=== PATIENT | male | born 1940 | race Caucasian/White ===

== ENCOUNTER 2020-01-21 06:42 | Day surgery (SDC) | payer OTHER ==
[2020-01-18 15:04] LABS: BUN Blood Urea Nitrogen 18 mg/dL (7-18); Bicarbonate 30 mmol/L (21-32); Glucose Level 101 mg/dL (74-106); Potassium 4.1 mmol/L (3.5-5.1); Sodium Level 143 mmol/L (136-145)
[2020-01-18 15:07] LABS: Absolute Lymphocytes (CBC) 1.4 K/uL (0.7-4.9); Basophils % 0.5 % (0-1.3); Hematocrit 36.2 % (39.6-49.0); Lymphocytes % 38.4 % (15.3-44.8); MPV 11.5 fL (7.6-11.3); RBC Red Blood Cell Count 3.89 M/uL (4.33-5.43)
[2020-01-18 15:12] LABS: Protime INR 0.97
--- NOTE | 2020-01-18 16:07 | RAD REPORT ---
EXAM DESCRIPTION: Kamila Schwartz And Adam (2 Views)01/18/2020 3:48 pm CLINICAL HISTORY: Preop for cardiac catheterization upper. Shortness of breath COMPARISON: None FINDINGS: Small bilateral pleural effusions. The lungs appear clear of acute infiltrate. The heart is upper limits normal size IMPRESSION: Small bilateral pleural effusions
[2020-01-18 18:12] LABS: Anisocytosis 2+; Blood Morphology Comment NOTED (NOT SEEN); Platelet Estimate DECR; White Blood Cell Scan OK (OK)
[2020-01-18 18:13] LABS: Poikilocytosis 2+
--- NOTE | 2020-01-20 06:11 | EKG ---
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
--- OUTSIDE RECORDS SUMMARY | 2020-01-21 06:45 | XMS REPORT | Continuity of Care Document ---
:1940 Author Organization [facility] t Address [address] [place] [address] Dr. Bryant. [address] [place] [address] Care Team Providers Name Role Phone Odilia MINER Primary Care Physician Sadie Crain DO Attending Clinician Viviana RN Attending Clinician Unavailable Gato RN Attending Clinician Unavailable ASHLEY Attending Clinician Unavailable ASHLEY Admitting Clinician Unavailable Payers Payer Name Policy Type Policy Effective Date Expiration Date Sour ce Number AETNA MEDICAREAETNA [id number] 2013 [place] MEDICARE HMO/PPO 00:00:00 Methodis t [id number] -PresentHMO Problems This patient has no known problems. Allergies, Adverse Reactions, Alerts This patient has no known allergies or adverse reactions. Social History Social Habit Start Date Stop Date Quantity Comments Source Sex Assigned At Jefferymeggan estradaestelita Pagan Smoking Status Start Date Stop Date Source Current some day smoker 2019-10-07 00:00:00 All Ledbetterist Medications Ordered Filled Start Stop Current Ordering Indication Dosage Frequency Signature Comments Components Source Medication Medication Date Date Medication? Clinician (SIG) Name Name aspirin 2020-0 Yes 81mg QD Take 81 mg [place] (ECOTRIN) 8-19 by mouth Method i 81 MG 09:16: daily. st enteric 58 coated tablet carvediloL 2020-0 Yes 6.25mg Q.5D Take 6.25 Scott (COREG) 8-19 mg by Methodi 6.25 MG 09:16: mouth 2 st tablet 58 (two) times a day with meals. levothyroxi 2020-0 Yes 100ug QD Take 100 [place] 8-19 mcg by Methodi (SYNTHROID) 09:16: mouth st 100 mcg 58 daily. tablet metFORMIN Yes 1000mg Q.5D Take 1,000 Scott (GLUCOPHAGE 8-19 mg by Methodi ) 1,000 mg 09:16: mouth 2 st tablet 58 (two) times a day with meals. Vital Signs Vital Name Observation Time Observation Value Comments Source Heart rate 2019-10-07 12:25:00 70 /min Tyler Paagn Systolic blood 2019-10-07 12:18:00 156 mm[Hg] [place] Scientologist pressure Diastolic blood 2019-10-07 12:18:00 74 mm[Hg] [place] Scientologist pressure Respiratory rate 2019-10-07 12:18:00 16 /min All Pagan Oxygen saturation in 2019-10-07 12:18:00 98 /min Tyler Pagan Arterial blood by Pulse oximetry Body temperature 2019-10-07 08:40:00 36.5 Noreen All Pagan Body height 2019-10-07 08:40:00 180.3 cm Tyler Pagan Body weight 2019-10-07 08:40:00 87.091 kg Tyler Pagan BMI 2019-10-07 08:40:00 26.78 kg/m2 Tyler Pagan Procedures Procedure Date / Time Performing Clinician Source Performed POC GLUCOSE 2019-10-07 10:56:00 Hal Crain odi US NEEDLE BIOPSY 2019-10-07 10:42:40 Hal Crain ethodist SURGICAL PATHOLOGY REQUEST 2019-10-07 09:44:00 Hal Crain PROTHROMBIN TIME WITH INR 2019-10-05 13:44:00 Hal Crain PARTIAL THROMBOPLASTIN 2019-10-05 13:44:00 Hal Crain TIME (PTT) HC COMPLETE BLD COUNT 2019-10-05 13:44:00 Hal Crain W/AUTO DIFF BASIC METABOLIC PANEL 2019-10-05 13:44:00 Hal Crain ESTIMATED GFR 2019-10-05 13:44:00 Hal Crain Id thodi Plan of Care Planned Activity Planned Date Details Comments Source Future Scheduled 2019-09-19 INFLUENZA VACCINE [place] Scientologist Test 00:00:00 [code = INFLUENZA VACCINE] Future Scheduled 2003-10-20 65+ PNEUMOCOCCAL [place] Scientologist Test 00:00:00 VACCINE (1 of 1 - PPSV23) [code = 65+ PNEUMOCOCCAL VACCINE (1 of 1 - PPSV23)] Future Scheduled 1988 SHINGLES VACCINES (#1) [place] Scientologist Test 00:00:00 [code = SHINGLES VACCINES (#1)] Future Scheduled 1948 DIABETES: RETINAL EYE [place] Scientologist Test 00:00:00 EXAM [code = DIABETES: RETINAL EYE EXAM] Future Scheduled 1948 DIABETIC FOOT EXAM [place] Scientologist Test 00:00:00 [code = DIABETIC FOOT EXAM] Future Scheduled 1950 URINE MICROALBUMIN [place] Scientologist Test 00:00:00 [code = URINE MICROALBUMIN] Encounters Start End Encounter Admission Attending Care Care Encounter Source Date/Time Date/Time Type Type Clinicians Facility Department ID 2019-10-07 2019-10-07 Outpatient [facility] [id number] [place] 00:00:00 00:00:00 HAL 205 Method i 2019-10-05 2019-10-05 Outpatient [facility] [id number] [place] 00:00:00 00:00:00 HAL 621 Method i 2016-03-27 2016-03-27 Outpatient [facility] 012 [id number] [place] 00:00:00 00:00:00 DISHA 508 Method i 2015-11-16 2015-11-16 Outpatient [facility] 012 [id number] [place] 00:00:00 00:00:00 DISHA 906 Method i 2015-11-11 2015-11-11 Outpatient [facility] 012 [id number] [place] 00:00:00 00:00:00 DISHA [address] Results Test Description Test Time Test Comments Results Result Comments Source Surgical pathology request 2019-10-09 19:58:17 Test Item Value Reference Range Interpretation Comme nts Case number (test code = 0174249) [id number] Surgical pathology report (test code = See link below for PDF Lab R eport 6263) Result status (test code = 2458821) This is Final Report for [id number] Tyler PaganUS Needle [id number] 11:14:23Hm Interface, Radiology Results 10/07/2019 11:17 AM CDTProcedure:CT-guided left renal biop syPerforming Radiologist:Alton Lara, MDAssistants:NoneAnesthesia Type: Intraservice moderate sedation was administered by the procedure nurse and monitored by the procedure physician for51 minutes. Lidocaine 1% was used for local anesthesia.Preprocedure Diagnosis:ProteinuriaPost Procedure Diagnosis:Same Technique:After explaining the procedure as well as its benefits and risks including but not limited to bleeding, infection, and damage to adjacent structures, all of the patient's questions were answered to apparent satisfaction and written informed consent was then obtained.The patient was terence en to the ultrasound suite and placed prone on the table. The left flank was interrogated with ultrasound and appropriate site access identified within the inferior pole of the left kidney. The overlying skin was then prepped and draped in usual sterile fashion. Lidocaine was administered locally.Under direct ultrasound guidance a 17-gauge introducer needle was inserted into the cortex of the inferior pole of the left kidney. In a coaxial fashion, multiple 18-gauge core biopsy samples were obtained.Specimens were sent to pathology and adequacy confirmed.Following procedure all needles were removedfrom the patient. Post procedure imaging revealed a small perinephric hematoma. Hemostasis was achieved after direct ultrasound-guided manual compression. Patient tolerated the procedure well.Complications:NoneSpecimens Removed:As aboveEstimated Blood Loss:Less than 100 mLBlood/Blood Products Administered:NoneGrafts/Implants:As described in the above report.Impression:Successful, uncomplicated ultrasound- guided left renal biopsy.[facility]-[id number] [facility] [id number] 10:59:30 Test Item Value Reference Range Interpretation Comments POC glucose (test code 157 mg/dL 65-99 H Opera tor Name: Viviana = [id number]) ElaineDevice ID : [id number] Lab Interpretation Abnormal (test code = 16926-1) Tyler Pagan
--- OUTSIDE RECORDS SUMMARY | 2020-01-21 06:45 | XMS REPORT | Clinical Summary ---
:1940 Author Organization [facility] Address [address] [place] [address] Care Team Providers Name Role Phone MD Odilia Primary Care Provider Allergies No Known Active Allergies Medications Medication Sig Dispensed Refills Start Date End Date Status aspirin (ECOTRIN) 81 MG Take 81 mg by 0 Active enteric coated tablet mouth daily. carvediloL (COREG) 6.25 Take 6.25 mg by 0 Active MG tablet mouth 2 (two) times a day with meals. levothyroxine Take 100 mcg by 0 Active (SYNTHROID) 100 mcg mouth daily. tablet metFORMIN (GLUCOPHAGE) Take 1,000 mg by 0 Active 1,000 mg tablet mouth 2 (two) times a day with meals. Active Problems Not on file Encounters Date Type Specialty Care Team Description 10/07/2019 Hospital Encounter Radiology Francisco Crain DO Sia, Elaine, RN 10/07/2019 Travel 10/05/2019 Travel 09/16/2019 Travel 09/16/2019 Telephone Pre-Admission Dali Hoskins Testing RN 09/14/2019 Travel 09/07/2019 Transcribe Orders Radiology Francisco Crain DO (Primary Dx) after 01/20/2019 Surgical History Surgery Date Site/Laterality Comments CORONARY ARTERY BYPASS GRAFT THYROIDECTOMY, PARTIAL Left Medical History Medical History Date Comments Hypertension Diabetes mellitus (HCC) Thyroid disease CAD (coronary artery disease) Social History Tobacco Use Types Packs/Day Years Used Date Current Some Day Smoker Sex Assigned at Date Recorded Not on file Last Filed Vital Signs Vital Sign Reading Time Taken Comments Blood Pressure 156/74 10/07/2019 12:18 PM CDT Pulse 70 10/07/2019 12:25 PM CDT Temperature 36.5 C (97.7 F) 10/07/2019 8:40 AM CDT Respiratory Rate 16 10/07/2019 12:18 PM CDT Oxygen Saturation 98% 10/07/2019 12:18 PM CDT Inhaled Oxygen Concentration - - Weight 87.1 kg (192 lb) 10/07/2019 8:40 AM CDT Height 180.3 cm (5' 11") 10/07/2019 8:40 AM CDT Body Mass Index 26.78 10/07/2019 8:40 AM CDT Plan of Treatment Health Maintenance Due Date Last Done Comments DIABETES: RETINAL EYE EXAM 1950 DIABETIC FOOT EXAM 1950 URINE MICROALBUMIN 1948 SHINGLES VACCINES (#1) 1988 65+ PNEUMOCOCCAL VACCINE (1 of 1 - PPSV23) 10/20/2003 INFLUENZA VACCINE 09/19/2019 Procedures Procedure Name Priority Date/Time Associated Comments Diagnosis POC GLUCOSE Routine 10/07/2019 10:56 Results for this AM CDT procedure are i n the results section. US NEEDLE BIOPSY Routine 10/07/2019 10:42 Other proteinuria Re sults for this AM CDT procedure are i n the results section. SURGICAL PATHOLOGY Routine 10/07/2019 9:44 Resul ts for this REQUEST AM CDT procedure are i n the results section. ESTIMATED GFR Routine 10/05/2019 1:44 Results fo r this PM CDT procedure are i n the results section. BASIC METABOLIC PANEL Routine 10/05/2019 1:44 Preop testing R esults for this PM CDT procedure are i n the results section. HC COMPLETE BLD COUNT Routine 10/05/2019 1:44 Preop testing R esults for this W/AUTO DIFF PM CDT procedure are i n the results section. PARTIAL THROMBOPLASTIN Routine 10/05/2019 1:44 Preop testing Results for this TIME (PTT) PM CDT procedure are i n the results section. PROTHROMBIN TIME WITH Routine 10/05/2019 1:44 Preop testing R esults for this INR PM CDT procedure are i n the results section. after 01/20/2019 Results POC glucose (10/07/2019 10:56 AM CDT) Pathologist Sig nature POC glucose 157 (H) 65 - 99 mg/dL NEVIN GOMEZ Comment: [facility] Resolution Expert Name: Viviana Sandy Device ID: [id number] Specimen Blood Performing Organization Address City/State/ZIP Code Phon e Number [facility] DEPARTMENT OF PATHOLOGY [address] [facility]. [place] [address] AND GENOMIC MEDICINE [facility] [place] [address] [facility] [place] [address] H[facility] US Needle Biopsy (10/07/2019 10:42 AM CDT) Specimen Narrative Performed At [facility] Procedure: CT-guided left renal biopsy Performing Radiologist: Alton Lara MD Assistants: None Anesthesia Type: Intraservice moderate sedation was administered by the procedure nurse and monitored by the procedure physician for51 minutes . Lidocaine 1% was used for local anesthesia. Preprocedure Diagnosis: Proteinuria Post Procedure Diagnosis: Same Technique: After explaining the procedure as well as its benefits and risks including but not limited to bleeding, infection, and damage to adjacent structures, all of the patient's questions were answer ed to apparent satisfaction and written informed consen t was then obtained. The patient was taken to the ultrasound suite and plac ed prone on the table. The left flank was interrogated with ultrasound and appropriate site access identified within the inferior pole of the left kidney. The overlying skin was then prepped and draped in usual sterile fashion. Lidocai ne was administered locally. Under direct ultrasound guidance a 17-gauge introducer needle was inserted into the cortex of the inferior pole of the l eft kidney. In a coaxial fashion, multiple 18-gauge core biopsy samples were obtained. Specimens were sent to pathology and shahzad quacy confirmed. Following procedure all needles were removed from the patient. Post procedure imaging revealed a small perinephric hematom a. Hemostasis was achieved after direct ultrasound-guided manual desirae any. Patient tolerated the procedure well. Complications: None Specimens Removed: As above Estimated Blood Loss: Less than 100 mL Blood/Blood Products Administered: None Grafts/Implants: As described in the above report. Impression: Successful, uncomplicated ultrasound-peter ded left renal biopsy. [facility]-[id number] Procedure Note Interface, Radiology Results Incoming - 10/07/2019 11:17 AM CDT Procedure: CT-guided left renal biopsy Performing Radiologist: Alton Lara MD Assistants: None Anesthesia Type: Intraservice moderate sedation was admin istered by the procedure nurse and monitored by the procedure physician for51 minutes. Lidocaine 1% was used for local anesthesia. Preprocedure Diagnosis: Proteinuria Post Procedure Diagnosis: Same Technique: After explaining the procedure as well a s its benefits and risks including but not limited to bleeding, infection, and damage to adjacent structures, all of the patient's questions were answered to apparent satisfaction and written informed consent was then obtained. The patient was taken to the ultrasound suite and placed prone on the table. The left flank was interrogated with ultrasound and appropriate site access identified within the inferior pole of the left kidney. The overlying skin was then prepped and draped in usual sterile fashion. Lidocai ne was administered locally. Under direct ultrasound guidance a 17-ga uge introducer needle was inserted into the cortex of the inferior pole of the left kidney. In a coaxial fashion, multiple 18-gauge core biopsy samples were obtained. Specimens were sent to pathology and adequacy confirmed. Following procedure all needles were rem mallory from the patient. Post procedure imaging revealed a small perinephric hematoma. Hemostasis was achieved after direct ultrasound-guided manual compression. Patient tolerated the procedure well. Complications: None Specimens Removed: As above Estimated Blood Loss: Less than 100 mL Blood/Blood Products Administered: None Grafts/Implants: As described in the above report. Impression: Successful, uncomplicated ultrasound-peter ded left renal biopsy. [facility]-[id number] Performing Organization Address City/[facility]/ZIP Code Phon e Number [facility] [address] [place] [address] Surgical pathology request (10/07/2019 9:44 AM CDT) [facility] DEPARTMENT OF PATHOLOGY AND GENOMIC MEDICINE Surgical pathology See link below [facility] DEPARTMENT OF report for PDF Lab PATHOLOGY AND Report GENOMIC MEDICINE Result status This is Final [facility] DEPARTMENT OF Report for PATHOLOGY AND [id number] GENOMIC MEDICINE Specimen Performing Organization Address City/[facility]/ZIP Code Phon e Number [facility] DEPARTMENT OF PATHOLOGY [address] [facility]. [place] [address] AND GENOMIC MEDICINE Estimated GFR (10/05/2019 1:44 PM CDT) Estimated GFR 82 mL/min/1.73 [facility] Comment: m2 [place] Catergory Units Interpretation HOS PITAL G1 >=90 Normal or high G2 60-89 Mildly decreased G3a 45-59 Mildly to moderately decreas ed G3b 30-44 Moderately to severely decre ased G4 15-29 Severely decreased G5 <15 Kidney failure The eGFR was calculated using the Chronic Kidney Disea se Epidemiology Collaboration (CKD-EPI) equation. Interpretation is based on recommendations of the National Kidney Foundation-Kidney Disease Outcomes Olu lity Initiative (NKF-KDOQI) published in 2014. Specimen Performing Organization Address [facility] Phon e Number [facility] DEPARTMENT OF PATHOLOGY [address] [place] [address] Partial thromboplastin time, activated (10/05/2019 1:44 PM CDT) PTT 28.6 23.0 - 36.0 [facility] Comment: [facility] PTT therapeutic range for unfractionated heparin is HOSPITAL 61.0-112.0 seconds which corresponds to Anti-Xa 0.3-0.7 U/ml. Specimen Blood Performing Organization Address [facility] Phon e Number [facility] DEPARTMENT OF PATHOLOGY [address] [place] [address] Prothrombin time with INR (10/05/2019 1:44 PM CDT) Pathologist [facility] Prothrombin time 13.8 11.5 - 14.5 [facility] INR 1.1 NEVIN Comment: PATRICIA VIVAR The International Normalized Ratio (INR) is a therapeu [facility] monitoring tool for patients who are stable on oral anticoagulant therapy. An INR of 2.0-3.0 is suggested for deep vein thrombosis/pulmonary embolism. Specimen Blood Performing Organization Address [facility] Phon e Number [facility] DEPARTMENT OF PATHOLOGY [address] [place] [address] CBC with platelet and differential (10/05/2019 1:44 PM CDT) WBC 4.2 (L) 4.5 - 11.0 [facility] k/uL [facility] RBC 3.60 (L) 4.40 - 6.00 [facility] m/uL [facility] HGB 10.8 (L) 14.0 - 18.0 [facility] g/dL [facility] HCT 34.7 (L) 41.0 - 51.0 % [facility] MCV 96.4 82.0 - 100.0 [facility] MCH 30.0 27.0 - 34.0 [facility] MCHC 31.1 31.0 - 37.0 [facility] g/dL [facility] RDW - SD 56.6 (H) 37.0 - 55.0 [facility] MPV SEE 6.9 - [address] [facility] COMMENTComment: FAY No report HOSPITAL Platelet count 71 (L) 150 - 400 [facility] K/uL [facility] Nucleated RBC 0.00 /100 WBC [facility] Neutrophils 47.1 39.0 - 69.0 % [facility] Lymphocytes 41.8 25.0 - 45.0 % [facility] Monocytes 9.7 0.0 - 10.0 % [facility] Eosinophils 1.0 0.0 - 5.0 % [facility] Basophils 0.2 0.0 - 1.0 % [facility] Immature granulocytes 0.2 0.0 - 1.0 % [facility] Specimen Blood Performing Organization Address City/State/ZIP Code Phon e Number [facility] DEPARTMENT OF PATHOLOGY [address] [facility] [place] [address] AND GENOMIC MEDICINE [facility] [address] [facility] [place] [address] HOSPITAL Basic metabolic panel (10/05/2019 1:44 PM CDT) Pathologist [facility] nature Sodium 139 135 - 148 mEq/L [facility] Potassium 4.6 3.5 - 5.0 mEq/L [facility] Chloride 105 98 - 112 mEq/L [facility] CO2 28 24 - 31 mEq/L [facility] Anion gap 6@ANIO (L) 7 - 15 mEq/L [facility] BUN 15 8 - 23 mg/dL [facility] Creatinine 0.85 0.70 - 1.20 mg/dL [facility] Glucose 155 (H) 65 - 99 mg/dL [facility] Calcium 9.0 8.8 - 10.2 mg/dL [facility] Specimen Blood Performing Organization Address City/State/ZIP Code Phon e Number [facility] DEPARTMENT OF PATHOLOGY [address] [facility] [address] AND GENOMIC MEDICINE [facility] [address] [facility], [place] [address] HOSPITAL after 01/20/2019 Advance Directives For more information, please contact: [phone] Type Date Recorded 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
[2020-01-21] MEDS ORDERED: NA CHLORIDE 0.9% 500 ML ONE (07:01)
[2020-01-21] MEDS ORDERED: HEPA 1000U/500MLS 1,000 UNIT/500 ML BAG IV ONE (07:39)
[2020-01-21] MEDS ORDERED: MIDAZOLAM HCL 2 MG/2 ML INJ ONE ×2 (07:40→07:48)
[2020-01-21] MEDS ORDERED: NA CHLORIDE 0.9% 0 ML ONE (07:40)
[2020-01-21] MEDS ORDERED: ATROPINE SULF 1 MG/10 ML SYR IV ONE (07:40)
[2020-01-21] MEDS ORDERED: FENTANYL CITR 100 MCG/2 ML ONE (07:40)
--- NOTE | 2020-01-21 08:31 | OP ---
Surgeon: Sean Ponce MD Rubber [employer] Plastics Worker: Oleg De Jesus. The patient will remain in the hospital for 2 hours at bedrest, go home and see me in the office in t he next 2 weeks. Admitted to my service as an outpatient on 01/21/2020. He was admitted to the laboratory apparatus glass grinder as an outpati ent for a heart catheterization. Indication: CAD, chest pain, positive stress test. History Of Present Illness: Mr. Almendarez is 79, has had bypass surgery in 2004, positive stress test recently, brought to the laboratory apparatus glass grinder today as an outpatient. He underwent a selective coronary artery a ngiography, vein graft injection to the OM and a KU injection to the LAD. Description Of Procedure: He had been prepped and draped in the routine sterile fashion. Given Vers ed and fentanyl for sedation. Using a 6-[place] sheath, we used a Seldinger technique to introduce it in the right common femoral artery successfully after 10 cc of xylocaine. There were no hematoma. Angiography was normal. Angioseal was used to close the case. A JL4 catheter was used to cannulate the left main. There was a 70% left main stenosis. LAD was completely occluded. RCA was cannulated with the JR4 and was small and nondominant. Also using the JR4 catheter, we cannulated the vein gra ft to the OM that was widely patent. We then moved the JR4 catheter to the KU and the ejection the re showed a patent KU to the LAD. 6-[place] sheath and catheters were used. There were no complica tions. Blood Loss: 5 mL. Postoperative Diagnosis: Severe coronary artery disease. Plan: To continue medical therapy, probably increase his beta-neto dose. Anesthesia: Total conscious sedation was 45 minutes. NB/MODL Voice ID: [id number] Report ID: [id number]
[2020-01-21 09:55] VITALS: TEMP 97.2
[2020-01-21 11:01] VITALS: O2SAT 96
[2020-01-21 11:02] VITALS: BP 168/76
== END 2020-01-21 10:25 | disposition home or self-care (01) ==
LOC: PRE 06:42 → CCL 10:25
DX: I25.10 Atherosclerotic heart disease of native coronary artery without angina pectoris (principal); I25.82 Chronic total occlusion of coronary artery; I65.23 Occlusion and stenosis of bilateral carotid arteries; I13.0 Hypertensive heart and chronic kidney disease with heart failure and stage 1 through stage 4 chronic kidney disease, or unspecified chronic kidney disease; E11.22 Type 2 diabetes mellitus with diabetic chronic kidney disease; N18.2 Chronic kidney disease, stage 2 (mild); I50.22 Chronic systolic (congestive) heart failure; E78.2 Mixed hyperlipidemia; E03.9 Hypothyroidism, unspecified; Z95.1 Presence of aortocoronary bypass graft; Z87.891 Personal history of nicotine dependence; Z20.828 Contact with and (suspected) exposure to other viral communicable diseases; Z82.49 Family history of ischemic heart disease and other diseases of the circulatory system
CPT/HCPCS: 93005; 85025; 80048; 36415; 85610; 82947; 85730; 71046; 93455; U0002; C1893; C1760; J2250 ×2; J3010; J7040; J1644; J0583

== ENCOUNTER 2020-04-04 18:44 | Emergency (ER) | payer OTHER ==
--- NOTE | 2020-04-04 19:13 | RAD REPORT ---
EXAM DESCRIPTION: CT - CTHCSPWOC - 04/04/2020 7:03 pm CLINICAL HISTORY: Trauma, head and neck injury. PAIN COMPARISON: No comparisons TECHNIQUE: Axial 5 mm thick images of the head were obtained. Axial 2 mm thick images of the cervical spine were obtained with sagittal and coronal reconstruction images generated and reviewed. All CT scans are performed using dose optimization technique as appropriate and may include automated exposure control or mA/KV adjustment according to patient size. FINDINGS: CT HEAD WITHOUT CONTRAST: No acute hemorrhage, hydrocephalus or extra-axial collection is identified.Mild generalized brain atr ophy is present with mild periventricular and deep white matter chronic microvascular ischemic change s.No areas of brain edema or midline shift. The paranasal sinuses and mastoids are clear.The calvarium is intact. Both vertebral arteries are alfredo cified. CT CERVICAL SPINE WITHOUT CONTRAST: No fracture or subluxation.Moderate multilevel cervical degenerative changes are present.No preverteb ral soft tissues swelling is identified. Left pleural effusion noted. Postsurgical changes right thyroid lobe. IMPRESSION: No acute intracranial or cervical spine findings. Left pleural effusion.
--- NOTE | 2020-04-04 19:19 | RAD REPORT ---
EXAM DESCRIPTION: CT - Spine Lumbar Wo Con - 04/04/2020 7:03 pm CLINICAL HISTORY: Radiculopathy. PAIN COMPARISON: No comparisons TECHNIQUE: Axial noncontrast CT imaging of the lumbar spine was performed with coronal and sagittal re-formatted images. All CT scans are performed using dose optimization technique as appropriate and may include automated exposure control or mA/KV adjustment according to patient size. FINDINGS: A mildly displaced fracture affects the right L1 transverse process. No additional fractur e is seen. Postsurgical changes are seen lower lumbar spine with laminectomy. Stent is present in the left commo n iliac artery. Central canal narrowing is present at L3-4. Tiny left renal stone are present. Large right renal cyst . IMPRESSION: Mildly displaced fracture right L1 transverse process. Moderate lumbar spondylosis.
--- NOTE | 2020-04-04 19:38 | RAD REPORT ---
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 No evidence of acute fracture or dislocation identified.
[2020-04-04] MEDS ORDERED: ONDANSETRON 4 MG/2 ML VIAL ONE (23:28)
[2020-04-04] MEDS ORDERED: MORPHINE 4 MG/ML SYR ONE (23:28)
[2020-04-04 23:44] LABS: Absolute Lymphocytes (CBC) 1.3 K/uL (0.7-4.9); Basophils % 0.4 % (0-1.3); Hematocrit 34.4 % (39.6-49.0); Lymphocytes % 27.3 % (15.3-44.8); MPV 11.8 fL (7.6-11.3); RBC Red Blood Cell Count 3.71 M/uL (4.33-5.43)
[2020-04-04 23:45] LABS: Protime INR 1.05
[2020-04-04 23:58] LABS: ALT/SGPT 23 U/L (12-78); AST/SGOT 22 U/L (15-37); Albumin 3.2 g/dL (3.4-5.0); Alkaline Phosphatase 78 U/L (45-117); BUN Blood Urea Nitrogen 21 mg/dL (7-18); Bicarbonate 26 mmol/L (21-32); Bilirubin Direct 0.2 mg/dL (0-0.2); Bilirubin Total 0.6 mg/dL (0.2-1.0); Glucose Level 172 mg/dL (74-106); Magnesium 1.6 mg/dL (1.8-2.4); NT PRO-BNP 9088 pg/mL (<450); Potassium 3.7 mmol/L (3.5-5.1); Protein, Total 6.1 g/dL (6.4-8.2); Sodium Level 142 mmol/L (136-145); Troponin (Emerg Dept Use Only) 0.02 ng/mL (0.0-0.045)
--- NOTE | 2020-04-05 00:28 | EDPHYS ---
Physician Documentation [facility] Name: Harry Almendarez Age: 79 yrs Sex: Male : 1940 Arrival Date: 04/04/2020 Time: 18:45 Bed 2 Private MD: ED Physician Kishan Escudero HPI: 04/04 22:56 This 79 yrs old Male presents to ER via Wheelchair with complaints of Fall pm1 Injury. 22:56 Details of fall: The patient fell from an upright position, while walking. Onset: The pm1 symptoms/episode began/occurred today, at 16:00. Associated injuries: The patient sustained injury to the head, abrasion, injury to the low back, pain. Severity of symptoms: in the emergency department the symptoms are unchanged. The patient has not experienced similar symptoms in the past. Patient avoiding slipping on ice prior to his fall injury today. Patient does not recall the fall or how it happened but his reports that he came in with wet pants and apparently he fell. Historical: - Allergies: 18:54 No Known Allergies; ss - Immunization history:: Adult Immunizations up to date, Flu vaccine is not up to date. - Social history:: Smoking status: Patient reports the use of cigarette tobacco products, smokes one-half pack cigarettes per day. ROS: 22:56 Constitutional: Negative for fever, chills, and weight loss, Cardiovascular: Negative pm1 for chest pain, palpitations, and edema, Respiratory: Negative for shortness of breath, cough, wheezing, and pleuritic chest pain. 22:56 Abdomen/GI: Negative for abdominal pain, nausea, vomiting, diarrhea, and constipation, Back: Negative for injury and pain, MS/Extremity: Negative for injury and deformity. 22:56 Back: Positive for pain with movement, of the lumbar area. 22:56 Skin: Positive for abrasion(s), of the top of head. Exam: 22:56 Constitutional: This is a well developed, well nourished patient who is awake, alert, pm1 and in no acute distress. Head/Face: Normocephalic, atraumatic. 22:56 Skin: Warm, dry with normal turgor. Normal color with no rashes, no lesions, and no evidence of cellulitis. MS/ Extremity: Pulses equal, no cyanosis. Neurovascular intact. Full, normal range of motion. 22:56 Cardiovascular: Exam negative for acute changes, Rate: normal, Rhythm: regular, Pulses: no pulse deficits are appreciated. 22:56 Respiratory: Exam negative for acute changes, respiratory distress, shortness of breath. 22:56 Abdomen/GI: Exam negative for acute changes, Inspection: abdomen appears normal, Palpation: abdomen is soft and non-tender, in all quadrants. 22:56 Back: vertebral tenderness, is appreciated at L1 and L2. 22:56 Neuro: Exam negative for acute changes, Orientation: is normal, Mentation: is normal, Motor: moves all fours, strength is normal, Sensation: is normal, no obvious gross deficits. Vital Signs: 18:47 BP 166 / 71; Pulse 73; Resp 17; Temp 98.0(TE); Pulse Ox 98% on R/A; Weight 85.28 kg; ss Height 5 ft. 11 in. (180.34 cm); Pain 0/10; 23:45 BP 144 / 60; Pulse 66; Resp 16; Pulse Ox 95% on R/A; jb4 18:47 Body Mass Index 26.22 (85.28 kg, 180.34 cm) ss [place] Coma Score: 18:47 Eye Response: spontaneous(4). Verbal Response: oriented(5). Motor Response: obeys ss commands(6). Total: 15. Trauma Score (Adult): 18:47 Eye Response: spontaneous(1); Verbal Response: oriented(1); Motor Response: obeys ss commands(2); Systolic BP: > 89 mm Hg(4); Respiratory Rate: 10 to 29 per min(4); [place] Score: 15; Trauma Score: 12 MDM: 18:58 Patient medically screened. jr8 04/05 00:24 Data reviewed: vital signs. Data interpreted: Pulse oximetry: on room air is 95 %. pm1 Interpretation: normal. Counseling: I had a detailed discussion with the patient and/or guardian regarding: the historical points, exam findings, and any diagnostic results supporting the discharge/admit diagnosis, lab results, radiology results, the need for outpatient follow up, to return to the emergency department if symptoms worsen or persist or if there are any questions or concerns that arise at home. 04/04 22:56 Order name: Basic Metabolic Panel; Complete Time: 00:10 pm1 04/04 22:56 Order name: CBC with Diff; Complete Time: 00:37 pm1 04/04 22:56 Order name: LFT's; Complete Time: 00:10 pm1 04/04 22:56 Order name: Magnesium; Complete Time: 00:10 pm1 04/04 22:56 Order name: NT PRO-BNP; Complete Time: 00:10 pm1 04/04 22:56 Order name: PT-INR; Complete Time: 00:10 pm04/04 18:56 Order name: CT Head C Spine; Complete Time: 19:14 [facility] 04/04 18:56 Order name: CT Lumbar Spine Wo Con; Complete Time: 19:27 [facility] 04/04 18:56 Order name: XRAY Pelvis; Complete Time: 19:44 [facility] 04/04 22:56 Order name: Troponin (emerg Dept Use Only); Complete Time: 00:11 pm1 04/04 22:56 Order name: XRAY Chest (1 view) pm1 04/04 23:47 Order name: CBC Smear Scan; Complete Time: 00:37 EDMS 04/04 22:56 Order name: EKG; Complete Time: 22:57 pm1 04/04 22:56 Order name: Cardiac monitoring; Complete Time: 23:20 pm04/04 22:56 Order name: EKG - Nurse/Tech; Complete Time: 23:20 pm04/04 22:56 Order name: IV Saline Lock; Complete Time: 23:34 pm1 04/04 22:56 Order name: Labs collected and sent; Complete Time: 23:34 pm04/04 22:56 Order name: O2 Per Protocol; Complete Time: 23:20 pm04/04 22:56 Order name: O2 Sat Monitoring; Complete Time: 23:20 pm1 Administered Medications: 04/04 23:24 Drug: Zofran (Ondansetron) 4 mg Route: IVP; Site: right forearm; jb4 23:26 Drug: morphine 4 mg Route: IVP; Site: right forearm; jb4 04/05 00:58 Drug: morphine 4 mg Route: IVP; Site: right forearm; ea Disposition: 01:58 Co-signature as Attending Physician, Kishan Escudero MD I agree with the assessment and kdr plan of care. Disposition: 04/05/20 00:27 Discharged to Home. Impression: MIldly displaced fracture right L1 transverse process, Fall on same level from slipping, tripping and stumbling, Unspecified injury of head. - Condition is Stable. - Discharge Instructions: Vertebral Fracture, Head Injury, Adult. - Prescriptions for Tylenol- Codeine #3 300-30 mg Oral Tablet - take 2 tablets by ORAL route every 6 hours As needed; 20 tablet. - Medication Reconciliation Form, Thank You Letter, Antibiotic Education, Prescription Opioid Use form. - Follow up: Emergency Department; When: As needed; Reason: Worsening of condition. Follow up: Private Physician; When: 2 - 3 days; Reason: Recheck today's complaints, Continuance of care, Re-evaluation by your physician. - Problem is new. - Symptoms have improved. Signatures: Dispatcher [employer] EDMS Kishan Escudero MD MD [facility] Sonal Baker RN RN ss Kobi Yo PA PA jr8 Rafael Velarde, JAMES DIE FITTER pm1 Blaise Rolon RN RN jb4 Raven Nelson RN RN ea Corrections: (The following items were deleted from the chart) 00:27 00:27 04/05/2020 00:27 Discharged to Home. Impression: MIldly displaced fracture right pm1 L1 transverse processFall on same level from slipping, tripping and stumbling. Condition is Stable. Forms are Medication Reconciliation Form, Thank You Letter, Antibiotic Education, Prescription Opioid Use. Follow up: Emergency Department; When: As needed; Reason: Worsening of condition. Follow up: Private Physician; When: 2 - 3 days; Reason: Recheck today's complaints, Continuance of care, Re-evaluation by your physician. Problem is new. Symptoms have improved. pm1 01:00 00:27 04/05/2020 00:27 Discharged to Home. Impression: MIldly displaced fracture right jb4 L1 transverse processFall on same level from slipping, tripping and stumbling; Unspecified injury of head. Condition is Stable. Forms are Medication Reconciliation Form, Thank You Letter, Antibiotic Education, Prescription Opioid Use. Follow up: Emergency Department; When: As needed; Reason: Worsening of condition. Follow up: Private Physician; When: 2 - 3 days; Reason: Recheck today's complaints, Continuance of care, Re-evaluation by your physician. Problem is new. Symptoms have improved. pm1
--- NOTE | 2020-04-05 00:28 | ER ---
Nurse's Notes [facility] Name: Harry Almendarez Age: 79 yrs Sex: Male : 1940 Arrival Date: 04/04/2020 Time: 18:45 Bed 2 Private MD: Diagnosis: Fall on same level from slipping, tripping and stumbling;MIldly displaced fracture right L1 transverse process;Unspecified injury of head Presentation: 04/04 18:47 Chief complaint: Patient states: fell from standing position around 4pm this evening. ss Pt does not remember falling. C/o severe R low back pain and small scrap to top of head. Care prior to arrival: None. Mechanism of Injury: Fall from standing position. Trauma event details: Injury occurred in the [facility], Injury occurred: at home. Injury occurred: April 04, 2020 Injury occurred at: 16:00. 18:47 Method Of Arrival: Wheelchair ss 18:47 Acuity: QUINTIN 2 ss 18:54 Coronavirus screen: Client denies travel out of the [place] in the last 14 days. Ebola ss Screen: Patient denies exposure to infectious person. Patient denies travel to an Ebola-affected area in the 21 days before illness onset. Initial Sepsis Screen: Does the patient meet any 2 criteria? No. Patient's initial sepsis screen is negative. Does the patient have a suspected source of infection? No. Patient's initial sepsis screen is negative. Risk Assessment: Do you want to hurt yourself or someone else? Patient reports no desire to harm self or others. Onset of symptoms was April 04, 2020. Trauma Activation: Alert Physician: ED Physician; Name: ; Notified At: ; Arrived At: Physician: General Surgeon; Name: ; Notified At: ; Arrived At: Physician: Radiology; Name: ; Notified At: ; Arrived At: Physician: Respiratory; Name: ; Notified At: ; Arrived At: Physician: Lab; Name: ; Notified At: ; Arrived At: Historical: - Allergies: 18:54 No Known Allergies; ss - Immunization history:: Adult Immunizations up to date, Flu vaccine is not up to date. - Social history:: Smoking status: Patient reports the use of cigarette tobacco products, smokes one-half pack cigarettes per day. Screenin:47 Abuse screen: Denies threats or abuse. Denies injuries from another. ss 23:20 Nutritional screening: No deficits noted. Tuberculosis screening: No symptoms or risk ea factors identified. Fall Risk Fall in past 12 months (25 points). Primary Survey: 18:47 NO uncontrolled hemorrhage observed. Breathing/Chest: Respiratory pattern: regular, ss Respiratory effort: spontaneous, unlabored, Breath sounds: clear, bilaterally. Circulation: Pulses: palpable right radial artery, right posterior tibial artery, left radial artery and left posterior tibial artery. Disability Alert. Exposure/Environment: All clothing and personal items were removed. Forensic evidence collection is not deemed to be indicated at this time. Items placed in patient belonging bag. There is no evidence of uncontrolled external bleeding. No obvious injuries are noted at this time. 23:00 Reassessment Airway Airway Patent Oral cavity Clear +Gag reflex Breathing/Chest jb4 Respiratory pattern Regular Respiratory effort Spontaneous Unlabored Chest inspection Symmetrical Circulation Color [place] Temperature Warm Dry. Assessment: 18:47 General: Appears in no apparent distress. comfortable, Behavior is calm, cooperative, ss Denies fever, feeling ill, fatigue, chills. Pain: Complains of pain in low back Pain currently is 0 out of 10 on a pain scale. at worst was 8 out of 10 on a pain scale. Neuro: Level of Consciousness is awake, alert, obeys commands, Oriented to person, place, time, situation, Casino Floor Runner are equal bilaterally. EENT: Oral mucosa is moist. Throat is clear. Respiratory: Airway is patent Respiratory effort is even, unlabored, Respiratory pattern is regular, symmetrical. Derm: Skin is pink, warm \T\ dry. Injury Description: Abrasion sustained to top of head. 18:52 Reassessment: Pt to CT VIA wheelchair. ss 23:00 Reassessment: Patient appears in no apparent distress at this time. Patient and/or jb4 family updated on plan of care and expected duration. Pain level reassessed. Patient is alert, oriented x 3, equal unlabored respirations, skin warm/dry/pink. 23:54 Reassessment: Patient appears in no apparent distress at this time. Patient and/or jb4 family updated on plan of care and expected duration. Pain level reassessed. Patient is alert, oriented x 3, equal unlabored respirations, skin warm/dry/pink. Patient states feeling better. 04/05 00:30 Reassessment: Patient appears in no apparent distress at this time. Patient and/or jb4 family updated on plan of care and expected duration. Pain level reassessed. Patient is alert, oriented x 3, equal unlabored respirations, skin warm/dry/pink. Vital Signs: 04/04 18:47 BP 166 / 71; Pulse 73; Resp 17; Temp 98.0(TE); Pulse Ox 98% on R/A; Weight 85.28 kg; ss Height 5 ft. 11 in. (180.34 cm); Pain 0/10; 23:45 BP 144 / 60; Pulse 66; Resp 16; Pulse Ox 95% on R/A; jb4 18:47 Body Mass Index 26.22 (85.28 kg, 180.34 cm) ss [place] Coma Score: 18:47 Eye Response: spontaneous(4). Verbal Response: oriented(5). Motor Response: obeys ss commands(6). Total: 15. Trauma Score (Adult): 18:47 Eye Response: spontaneous(1); Verbal Response: oriented(1); Motor Response: obeys ss commands(2); Systolic BP: > 89 mm Hg(4); Respiratory Rate: 10 to 29 per min(4); [place] Score: 15; Trauma Score: 12 ED Course: 18:45 Patient arrived in ED. ss 18:52 Triage completed. ss 18:54 Arm band placed on right wrist. ss 18:55 Kobi Yo PA is PHCP. jr8 18:55 Benjamin Downs MD is Attending Physician. jr8 19:03 CT Head C Spine In Process Unspecified. EDMS 19:03 CT Lumbar Spine Wo Con In Process Unspecified. EDMS 19:26 XRAY Pelvis In Process Unspecified. EDMS 22:48 Rafael Velarde NP is PHCP. pm1 22:48 Kishan Escudero MD is Attending Physician. pm1 23:05 Blaise Rolon, ANGELLA is Primary Nurse. jb4 23:16 XRAY Chest (1 view) In Process Unspecified. EDMS 23:20 Patient has correct armband on for positive identification. Placed in gown. Bed in low ea position. Call light in reach. Side rails up X 1. lactation specialist on. Pulse ox on. NIBP on. 23:20 Patient maintains SpO2 saturation greater than 95% on room air. ea 23:21 Thermoregulation: warm blanket given to patient. ea 04/05 00:59 No provider procedures requiring assistance completed. IV discontinued, intact, ea bleeding controlled, No redness/swelling at site. Pressure dressing applied. Administered Medications: 04/04 23:24 Drug: Zofran (Ondansetron) 4 mg Route: IVP; Site: right forearm; jb4 23:26 Drug: morphine 4 mg Route: IVP; Site: right forearm; jb4 04/05 00:58 Drug: morphine 4 mg Route: IVP; Site: right forearm; ea Outcome: 00:27 Discharge ordered by MD. pm1 00:55 Discharged to home ambulatory, via wheelchair, with family. jb4 00:55 Condition: stable 00:55 Discharge instructions given to patient, family, Instructed on discharge instructions, follow up and referral plans. medication usage, Demonstrated understanding of instructions, follow-up care, medications, Prescriptions given X 1. 01:00 Patient left the ED. jb4 Signatures: Dispatcher [employer] EDMS Sonal Baker RN RN Kobi Yo PA PA jr8 Rafael Velarde, JAMES CREDIT PROFESSIONAL pm1 Blaise Rolon RN RN jb4 Raven eNlson RN RN ea
[2020-04-05 00:33] LABS: Blood Morphology Comment NOTED (NOT SEEN); Platelet Estimate DECR; White Blood Cell Scan OK (OK)
[2020-04-05 00:34] LABS: Ovalocytes 3+
[2020-04-05 01:05] VITALS: TEMP 98
[2020-04-05 01:06] VITALS: BP 144/60; O2SAT 95
[2020-04-05] MEDS ORDERED: MORPHINE 4 MG/ML SYR ONE (01:10)
--- NOTE | 2020-04-05 08:16 | RAD REPORT ---
EXAM DESCRIPTION: RAD - Chest Single View - 04/04/2020 11:16 pm CLINICAL HISTORY: fall COMPARISON: Two view chest December 2019 TECHNIQUE: AP portable chest image was obtained 04/04/2020 11:16 pm . FINDINGS: Right lung field is clear. Trachea is midline. Left base pleural effusion and atelectasis are present worse than on the comparison study. Upper left lung field is clear of an acute process. P ulmonary contusion is unlikely. No gross rib deformity seen on limited ribcage assessment. Loop recor leonidas overlies the left side of the heart. Heart size is normal. Pulmonary vasculature within normal li mits for portable imaging. Sternotomy wires are in place. No pneumothorax. No acute bony abnormality seen. No acute aortic findings suspected. IMPRESSION: Moderate size left pleural effusion with left lung base atelectasis suspected to predate the patient fall history. No pneumothorax. No gross rib deformity seen on limited ribcage assessment.
--- NOTE | 2020-04-05 09:59 | EKG ---
Test Date: 2020-04-04 Test Time: 23:14:00 Waste/Materials Exchange Specialist: SAMINA MEASUREMENT RESULTS: Intervals: Rate: 75 SD: 198 QRSD: 146 QT: 430 QTc: 480 [place]: P: 59 SD: 198 QRS: -21 T: 113 INTERPRETIVE STATEMENTS: Normal sinus rhythm with sinus arrhythmia Left bundle branch block Abnormal ECG Compared to ECG 01/18/2020 15:24:27 Left bundle-branch block now present Myocardial infarct finding no longer present T-wave abnormality no longer present Possible ischemia no longer present Electronically Signed On 04-05-20 09:59:24 KETTLE CLEANER by Sean Ponce
== END 2020-04-05 01:00 | disposition home or self-care (01) ==
LOC: ER 18:44
DX: S32.019A Unspecified fracture of first lumbar vertebra, initial encounter for closed fracture (principal); S09.90XA Unspecified injury of head, initial encounter; F17.210 Nicotine dependence, cigarettes, uncomplicated; W01.0XXA Fall on same level from slipping, tripping and stumbling without subsequent striking against object, initial encounter
CPT/HCPCS: 93005; 85025; 80048; 36415; 83735; 85610; 80076; 84484; 83880; 72131; 70450; 72125; 71045; 72170; 96375; 96374; 99285; J2405; G0390

== ENCOUNTER 2020-04-17 22:00 | Observation (INO) | payer OTHER ==
--- OUTSIDE RECORDS SUMMARY | 2020-04-17 22:16 | XMS REPORT | Continuity of Care Document ---
:1940 Author Organization [facility] t Address [address] [place] [address] Dr. Chaves [address] [place] [id number] Care Team Providers Name Role Phone Odilia MINER Primary Care Physician Sadie Crain DO Attending Clinician Viviana RN Attending Clinician Unavailable Gato RN Attending Clinician Unavailable ASHLEY Attending Clinician Unavailable ASHLEY Admitting Clinician Unavailable Payers Payer Name Policy Type Policy Effective Date Expiration Date Sour ce Number AETNA MEDICAREAETNA [id number] 2013 [place] MEDICARE HMO/PPO 00:00:00 Methodis t [id number] -PresentHMO Problems This patient has no known problems. Allergies, Adverse Reactions, Alerts This patient has no known allergies or adverse reactions. Social History Social Habit Start Date Stop Date Quantity Comments Source Sex Assigned At Jeffer[place] e[facility] Restoration[facility] Smoking Status Start Date Stop Date Source [...] Heart rate 2019-10-07 12:25:00 70 /min Tyler Pagan Systolic blood 2019-10-07 12:18:00 156 mm[Hg] [place] [facility] pressure Diastolic blood 2019-10-07 12:18:00 74 mm[Hg] [place] [facility] pressure Respiratory rate 2019-10-07 12:18:00 16 /min [...] Performed POC GLUCOSE 2019-10-07 10:56:00 [facility] US NEEDLE BIOPSY 2019-10-07 10:42:40 Hal Crain ethodist SURGICAL PATHOLOGY REQUEST 2019-10-07 09:44:00 Hal Crain PROTHROMBIN TIME WITH INR 2019-10-05 13:44:00 Hal Crain PARTIAL THROMBOPLASTIN 2019-10-05 13:44:00 Hal Crain TIME (PTT) HC COMPLETE BLD COUNT 2019-10-05 13:44:00 Hal Crain W/AUTO DIFF BASIC METABOLIC PANEL 2019-10-05 13:44:00 Hal Crain ESTIMATED GFR 2019-10-05 13:44:00 [facility] Planned Activity Planned Date Details Comments Source Future Scheduled 2019-09-19 INFLUENZA VACCINE [place] [facility] Test 00:00:00 [code = INFLUENZA VACCINE] Future Scheduled 2003-10-20 65+ PNEUMOCOCCAL [place] [facility] Test 00:00:00 VACCINE (1 of 1 - PPSV23) [code = 65+ PNEUMOCOCCAL VACCINE (1 of 1 - PPSV23)] Future Scheduled 1988 SHINGLES VACCINES (#1) [place] [facility] Test 00:00:00 [code = SHINGLES VACCINES (#1)] Future Scheduled 1954 COVID-19 VACCINE (1 of [place] [facility] Test 00:00:00 2) [code = COVID-19 VACCINE (1 of 2)] Future Scheduled 1948 DIABETES: RETINAL EYE [place] [facility] Test 00:00:00 EXAM [code = DIABETES: RETINAL EYE EXAM] Future Scheduled 1948 DIABETIC FOOT EXAM [place] [facility] Test 00:00:00 [code = DIABETIC FOOT EXAM] Future Scheduled 1950 URINE MICROALBUMIN [place] [facility] Test 00:00:00 [code = URINE MICROALBUMIN] Encounters Start End Encounter Admission Attending Care Care Encounter Source Date/Time Date/Time Type Type Clinicians Facility Department ID 2019-10-07 2019-10-07 Outpatient [facility] [id number] [place] 00:00:00 00:00:[address] HAL [address] 2019-10-05 2019-10-05 Outpatient [facility] [id number] [place] 00:00:00 00:00:00 HAL 621 Method i 2016-03-27 2016-03-27 Outpatient [facility] [id number] [place] 00:00:00 00:00:00 DISHA 508 Method i 2015-11-16 2015-11-16 Outpatient [facility] [id number] [id number] [place] 00:00:00 00:00:00 DISHA 906 Method i 2015-11-11 2015-11-11 Outpatient [facility] 012 [id number] [place] 00:00:00 00:00:00 DISHA [address] Results Test Description Test Time Test Comments Results Result Comments Source Surgical pathology request 2019-10-09 19:58:17 Test Item Value Reference Range Interpretation Comme nts Case number (test code = 1576727) [id number] Surgical pathology report (test code = See link below for PDF Lab R eport 2251) Result status (test code = 0583627) This is Final Report for [id number] [place] [facility] [id number] 11:14:23Hm Interface, Radiology Results 10/07/2019 11:17 AM CDTProcedure:CT-guided left renal biop syPerforming Radiologist:Alton Lara MDAssistants:NoneAnesthesia Type: Intraservice moderate sedation was administered [...] above report.Impression:Successful, uncomplicated ultrasound- guided left renal biopsy[facility]-[id number] [facility] [id number] 10:59:30 Test Item Value Reference Range Interpretation Comments POC glucose (test code 157 mg/dL 65-99 H Opera tor Name: [facility] = [id number]) ElaineDevice ID : [id number] Lab Interpretation Abnormal (test code = 47913-5) Tyler Pagan
[2020-04-17] MEDS ORDERED: TRAZODONE 50 MG TABLET PO PRN (22:27)
[2020-04-17] MEDS ORDERED: ENOXAPARIN 40 MG/0.4 ML SQ SCH (23:00)
[2020-04-17] MEDS ORDERED: ENOXAPARIN 40 MG/0.4 ML SQ ONE (23:00)
[2020-04-18 00:26] VITALS: BMI 25.4
[2020-04-18] MEDS: ACETAMINOPHEN 325 MG TABLET PO PRN ×2 (00:58→09:04)
[2020-04-18 02:12] LABS: CKMB Creatine Kinase MB 3.9 ng/mL (0.3-3.6); Troponin I 0.02 ng/mL (0.0-0.045)
[2020-04-18 05:58] LABS: Absolute Lymphocytes (CBC) 1.6 K/uL (0.7-4.9); Basophils % 0.3 % (0-1.3); Hematocrit 32.7 % (39.6-49.0); Lymphocytes % 35.9 % (15.3-44.8); MPV 11.8 fL (7.6-11.3); RBC Red Blood Cell Count 3.53 M/uL (4.33-5.43)
[2020-04-18 06:16] LABS: ALT/SGPT 22 U/L (12-78); AST/SGOT 20 U/L (15-37); Alkaline Phosphatase 97 U/L (45-117); BUN Blood Urea Nitrogen 15 mg/dL (7-18); Bicarbonate 34 mmol/L (21-32); Bilirubin Direct 0.2 mg/dL (0-0.2); Bilirubin Total 0.5 mg/dL (0.2-1.0); Glucose Level 164 mg/dL (74-106); HDL Cholesterol 40 mg/dL (40-60); LDL Cholesterol, Calculated 28 (<130); Magnesium 1.6 mg/dL (1.8-2.4); NT PRO-BNP 13644 pg/mL (<450); Potassium 4.2 mmol/L (3.5-5.1); Protein, Total 5.5 g/dL (6.4-8.2); Sodium Level 143 mmol/L (136-145)
[2020-04-18] MEDS ORDERED: HYDROCODONE/APAP 10/325 TAB PO SCH (07:00)
[2020-04-18] MEDS ORDERED: GLIPIZIDE S.A. 5 MG TAB PO SCH (08:00)
--- NOTE | 2020-04-18 08:06 | RAD REPORT ---
EXAM DESCRIPTION: RAD - Chest Pa And Lat (2 Views) - 04/18/2020 5:54 am CLINICAL HISTORY: CHF COMPARISON: Portable April 04 TECHNIQUE: Frontal and lateral views of the chest were obtained. FINDINGS: The lungs are underinflated. Chronic interstitial pattern is present. Interstitial pattern is accentuated which could be low lung volume artifact, interstitial edema, infiltrate or a combinat ion. Heart size is normal and central vasculature is within normal limits. Moderate left pleural e ffusion is unchanged. Right pleural effusion is new or enlarged from April 04. No acute bony findi ng noted. No aortic abnormality. IMPRESSION: Increased interstitial opacification from shallow inspiration artifact, edema, interstit ial infiltrate or a combination. Moderate left pleural effusion, stable. Small right pleural effusion, new or enlarged.
[2020-04-18] MEDS ORDERED: VALSARTAN 40 MG TAB PO SCH (09:00)
[2020-04-18] MEDS ORDERED: carvediloL 12.5 MG TAB PO SCH (09:00)
[2020-04-18] MEDS ORDERED: FENOFIBRATE 160 MG TAB PO SCH (09:00)
[2020-04-18] MEDS: METFORMIN HCL 500 MG TAB PO SCH ×2 (09:00→09:05)
[2020-04-18] MEDS ORDERED: ASPIRIN 81 MG CHEWABLE TABLET PO SCH (09:00)
[2020-04-18] MEDS ORDERED: ATORVASTATIN 40 MG TAB PO SCH (09:00)
[2020-04-18] MEDS ORDERED: INFLUENZA VACCINE (for 3y+) 0.5 ML DOSE IMVAC ONE (09:00)
[2020-04-18] MEDS ORDERED: FUROSEMIDE 40 MG/4 ML VIAL IV SCH (09:00)
[2020-04-18 09:07] VITALS: BP 136/66
[2020-04-18] MEDS ORDERED: HYDROCODONE/APAP 10/325 TAB PO PRN (09:16)
[2020-04-18 09:37] LABS: Blood Morphology Comment NOTED (NOT SEEN); Ovalocytes 1+; Platelet Estimate DECR; Platelets, Giant FEW; White Blood Cell Scan OK (OK)
[2020-04-18 09:46] VITALS: TEMP 97.3
[2020-04-18 10:13] LABS: CKMB Creatine Kinase MB 3.5 ng/mL (0.3-3.6); Troponin I 0.02 ng/mL (0.0-0.045)
--- NOTE | 2020-04-18 12:36 | P.SSS ---
Patient History Date of Service: 04/18/20 Reason for admission: DYSPNEA History of Present Illness: MR. VICTORIA IS A CARDIAC PATIENT WITH CABG-2, CHF AND GOES TO DR. AARON. HE DOES NOT EAT BAD. HE WATCHES HIS SALT HE SAYS. HE COMES WITH DYSPNEA AT [facility], I ASKED THEM TO GIVE HIM DOSE OF LASIX IV THEY DID NOT. I SAW HIM THIS AM. HE IS EATING HIS BF WITHOUT DYSPNEA, WANTS TO GO HOME. HE HAD NO CHEST PAIN. DR. AARON WILL SEE HIM SOON. Allergies No Known Allergies Allergy (Unverified 01/18/20 14:56) Home medications list reviewed: Yes Home Medications: Ascorbic Acid [Vitamin C] 1,000 mg PO DAILY 04/18/20 Aspirin 81 mg PO DAILY 04/18/20 Atorvastatin Calcium 40 mg PO DAILY 04/18/20 Carvedilol [Coreg] 12.5 mg PO BID 04/18/20 Fenofibrate [Tricor*] 145 mg PO DAILY 04/18/20 Furosemide 40 mg PO BID #180 04/18/20 Glipizide [Glipizide ER] 10 mg PO DAILY 04/18/20 Hydrocodone 10/APAP 325 [[place] 10/325*] 0.5 tab PO Q4H PRN tab 04/18/20 Hydrocodone Bit/Acetaminophen [Hydrocodon-Acetaminophn 10-325] 0.5 mg PO PRN 04/18/20 Levothyroxine Sodium [Levothyroxine] 100 mcg PO DAILY 04/18/20 Metformin HCl [Metformin ER Gastric] 1,000 mg PO BID 04/18/20 Potassium Chloride [Klor-Con 10] 10 meq PO DAILY #90 tablet.er 04/18/20 Telmisartan 20 mg PO DAILY 04/18/20 - Past Medical/Surgical History Has patient received pneumonia vaccine in the past: Yes Diabetic: Yes -: DM,ON CHOLETROL MED -: HTN HYPERTHYROID DOUBLE BYPAS SURGERY - Social History Smoking Status: Light Tobacco smoker (1-9 cigarettes/day) Alcohol use: No CD- Drugs: No Caffeine use: Yes Place of Residence: Home Review of Systems 10-point ROS is otherwise unremarkable Physical Examination - Vital Signs Temperature: 97.3 F Blood Pressure: 136/66 Pulse: 66 Respirations: 20 Pulse Ox (%): 96 - Physical Exam General: Alert, In no apparent distress HEENT: Atraumatic, PERRLA, Mucous membr. moist/pink, EOMI, Sclerae nonicteric Neck: Supple, 2+ carotid pulse no bruit, No LAD, Without JVD or thyroid abnormality Respiratory: Clear to auscultation bilaterally, Normal air movement Cardiovascular: Regular rate/rhythm, Normal S1 S2 Gastrointestinal: Normal bowel sounds, No tenderness Musculoskeletal: No tenderness Integumentary: No rashes Neurological: Normal gait, Normal speech, Normal strength at 5/5 x4 extr, Normal tone, Normal affect Lymphatics: No axilla or inguinal lymphadenopathy - Studies Laboratory Data (last 24 hrs) 04/18/20 09:37: Troponin I 0.02 04/18/20 05:33: Sodium 143, Potassium 4.2, BUN 15, Creatinine 0.78, Glucose 164 H, Magnesium 1.6 L, Total Bilirubin 0.5, AST 20, ALT 22, Alkaline Phosphatase 97, Triglycerides 138, Cholesterol 96, HDL Cholesterol 40, Cholesterol/HDL Ratio 2.40 04/18/20 05:33: WBC 4.50, Hgb 10.8 L, Hct 32.7 L, Plt Count 39 L* D 04/18/20 01:46: Troponin I 0.02 - Diagnosis (Problem(s)) (1) Diastolic CHF, acute on chronic Current Visit: Yes Status: Acute Plan: MR. VICTORIA IS STABLE. I RAISED HIS LASIX TO BID. KCL ADDED. HE WILL DO ECHO WITH DR. AARON AND ST TEST IF NEED. FU ON CXR FOR EFFUSION. (2) MDS (myelodysplastic syndrome) Current Visit: Yes Status: Chronic Plan: HE GOES TO DR. TELLES FOR MDS. (3) CAD (coronary artery disease) of artery bypass graft Current Visit: Yes Status: Chronic Qualifiers: [place] vs. transplanted heart: [place] heart - Disposition Disposition: ROUTINE DISCHARGE Condition: FAIR
--- NOTE | 2020-04-18 17:08 | EKG ---
Test Date: 2020-04-18 Test Time: 09:56:49 Sonar Technician: JENNIE MEASUREMENT RESULTS: Intervals: Rate: 68 FL: 200 QRSD: 142 QT: 436 QTc: 463 [place]: P: 21 FL: 200 QRS: -25 T: 132 INTERPRETIVE STATEMENTS: Sinus rhythm with occasional and consecutive premature ventricular complexes Left bundle branch block Abnormal ECG Compared to ECG 04/04/2020 23:14:00 Ventricular premature complex(es) now present Sinus arrhythmia no longer present Electronically Signed On 04-18-20 17:05:57 SMALL KICK PRESS OPERATOR by Sean Ponce
[2020-04-19] MEDS ORDERED: LEVOTHYROXINE SOD 0.1 MG TAB PO SCH (06:30)
--- NOTE | 2020-04-19 07:04 | CON ---
Date of Consultation: 04/18/2020 Reason For Consultation: Congestive heart failure exacerbation. History Of Present Illness: Mr. Almendarez is an 79-year-old male, who has had a history of CABG in the past. A catheterization that I did in January 2020 showed a patent KU to the LAD, and a patent R CA graft to the RCA, completely occluded. Also has a history of dyslipidemia, diabetes, h ypothyroidism, came in with congestive heart failure exacerbation. Echocardiogram is pending. Denie d chest pain, nausea, vomiting, diaphoresis. He had PND, orthopnea, pedal edema. Denied palpitation . Denied any syncope. Denied any fever or chills. Past Medical History: As stated above. Allergies: NONE. Review of Systems: Negative. Social History: Negative. Family History: Noncontributory. Medications: At home include aspirin, Coreg, Lipitor, Tricor, Lasix, glipizide, metformin, Synthroid , and telmisartan. Physical Examination: General: He is pleasant. Vital Signs: Stable. He was afebrile. HEENT: Negative. Neck: Supple without any bruit, lymphadenopathy, JVD, or thyromegaly. Chest: Reveals some rales at the bases. Cardiac: Revealed a regular rhythm and rate. No murmurs, gallops, or rubs. Abdomen: Benign. Extremities: Revealed no clubbing or cyanosis. He has some peripheral edema. Skin: Dry and intact. Neurologic: He was nonfocal. Pulses were present distally bilaterally. Diagnostic Data: Chest x-ray showed bilateral pleural effusion, left greater than right. He had a p latelet count of 39,000. His troponin was negative. BNP was 15,644. Impression: 1.Acute on chronic diastolic congestive heart failure. Echocardiogram is pending. The patient has been given appropriate therapy with Lasix. He is also on AYALA inhibitor, telmisartan. He is on carve dilol. I agree with present regimen. No changes in therapy. Diuresed. He can go home if okay with Dr. Hartley. I will see him in the office in the near future. 2.Elevated BNP secondary to congestive heart failure. 3.Bilateral pleural effusion. 4.Thrombocytopenia. I will leave that issue to Dr. Hartley. 5.His other problems including a diabetes, dyslipidemia, hypothyroidism, coronary artery disease see m to be stable at this point. His last catheterization was only about 2 months ago and that showed a patent KU to the LAD and patent RCA graft to RCA. No need for any further coronary int ervention or stress test at this point. We will see what the echocardiogram shows. He can go home n ow. See in the near future in the office. . FRANKY/TABITHA Voice ID: [id number] Report ID: [id number]
== END 2020-04-18 14:53 | disposition home or self-care (01) ==
LOC: 2ND 22:00
PROVIDERS: ADMIT Internal Medicine; ATTEND Internal Medicine
DX: I11.0 Hypertensive heart disease with heart failure (principal); I50.33 Acute on chronic diastolic (congestive) heart failure; E11.9 Type 2 diabetes mellitus without complications; Z95.1 Presence of aortocoronary bypass graft; F17.210 Nicotine dependence, cigarettes, uncomplicated; D46.9 Myelodysplastic syndrome, unspecified; I25.10 Atherosclerotic heart disease of native coronary artery without angina pectoris; E78.5 Hyperlipidemia, unspecified; E03.9 Hypothyroidism, unspecified; Z79.84 Long term (current) use of oral hypoglycemic drugs; Z79.82 Long term (current) use of aspirin; R94.31 Abnormal electrocardiogram [ECG] [EKG]; D69.6 Thrombocytopenia, unspecified
CPT/HCPCS: 36415; 71046; 80048; 80061; 80076; 82550; 82553; 83735; 83880; 84484; 85025; 93005; G0103; G0378; G0379; J1650; J1940

== ENCOUNTER 2020-06-20 15:01 | Emergency (ER) | payer OTHER ==
--- OUTSIDE RECORDS SUMMARY | 2020-06-20 15:03 | XMS REPORT | Continuity of Care Document ---
:1940 Author Organization [facility] t Address [address] [place] [address] [address]. [address] [place] [address] Care Team Providers Name Role Phone SAMIRA Attending Clinician Unavailable ASHLEY Attending Clinician Unavailable ASHLEY Admitting Clinician Unavailable Problems This patient has no known problems. Allergies, Adverse Reactions, Alerts This patient has no known allergies or adverse reactions. Medications This patient has no known medications. Procedures This patient has no known procedures. Encounters Start End Encounter Admission Attending Care Care Encounter Source Date/Time Date/Time Type Type Clinicians Facility Department ID 2019-10-07 2019-10-07 Outpatient [facility] [id number] [place] 00:00:00 00:00:00 HAL [address] 2019-10-05 2019-10-05 Outpatient [facility] [id number] [place] 00:00:00 00:00:00 HAL [address] 2016-03-27 2016-03-27 Outpatient [facility] [id number] [place] 00:00:00 00:00:00 DISHA [address] 2015-11-16 2015-11-16 Outpatient [facility] [id number] [place] 00:00:00 00:00:00 DISHA [address] 2015-11-11 2015-11-11 Outpatient [facility] [id number] [place] 00:00:00 00:00:00 DISHA [address] Results This patient has no known results.
[2020-06-20 15:56] LABS: Absolute Lymphocytes (CBC) 1.3 K/uL (0.7-4.9); Basophils % 0.2 % (0-1.3); Hematocrit 30.8 % (39.6-49.0); Lymphocytes % 27.8 % (15.3-44.8); MPV 11.3 fL (7.6-11.3); Protime INR 1.12
--- NOTE | 2020-06-20 16:00 | RAD REPORT ---
EXAM DESCRIPTION: CT - Head Brain Wo Cont - 06/20/2020 3:45 pm CLINICAL HISTORY: SYNCOPE COMPARISON: Head C Spine Mpr Wo Con dated 04/04/2020 TECHNIQUE: Axial 5 mm thick images of the head were obtained without IV contrast. All CT scans are performed using dose optimization technique as appropriate and may include automated exposure control or mA/KV adjustment according to patient size. FINDINGS: No intracranial hemorrhage, mass, edema or shift of mid-line structures. No acute infarcti on changes seen. No abnormal extra-axial fluid collections. Atrophy and chronic ischemic changes a mi [id number]. Ventricles are in proportion to the amount of volume loss. Mastoid air cells and visualized portions of the paranasal sinuses are clear. No acute bony findings. No enlargement sella turcica or supra sella abnormality. Focal density in the sella is probably estuardo l pituitary tissue. This does not extend beyond the confines of the sella and is not believed to be o f either short-term or long-term significance. IMPRESSION: Negative non-contrast CT head examination for acute finding.
[2020-06-20 16:02] LABS: ALT/SGPT 19 U/L (12-78); AST/SGOT 17 U/L (15-37); Albumin 3.2 g/dL (3.4-5.0); Alkaline Phosphatase 56 U/L (45-117); BUN Blood Urea Nitrogen 28 mg/dL (7-18); Bicarbonate 28 mmol/L (21-32); Bilirubin Direct 0.2 mg/dL (0-0.2); Bilirubin Total 0.5 mg/dL (0.2-1.0); Glucose Level 99 mg/dL (74-106); Magnesium 2.1 mg/dL (1.8-2.4); NT PRO-BNP 4864 pg/mL (<450); Potassium 4.4 mmol/L (3.5-5.1); Sodium Level 142 mmol/L (136-145); Troponin (Emerg Dept Use Only) < 0.02 ng/mL (0.0-0.045)
--- NOTE | 2020-06-20 16:39 | RAD REPORT ---
EXAM DESCRIPTION: RAD - Chest Single View - 06/20/2020 4:00 pm CLINICAL HISTORY: syncope, shortness of breath COMPARISON: April 18, 2020 TECHNIQUE: AP portable chest image was obtained 06/20/2020 4:00 pm . FINDINGS: Left base pleural effusion diminished from the comparison study. Infiltrate and/ or atelec tasis at the left base has improved. Cardiac silhouette is enlarged. Patient may have a hiatal hernia . Mild vascular engorgement is seen. No significant change to the interstitial pattern. Sternotomy wi res are in place. Trachea is midline. No pneumothorax. No acute bony abnormality seen. No acute aorti c findings suspected. IMPRESSION: Left base pleural effusion with infiltrate and/ or atelectasis showing improvement from April 18 imaging.
[2020-06-20] MEDS ORDERED: NA CHLORIDE 0.9% 500 ML ONE (17:39)
--- NOTE | 2020-06-20 21:07 | ER ---
Nurse's Notes [facility] Name: Harry Almendarez Age: 79 yrs Sex: Male : 1940 Arrival Date: 06/20/2020 Time: 15:13 Bed 4 Private MD: Diagnosis: Syncope and collapse;Dehydration Presentation: 06/20 15:13 Chief complaint: EMS states: was at the orthopedist office for his back and all of a sv sudden they said it appeared that the pt had a syncopal episode. They thought his BS was low and they gave him a piece of candy. On EMS arrival pt was flaccid in the bed, BS-101 vitals WNL with HR in the 50s. Pt became more responsive and they took a piece of gum and nuts out of his mouth. Pt was incontinent of urine. Coronavirus screen: Client denies travel out of the [place] in the last 14 days. At this time, the client does not indicate any symptoms associated with coronavirus-19. Ebola Screen: No symptoms or risks identified at this time. Initial Sepsis Screen: Does the patient meet any 2 criteria? No. Patient's initial sepsis screen is negative. Does the patient have a suspected source of infection? No. Patient's initial sepsis screen is negative. Risk Assessment: Do you want to hurt yourself or someone else? Patient reports no desire to harm self or others. Onset of symptoms was June 20, 2020. 15:13 Method Of Arrival: EMS: [facility] sv 15:13 Acuity: QUINTIN 2 sv Triage Assessment: 15:18 General: Appears in no apparent distress. comfortable, well groomed, well developed, sv Behavior is calm, cooperative, appropriate for age. Pain: Denies pain. Neuro: Level of Consciousness is awake, alert, obeys commands, Oriented to person, place, time, situation, Moves all extremities. Full function Speech is normal, Facial symmetry appears normal. Cardiovascular: Rhythm is sinus bradycardia. Respiratory: Airway is patent Respiratory effort is even, unlabored, Respiratory pattern is regular, symmetrical. Derm: Skin is intact, Skin is pink, warm \T\ dry. Musculoskeletal: Range of motion: intact in all extremities. Historical: - Allergies: 15:16 No Known Allergies; sv - Immunization history:: Adult Immunizations. - Social history:: Smoking status: . Screenin:17 Abuse screen: Denies threats or abuse. Denies injuries from another. Nutritional sv screening: No deficits noted. Tuberculosis screening: No symptoms or risk factors identified. Fall Risk None identified. Assessment: 16:15 Reassessment: Patient appears in no apparent distress at this time. No changes from sv previously documented assessment. Patient and/or family updated on plan of care and expected duration. Pain level reassessed. Patient is alert, oriented x 3, equal unlabored respirations, skin warm/dry/pink. 17:23 Reassessment: Patient appears in no apparent distress at this time. No changes from sv previously documented assessment. Patient and/or family updated on plan of care and expected duration. Pain level reassessed. Patient is alert, oriented x 3, equal unlabored respirations, skin warm/dry/pink. 18:30 Reassessment: Patient appears in no apparent distress at this time. Patient and/or hb family updated on plan of care and expected duration. Pain level reassessed. Patient is alert, oriented x 3, equal unlabored respirations, skin warm/dry/pink. 20:47 Reassessment: Patient appears in no apparent distress at this time. Patient and/or mg2 family updated on plan of care and expected duration. Pain level reassessed. Patient is alert, oriented x 3, equal unlabored respirations, skin warm/dry/pink. Vital Signs: 15:13 BP 117 / 50; Pulse 52; Resp 13; Temp 97.7(O); Pulse Ox 98% on R/A; Pain 0/10; sv 15:15 BP 121 / 59; Pulse 51; Resp 17; Pulse Ox 97% ; sv 16:31 BP 133 / 53; Pulse 56; Resp 14; Pulse Ox 97% on R/A; sv 17:14 BP 143 / 66 LA Supine (auto/reg); Pulse 59; sv 17:16 BP 146 / 60 LA Sitting (auto/reg); Pulse 58; sv 17:18 BP 112 / 65 LA Standing (auto/reg); Pulse 68; sv 19:01 BP 150 / 58; Pulse 62; Resp 21; Pulse Ox 98% on R/A; hb 20:46 BP 142 / 60; Pulse 63; Resp 18; Pulse Ox 98% on R/A; mg2 21:20 BP 140 / 60; Pulse 65; Resp 17; Pulse Ox 98% on R/A; mg2 ED Course: 15:13 Patient arrived in ED. sv 15:13 Radha Miller, ANGELLA is Primary Nurse. sv 15:16 Triage completed. sv 15:17 Arm band placed on. sv 15:17 Patient has correct armband on for positive identification. Bed in low position. Call sv light in reach. Side rails up X2. Adult w/ patient. director of purchasing on. Pulse ox on. NIBP on. Door closed. Head of bed elevated. 15:17 Maintain EMS IV. Dressing intact. Site clean \T\ dry. Gauge \T\ site: 20G R AC. sv 15:18 Rafael Velarde NP is PHCP. pm1 15:18 Mari Goodman MD is Attending Physician. pm1 15:45 CT Head Brain wo Cont In Process Unspecified. EDMS 16:00 XRAY Chest (1 view) In Process Unspecified. EDMS 16:21 Basic Metabolic Panel Sent. sv 16:21 CBC with Diff Sent. sv 16:21 LFT's Sent. sv 19:16 Primary Nurse role handed off by Radha Miller RN mw2 20:38 Curtis Mcdowell, ANGELLA is Primary Nurse. mg2 21:19 No provider procedures requiring assistance completed. IV discontinued, intact, mg2 bleeding controlled, No redness/swelling at site. Pressure dressing applied. Administered Medications: 17:22 Drug: NS 0.9% 500 ml Route: IV; Rate: bolus; Site: right antecubital; sv Outcome: 21:07 Discharge ordered by MD. pm1 21:20 Discharged to home via wheelchair, with family. mg2 21:20 Condition: stable 21:20 Discharge instructions given to patient, family, Instructed on discharge instructions, follow up and referral plans. Demonstrated understanding of instructions, follow-up care. 21:21 Patient left the ED. mg2 Signatures: Dispatcher [employer] EDMS Radha Miller RN RN Rafael Velarde NP RECREATION SUPERVISOR pm1 Aimee De La Garza RN RN hb [place], MyKena mw2 Curtis Mcdowell RN RN mg2
--- NOTE | 2020-06-20 21:08 | EDPHYS ---
Physician Documentation Formerly [facility] Name: Harry Almendarez Age: 79 yrs Sex: Male : 1940 Arrival Date: 06/20/2020 Time: 15:13 Bed 4 Private MD: ED Physician Mari Goodman HPI: 06/20 15:31 This 79 yrs old Male presents to ER via EMS with complaints of Syncope. pm1 15:31 The patient has experienced syncope. Onset: The symptoms/episode began/occurred just pm1 prior to arrival. Duration: This was a single episode. Context: the episode(s) was witnessed, by family, , Orthopedic MD, occurred Dr. Cho, occurred while the patient was sitting, Just prior to the episode the patient experienced no apparent symptoms. Associated injury: The patient did not suffer any apparent associated injury. Associated signs and symptoms: The patient has no apparent associated signs or symptoms, Pertinent negatives: abdominal pain, chest pain, shortness of breath. Current symptoms: Currently, the patient is not experiencing any symptoms, the patient feels back to baseline. Patient was being evaluated by his orthopedic MD reviewing his back imaging when he started to faint. MD and thought that it was his sugar so they gave him some chocolate and he started to improve on EMS arrival. Patient reports that he did not drink his normal amount of fluids and consume the same amount of food due to preoccupation with errands and seeing his MD. Historical: - Allergies: 15:16 No Known Allergies; sv - Immunization history:: Adult Immunizations. - Social history:: Smoking status: . ROS: 15:31 Constitutional: Negative for fever, chills, and weight loss, Eyes: Negative for injury, pm1 pain, redness, and discharge, ENT: Negative for injury, pain, and discharge, Neck: Negative for injury, pain, and swelling, Cardiovascular: Negative for chest pain, palpitations, and edema, Respiratory: Negative for shortness of breath, cough, wheezing, and pleuritic chest pain, Abdomen/GI: Negative for abdominal pain, nausea, vomiting, diarrhea, and constipation, Back: Negative for injury and pain, MS/Extremity: Negative for injury and deformity, Skin: Negative for injury, rash, and discoloration. 15:31 Neuro: Positive for syncope, Negative for altered mental status, dizziness, headache, numbness, tingling, weakness. Exam: 15:31 Abdomen/GI: Exam negative for Inspection: abdomen appears normal, Palpation: abdomen is pm1 soft and non-tender, in all quadrants. 15:31 Constitutional: This is a well developed, well nourished patient who is awake, alert, and in no acute distress. Head/Face: Normocephalic, atraumatic. 15:31 Respiratory: Lungs have equal breath sounds bilaterally, clear to auscultation and percussion. No rales, rhonchi or wheezes noted. No increased work of breathing, no retractions or nasal flaring. 15:31 Back: No spinal tenderness. No costovertebral tenderness. Full range of motion. Skin: Warm, dry with normal turgor. Normal color with no rashes, no lesions, and no evidence of cellulitis. MS/ Extremity: Pulses equal, no cyanosis. Neurovascular intact. Full, normal range of motion. 15:31 Cardiovascular: Rate: bradycardic, actual rate is 56 bpm, Rhythm: regular, Pulses: no pulse deficits are appreciated, Heart sounds: normal. 15:31 Abdomen/GI: Inspection: abdomen appears normal, Palpation: abdomen is soft and non-tender, in all quadrants. 15:31 Neuro: Exam negative for acute changes, Orientation: is normal, Mentation: is normal, Motor: is normal, moves all fours. Vital Signs: 15:13 BP 117 / 50; Pulse 52; Resp 13; Temp 97.7(O); Pulse Ox 98% on R/A; Pain 0/10; sv 15:15 BP 121 / 59; Pulse 51; Resp 17; Pulse Ox 97% ; sv 16:31 BP 133 / 53; Pulse 56; Resp 14; Pulse Ox 97% on R/A; sv 17:14 BP 143 / 66 LA Supine (auto/reg); Pulse 59; sv 17:16 BP 146 / 60 LA Sitting (auto/reg); Pulse 58; sv 17:18 BP 112 / 65 LA Standing (auto/reg); Pulse 68; sv 19:01 BP 150 / 58; Pulse 62; Resp 21; Pulse Ox 98% on R/A; hb 20:46 BP 142 / 60; Pulse 63; Resp 18; Pulse Ox 98% on R/A; mg2 21:20 BP 140 / 60; Pulse 65; Resp 17; Pulse Ox 98% on R/A; mg2 MDM: 15:18 Patient medically screened. pm1 18:57 Data reviewed: vital signs. Data interpreted: Pulse oximetry: on room air is 97 %. pm1 Interpretation: normal. 19:51 ED course: Patient does not want to stay in the hospital but agreed to second 4 hour pm1 troponin. 21:06 Counseling: I had a detailed discussion with the patient and/or guardian regarding: the pm1 historical points, exam findings, and any diagnostic results supporting the discharge/admit diagnosis, lab results, radiology results, the need for outpatient follow up, to return to the emergency department if symptoms worsen or persist or if there are any questions or concerns that arise at home. 06/20 15:30 Order name: Basic Metabolic Panel pm1 06/20 15:30 Order name: CBC with Diff pm1 06/20 15:30 Order name: LFT's pm1 06/20 15:30 Order name: Magnesium; Complete Time: 16:05 pm1 06/20 15:30 Order name: NT PRO-BNP; Complete Time: 16:05 pm1 06/20 15:30 Order name: PT-INR; Complete Time: 16:05 pm1 06/20 15:30 Order name: CT Head Brain wo Cont; Complete Time: 16:05 pm1 06/20 15:30 Order name: Troponin (emerg Dept Use Only); Complete Time: 16:05 pm1 06/20 15:30 Order name: XRAY Chest (1 view); Complete Time: 16:47 pm1 06/20 15:30 Order name: Basic Metabolic Panel; Complete Time: 16:05 EDMS 06/20 15:30 Order name: CBC with Automated Diff; Complete Time: 16:38 EDMS 06/20 15:30 Order name: Liver (Hepatic) Function; Complete Time: 16:05 EDMS 06/20 17:06 Order name: Glucose, Ancillary Testing; Complete Time: 17:25 EDMS 06/20 19:39 Order name: Troponin (emerg Dept Use Only): Draw at 1999; Complete Time: 00:59 pm1 06/20 15:30 Order name: EKG; Complete Time: 15:31 pm1 06/20 15:30 Order name: Cardiac monitoring; Complete Time: 16:21 pm1 06/20 15:30 Order name: EKG - Nurse/Tech; Complete Time: 20:39 pm1 06/20 15:30 Order name: IV Saline Lock; Complete Time: 16:21 pm06/20 15:30 Order name: Labs collected and sent; Complete Time: 16:21 pm06/20 15:30 Order name: O2 Per Protocol; Complete Time: 16:21 pm06/20 15:30 Order name: O2 Sat Monitoring; Complete Time: 16: pm06/20 16:46 Order name: Orthostatic Blood Pressure; Complete Time: 17:22 pm1 Administered Medications: 17:22 Drug: NS 0.9% 500 ml Route: IV; Rate: bolus; Site: right antecubital; sv Disposition: 06/20/20 21:07 Discharged to Home. Impression: Syncope and collapse, Dehydration. - Condition is Stable. - Discharge Instructions: Dehydration, Elderly, Syncope. - Medication Reconciliation Form, Thank You Letter, Antibiotic Education, Prescription Opioid Use form. - Follow up: Emergency Department; When: As needed; Reason: Worsening of condition. Follow up: Private Physician; When: 2 - 3 days; Reason: Recheck today's complaints, Continuance of care, Re-evaluation by your physician. - Problem is new. - Symptoms have improved. Addendum: 06/23/2020 06:12 Co-signature as Attending Physician, Mari Goodman MD. m a2 Signatures: Dispatcher [employer] Radha To RN RN sv Rafael Velarde, MAP PLOTTER MAP PLOTTER pm1 Mari Goodman MD MD ma2 Curtis Mcdowell RN RN mg2 Corrections: (The following items were deleted from the chart) 06/20 21:21 21:07 06/20/2020 21:07 Discharged to Home. Impression: Syncope and collapse; mg2 Dehydration. Condition is Stable. Forms are Medication Reconciliation Form, Thank You Letter, Antibiotic Education, Prescription Opioid Use. Follow up: Emergency Department; When: As needed; Reason: Worsening of condition. Follow up: Private Physician; When: 2 - 3 days; Reason: Recheck today's complaints, Continuance of care, Re-evaluation by your physician. Problem is new. Symptoms have improved. pm1
[2020-06-20 21:26] VITALS: TEMP 97.7
[2020-06-20 21:34] VITALS: O2SAT 98
[2020-06-20 21:37] VITALS: BP 140/60
--- NOTE | 2020-06-21 11:18 | EKG ---
Test Date: 2020-06-20 Test Time: 20:03:20 [employer] Architect: MEASUREMENT RESULTS: Intervals: Rate: 67 IN: 206 QRSD: 148 QT: 436 QTc: 460 [place]: P: 47 IN: 206 QRS: 94 T: -4 INTERPRETIVE STATEMENTS: Normal sinus rhythm Rightward axis Nonspecific intraventricular block Abnormal ECG Compared to ECG 04/18/2020 09:56:49 Right-axis deviation now present Ventricular premature complex(es) no longer present Left bundle-branch block no longer present Electronically Signed On 06-21-20 11:17:07 CDT by Sean Ponce
== END 2020-06-20 21:21 | disposition home or self-care (01) ==
LOC: ER 15:01
DX: E86.0 Dehydration (principal)
CPT/HCPCS: 93005; 85025; 80048; 36415; 83735; 85610; 82947; 80076; 84484 ×2; 83880; 70450; 71045; 99284; J7040

== ENCOUNTER 2021-02-15 06:22 | Day surgery (SDC) | payer OTHER ==
[2021-02-13 14:12] LABS: Absolute Lymphocytes (CBC) 1.4 K/uL (0.7-4.9); Hematocrit 30.2 % (39.6-49.0); Lymphocytes % 31.3 % (15.3-44.8); MPV 8.9 fL (7.6-11.3); RBC Red Blood Cell Count 3.14 M/uL (4.33-5.43)
[2021-02-13 14:27] LABS: Potassium 4.6 mmol/L (3.5-5.1)
[2021-02-13 16:11] LABS: Platelet Estimate DECR; White Blood Cell Scan OK (OK)
[2021-02-13 16:12] LABS: Blood Morphology Comment NOTED (NOT SEEN); Poikilocytosis 1+
[2021-02-15] MEDS: NA CHLORIDE 0.9% 1,000 ML ONE ×2 (06:50→07:29)
[2021-02-15] MEDS ORDERED: CEFAZOLIN/NS 1gm 1 GM/50 ML BAG ONE (07:00)
[2021-02-15] MEDS ORDERED: FENTANYL CITR 100 MCG/2 ML ONE (07:09)
[2021-02-15] MEDS ORDERED: propofoL 200 MG/20 ML VIAL IV ONE (07:10)
[2021-02-15] MEDS ORDERED: LIDOCAINE 2% MPF 5 ML VIAL ONE (07:10)
[2021-02-15] MEDS ORDERED: BUPIVACAINE 0.5% PF 10 ML VIAL ONE (07:23)
[2021-02-15] MEDS ORDERED: ONDANSETRON 4 MG/2 ML VIAL ONE (08:17)
--- NOTE | 2021-02-15 09:01 | OP ---
Date of Procedure: 02/15/2021 Surgeon: Milan Mccarty MD Actuarial Technician: HILLARY Raphael Preoperative Diagnosis: Generalized lymphadenopathy. Postoperative Diagnosis: Generalized lymphadenopathy. Procedure: Excision of right axillary lymph node. Estimated Blood Loss: Minimal. Specimen: Right axillary enlarged lymph node. Findings: As above, rule out lymphoma. Anesthesia: General. Complications: None. Disposition: The patient tolerated the procedure in stable condition and taken to Recovery in good g eneral condition. Procedure In Detail: The patient was brought to the OR, placed in supine position. General anesthes ia begun. The patient was prepped and draped in the usual sterile fashion. Marcaine 0.25% infiltrat ed locally. A 15 blade was used to make a 4 cm incision in the right axilla along with skin lines, s ubcutaneous tissue divided, and deep to the subcutaneous tissue, axillary fat pad was identified and then vascular pro were used and neurovascular bundle of the lymph node clamped with those vascula r pro and then the large lymph node excised and sent to Pathology. Confirmation obtained. Wound irrigated. Bleeding controlled with cautery. A 3-0 chromic used to approximate the deep subcutaneo us tissue and close the skin. Sterile dressing applied. The patient awakened and taken to Recovery in good condition. Discharge Note: The patient will go to Day Surgery and home when stable. Disposition: Home. Condition: Stable. Discharge Instructions: Resume home medications and diet. Activity as tolerated. No heavy lifting. Remove outer dressing in 2 days. Shower. Keep wound clean and dry. Follow up in my office in 2 w eeks. Call for appointment. Follow up with Dr. Klein in 1 week. Tylenol No.3 one tablet p .o. q.4 p.r.n. pain. /MODL Voice ID: [id number] Report ID: [id number]
[2021-02-15 10:58] VITALS: BP 116/60; TEMP 97.6; O2SAT 92
== END 2021-02-15 10:04 | disposition home or self-care (01) ==
LOC: OR 06:22
PROVIDERS: ATTEND Surgery
PROC: 07B50ZX Excision of Right Axillary Lymphatic, Open Approach, Diagnostic (ICD-10-PCS; principal; 2021-02-15 07:30)
DX: C85.84 Other specified types of non-Hodgkin lymphoma, lymph nodes of axilla and upper limb (principal); Z20.822 Contact with and (suspected) exposure to COVID-19
CPT/HCPCS: 38525; 93005; 85025; 80048; 36415; 86900; 86850; 86901; 82947 ×2; 88305; U0003; J2704; J3010; J0690; J7030; J2405

== ENCOUNTER 2021-06-06 06:30 | Day surgery (SDC) | payer OTHER ==
[2021-06-05 14:54] LABS: Absolute Lymphocytes (CBC) 1.7 K/uL (0.7-4.9); Hematocrit 29.8 % (39.6-49.0); Lymphocytes % 48.5 % (15.3-44.8); MPV 10.7 fL (7.6-11.3); RBC Red Blood Cell Count 3.11 M/uL (4.33-5.43)
--- NOTE | 2021-06-05 14:58 | RAD REPORT ---
EXAM DESCRIPTION: RAD - Chest Pa And Lat (2 Views) - 06/05/2021 2:47 pm CLINICAL HISTORY: Pre op pending heart cath Chest pain. COMPARISON: Chest Single View dated 06/20/2020; Chest Pa And Lat (2 Views) dated 04/18/2020; Chest Singl e View dated 04/04/2020; Chest Pa And Lat (2 Views) dated 01/18/2020 FINDINGS: The lungs are emphysematous. The heart is mildly enlarged with sternotomy wires present. S mall chronic appearing left pleural effusion. Moderate hiatal hernia.
[2021-06-05 15:05] LABS: Potassium 4.4 mmol/L (3.5-5.1)
[2021-06-05 15:10] LABS: Protime INR 1.06
[2021-06-05 21:14] LABS: Anisocytosis 2+; Blood Morphology Comment NOTED (NOT SEEN); Platelet Estimate DECR; Poikilocytosis 1+; Polychromasia SLIGHT
[2021-06-06] MEDS ORDERED: MIDAZOLAM HCL 2 MG/2 ML INJ ONE (06:43)
[2021-06-06] MEDS ORDERED: ATROPINE SULF 1 MG/10 ML SYR IV ONE (06:43)
[2021-06-06] MEDS ORDERED: NITROGLYCERIN 100 MCG/ML SYR (for cath lab use only) IV ONE (06:43)
[2021-06-06] MEDS ORDERED: NA CHLORIDE 0.9% 0 ML ONE (06:43)
[2021-06-06] MEDS ORDERED: FENTANYL CITR 100 MCG/2 ML ONE (06:43)
[2021-06-06] MEDS ORDERED: HEPA 1000U/500MLS 2,000 UNIT/1,000 ML BAG IV ONE (06:51)
[2021-06-06] MEDS ORDERED: LIDOCAINE 1% 20 ML MDV ONE (06:51)
[2021-06-06] MEDS ORDERED: NA CHLORIDE 0.9% 500 ML ONE (06:55)
[2021-06-06 09:41] VITALS: BP 120/58; O2SAT 96
--- NOTE | 2021-06-06 19:06 | OP ---
Surgeon: Sean Ponce MD Mammal Keeper: Ms. Selene Siddiqui. After the Angio-Seal, the patient will be in the hospital for 2 hours of bedrest and I will see him i n the office in about 2 weeks. No change in medical therapy for now. Admitted to my service as an outpatient on 06/05/2021. Reason For Admission: To perform a left heart catheterization, selective coronary arteriogram, left ventriculogram, left ventricular end-diastolic pressure measurement, vein graft injection, and KU i njection. Indication: CHF, CAD, chest pain, positive stress test. Description Of Procedure: Mr. Almendarez was brought to the medical lab scientist today as an outpatient, prepped an d draped in routine sterile fashion, given Versed and fentanyl for sedation. A 6-[place] sheath was i ntroduced in the right common femoral artery successfully using the Seldinger technique. Angiography there was normal. Angio-Seal was used to close the case. Alfredo catheter, left and right were use d to cannulate the left main and then the JR4 was used to cannulate the right coronary, the vein lexie t of the OM and the KU. A pigtail was used to do the LV-gram. We found 70% left main stenosis, 99 % circumflex stenosis ostial. He had a small normal RCA that is nondominant. He had a patent KU t o the LAD, patent vein graft to the OM. End-diastolic pressure was 10 mmHg. Ejection fraction was 3 5% with [id number] global hypokinesis. The patient tolerated the procedure well. Total cons cious sedation 45 minutes. Complications were none. Blood loss was 5 mL. Postoperative Diagnoses: Severe coronary artery disease, severe congestive heart failure. Continue medical treatment. NB/MODL Voice ID: [id number] Report ID: [id number]
== END 2021-06-06 09:42 | disposition home or self-care (01) ==
LOC: CCL 06:30
DX: I25.10 Atherosclerotic heart disease of native coronary artery without angina pectoris (principal); I25.82 Chronic total occlusion of coronary artery; I13.0 Hypertensive heart and chronic kidney disease with heart failure and stage 1 through stage 4 chronic kidney disease, or unspecified chronic kidney disease; I50.22 Chronic systolic (congestive) heart failure; N18.2 Chronic kidney disease, stage 2 (mild); E11.22 Type 2 diabetes mellitus with diabetic chronic kidney disease; I65.23 Occlusion and stenosis of bilateral carotid arteries; E78.2 Mixed hyperlipidemia; E03.9 Hypothyroidism, unspecified; Z95.1 Presence of aortocoronary bypass graft; Z79.82 Long term (current) use of aspirin; Z79.84 Long term (current) use of oral hypoglycemic drugs; Z79.899 Other long term (current) drug therapy; Z87.891 Personal history of nicotine dependence
CPT/HCPCS: 85025; 80048; 36415; 85610; 82947; 85730; 71046; 93459; U0003; C1893; C1760; Q9967; G0269; J2250; J3010; J7040; J1644; J0583

== ENCOUNTER 2021-10-20 10:08 | Observation (INO) | payer OTHER ==
--- OUTSIDE RECORDS SUMMARY | 2021-10-20 10:14 | XMS REPORT | Continuity of Care Document ---
:[address] [facility] t Address [address] [place] [address] Care Team Providers Name Role Phone Db Hartley MD Primary Care Physician ARDEN SANTIAGO Attending Clinician Unavailable ZACHERY SEPULVEDA Attending Clinician Unavailable Zachery Sepulveda II Attending Clinician HAL HOGAN Attending Clinician Unavailable DISHA RAMIREZ Attending Clinician Unavailable ZACHERY SEPULVEDA Admitting Clinician Unavailable Zachery Sepulveda II Admitting Clinician DISHA RAMIREZ Admitting Clinician Unavailable Problems Condition Condition Condition Status Onset Resolution Last Treating Co mments Source Name Details Category Date Date Treatment Clinician Date SPINE SPINE Diagnosis Active 2020-09-01 Mem oria LUMBAR LUMBAR - 21:45:00 l LAMINECTOM LAMINECTOM 00:00: Toby rodarte Y Y Active 08/09/2020 [facility] LUMBAR LUMBAR Diagnosis Active 2020-08-11 Me moria DECOMPRESS DECOMPRESS - 10:14:00 l ION, L3-4 ION, L3-4 00:00: Herm heidi Active 00 08/09/2020 [facility] Diabetes Diabetes Problem Active 2020-08-19 Memoria mellitus mellitus 22:12:26 l (disorder) (disorder) Toby rodarte Active Problem 08/19/2020 [facility] Hyperlipid Hyperlipi Problem Active 2020-08-19 Memoria emia demia 22:12:26 l (disorder) (disorder) He rmann Active Problem 08/19/2020 [facility] Hypertensi Hypertens Problem Active 2020-08-19 Memoria ve keaton 22:12:26 l disorder, disorder, Herm heidi systemic systemic arterial arterial (disorder) (disorder) Active Problem 08/19/2020 [facility] 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" [facility] Thyroid Thyroid Problem Resolve 2020-08-19 Memoria function function d 22:12:26 l tests tests Uri abnormal abnormal (finding) (finding) Resolved Problem 08/19/2020 [facility] Chronic Chronic Problem Active 2020-08-19 Me moria back pain back pain 22:12:26 l (disorder) (disorder) He rmann Active Problem 08/19/2020 [facility] Coronary Coronary Problem Active 2020-08-19 Memoria arterioscl arterioscl 22:12:26 l erosis erosis Uri (disorder) (disorder) Active Problem 08/19/2020 [facility] Allergies, Adverse Reactions, Alerts This patient has no known allergies or adverse reactions. Social History Social Habit Start Date Stop Date Quantity Comments Source History of Occasional tobacco Method ist tobacco use smoker [facility] Social History 2020-08-10 2020-08-10 [facility] hillheidi 15:24:59 15:24:59 Sex [birth year] [place] 00:00:00 00:00:00 [facility] Smoking Status Start Date Stop Date Source Occasional tobacco smoker 2019-10-07 00:00:[address] [facility] Medications Ordered Filled Start Stop Current Ordering Indication Dosage Frequency Signature Comments Components Source Medication Medication Date Date Medication? Clinician (SIG) Name Name Aluminum No Notes: Memoria Hydroxide / 6-30 (aluminum l Magnesium 18:05: hydroxide- He rmann Hydroxide / magnesium Simethicone hyd-simeth icone 200-200-20 mg/5ml 30 ml ud FREDRICK) Xylocaine No Notes: Memori a Viscous 2% 6-30 (Same as: l mucous 18:05: Xylocaine) Feli nn membrane 00 solution GI cocktail No 45 ml, Lorenzo [place] (aluminum 6-30 Route: PO, l hydroxide/m 17:21: Drug Form: Uri agnesium 00 SUSP, hydroxide/l Dosing idocaine/si Weight 81, methicone) kg, ONCE, Routine, Start date: 08/17/20 12:21:00 CDT, Stop date: 08/17/20 12:21:00 CDT atorvastati No Notes: Lorenzo [place] n 6-30 (Same as: l 14:00: Lipitor) [place] 00 Vitamin D3 No Notes: Memor ia 2000 intl 6-30 Same as : l units oral 14:00: Vitamin D3 H ermann tablet 00 Farxiga No 10 mg, 1 Memori a 6-30 tab, l 14:00: Route: PO, Uri 00 Drug form: TAB, Daily, Dosing Weight 81.051, kg, Start date: 08/17/20 9:00:00 CDT, Duration: 30 day, Stop date: 09/15/20 9:00:00 CDT Fenofibrate No Notes: Lorenzo [place] 145 MG Oral 6-30 (Same as: l Tablet 14:00: Tricor) Uri Furosemide No Notes: Memor ia 40 MG Oral 6-30 (Same as: l Tablet 14:00: Lasix) May Feli nn 00 cause GI upset. Give with food or milk. Klor-Con 10 No Notes: Lorenzo [place] 6-30 (Same as: l 14:00: K-Dur 10) [place] "Do Not Crush" With food and full glass of water sacubitril No Notes: Memor ia 49 MG / 6-30 (Same as: l valsartan 14:00: Entresto) Her fischer 51 MG Oral 00 Avoid in Tablet patients [Entresto] with history of angioedema due to AYALA inhibitor or ARB therapy. Do not use concomitan tly or within 36 hours of AYALA inhibitors Thyroxine No Notes: Memori a 6-30 Take 1 l 11:30: hour [place] 00 before or 2 hours after meal; Enteral feeds may interefere with the absorption of this medication . (Same as:Levothr oid, Synthroid) Ancef + No Notes: Memoria sterile 08-17 Give IV l water 10 mL 06:00: push Rajendra n 00 slowly over 3 minutes Give within one hour of reconstitu tion Reconstitu te Cefazolin 1 g vial: 10 mL of SWFI Shake immediatel y & vigorously Dextrose No 12.5 gm, Memor ia 50% Syringe 08-17 25 mL, l (D50W) 03:53: Route: IVP, Drug Form: INJ, Dosing Weight 81, kg, PRN, PRN Blood Glucose Results, Start date: 08/16/20 22:53:00 CDT, Duration: 30 day, Stop date: 09/15/20 22:52:00 CDT, 0 Glucagon No 1 mg, Memoria 08-17 Route: IM, l 03:53: Drug form: PDR/INJ, PRN, Dosing Weight 81, kg, PRN Blood Glucose Results, Start date: 08/16/20 22:53:00 CDT, Duration: 30 day, Stop date: 09/15/20 22:52:00 CDT, 0 Insulin No Notes: Memoria Lispro 08-17 (Same as: l 03:53: Humalog) Roll in palms of hands gently; Do not shake vigorously . WASTE: F/P - Black; E - Municipal Trash Bin Stable for 28 days at room temperatur e. Expires in days from ____Date carvedilol No Notes: Memor ia -30 Give with l 02:00: food. (Same As: Coreg) Hydralazine No 10 mg, Lorenzo [place] 08-17 Route: IV, l 00:31: ONCE, Dosing Weight 81.051, kg, PRN Elevated BP, Start date: 08/16/20 19:31:00 CDT fentaNYL No Route: IV, Mem oria (ANES) 08-17 Drug form: l 00:26: INJ, ONCE, Stop date: 08/16/20 19:26:00 CDT Acetaminoph 2020-0 No 1,000 mg, M emoria en 08-17 Route: PO, l 00:24: Drug form: [place] 00 TAB, ONCE, Dosing Weight 81.051, kg, PRN Pain Score 1-3, Start date: 08/16/20 19:24:00 CDT Fentanyl 2020-0 No 25 Memoria 6-30 microgram, l 00:24: Route: [place] 00 IVP, Q5Min, Dosing Weight 81.051, kg, PRN Pain Score 4-6, Priority: Routine, Start date: 08/16/20 19:24:00 CDT, Duration: 4 doses or times, Stop date: Limited # of times Hydromorpho 2020-0 No 0.5 mg, Mem oria ne 08-17 Route: l 00:24: IVP, Uri 00 Q5Min, Dosing Weight 81.051, kg, PRN Pain Score 7-10, Start date: 08/16/20 19:24:00 CDT, Duration: 4 doses or times, Stop date: Limited # of times Flumazenil 2020-0 No 0.2 mg, Lorenzo [place] 08-17 Route: l 00:24: IVP, PRN, Dosing Weight 81.051, kg, PRN Benzodiaze pine Reversal, Initial dose, Start date: 08/16/20 19:24:00 CDT, Duration: 30 day, Stop date: 09/15/20 19:23:00 CDT Naloxone 2020-0 No 0.4 mg, Memori a 08-17 Route: l 00:24: IVP, [place] 00 Q2MIN, Dosing Weight 81.051, kg, PRN Narcotic Reversal, Start date: 08/16/20 19:24:00 CDT, Duration: 8 doses or times, Stop date: Limited # of times Ondansetron 2020-0 No 4 mg, Memor ia 08-17 Route: l 00:24: IVP, ONCE, Dosing Weight 81.051, kg, PRN Nausea & Vomiting, Start date: 08/16/20 19:24:00 CDT propofol 2021-0 No Route: IV, Mem oria (ANES) 08-16 Drug form: l 23:47: INJ, ONCE, Stop date: 08/16/20 18:47:00 CDT ondansetron No Route: IV, Memoria (ANES) 08-16 Drug form: l 23:47: INJ, ONCE, Stop date: 08/16/20 18:47:00 CDT dexamethaso No Route: IV, Memoria ne (ANES) 08-16 Drug form: l 23:47: INJ, ONCE, Stop date: 08/16/20 18:47:00 CDT ceFAZolin No Route: IV, Me moria (ANES) 08-16 Drug form: l 23:32: INJ, ONCE, Stop date: 08/16/20 18:32:00 CDT lidocaine No Route: IV, Me moria (ANES) 08-16 Drug form: l 23:32: INJ, ONCE, Stop date: 08/16/20 18:32:00 CDT fentaNYL No Route: IV, Mem oria (ANES) 08-16 Drug form: l 23:26: INJ, ONCE, Stop date: 08/16/20 18:26:00 CDT propofol No Route: IV, Mem oria (ANES) 08-16 Drug form: l 23:26: INJ, ONCE, Stop date: 08/16/20 18:26:00 CDT rocuronium No Route: IV, M emoria (ANES) 08-16 Drug form: l 23:26: INJ, ONCE, Stop date: 08/16/20 18:26:00 CDT Ancef No 1 gm, Memoria 08-16 Route: l 23:00: IVPB, ABXQ8H, Dosing Weight 81.051, kg, Start date: 08/16/20 18:00:00 CDT, Duration: 1 day, Stop date: 08/17/20 10:00:00 CDT, ABX Indication : Surgical Prophylaxi s GlipiZIDE No Notes: Memori a XL 10 mg -29 (Same as: l oral 22:46: Glucotrol) Uri tablet, 00 30 min extended before release meals. normal No 1,000 mL, Memori a saline 0.9% 6- Rate: 75 l IV 1,000 mL 22:40: ml/hr, Herm heidi 00 Infuse over: 13.3 hr, Route: IV, Dosing Weight 81.051 kg, Total Volume: 1,000, Start date: 08/16/20 17:40:00 CDT, Duration: 30 day, Stop date: 09/15/20 17:39:00 CDT, BSA: 2.02 m2, 0 Morphine No 2 mg, 1 Memori a 6-29 mL, Route: l 22:40: IVP, Drug [place] 00 form: SOLN, Q2H, Dosing Weight 81.051, kg, PRN Pain Score 7-10, Start date: 08/16/20 17:40:00 CDT, Duration: 30 day, Stop date: 09/15/20 17:39:00 CDT, 0 Acetaminoph No Notes: Do M emoria en 325 MG / - not exceed l Hydrocodone 22:40: 4gm/day of [place] Bitartrate 00 acetaminop 10 MG Oral hen. (Same Tablet as: [place] [[place] 325/10) 10/325] Zofran No Notes: Memoria 6-29 (Same as: l 22:40: Zofran) [place]erman 00 MEDICATION WASTE Product Size: 4 mg Product Wasted: ___ mg Lactated No Route: IV, Mem oria Ringers 6-29 Total l Injection 22:29: Volume: Feli nn IV (ANES) 00 1,000, 1000 mL Start date: 08/16/20 17:29:00 CDT, Stop date: 08/16/20 18:29:00 CDT Calcium No 1,000 mL, Memor ia Chloride 08-16 Rate: 75 l 0.0014 20:16: ml/hr, [place] MEQ/ML / 00 Infuse Potassium over: 13.3 Chloride hr, Route: 0.004 IV, Dosing MEQ/ML / Weight Sodium 81.051 kg, Chloride Total 0.103 Volume: MEQ/ML / 1,000, Sodium Start Lactate date: 0.028 08/16/20 MEQ/ML 15:16:00 Injectable CDT, Solution Duration: 30 day, Stop date: 09/15/20 15:15:00 CDT, BSA: 2.02 m2, 0 Vitamin D3 Yes 2,000 Memori a 2000 intl 6-23 IntlUnit = l units oral 15:12: 1 cap, PO, H ermann capsule 00 Daily Vitamin C Yes 500 mg = 1 Me moria 500 mg oral 6-23 tab, PO, l tablet 15:12: Daily [place] Klor-Con 10 Yes 10 mEq, Mem oria 6-23 PO, Daily l 15:11: Uri 00 dapaglifloz Yes 10 mg = 1 M emoria in 6-23 tab, PO, l propanediol 15:11: Daily Feli nn 10 MG Oral 00 Tablet [Farxiga] tramadol Yes 50 mg = 1 Lorenzo [place] hydrochlori 6-23 tab, PO, l de 50 MG 15:11: Q4H, PRN Feli nn Oral Tablet 00 Pain Furosemide Yes 40 mg = 1 Me moria 40 MG Oral 6-23 tab, PO, l Tablet 15:10: Daily [place] 00 sacubitril Yes 1 tab, PO, M emoria 49 MG / 6-23 BID l valsartan 15:10: Uri 51 MG Oral 00 Tablet [Entresto] Fenofibrate Yes 145 mg = 1 Memoria 145 MG Oral 6-23 tab, PO, l Tablet 15:09: Daily [place] 00 GlipiZIDE Yes 10 mg = 1 Mem oria XL 10 mg 6-23 tab, PO, l oral 15:09: Daily, PRN [place] tablet, 00 GLUCOSE, extended WHEN BS IS release GREATER THAN 150 atorvastati Yes 40 mg = 1 M emoria n 40 mg 6-23 tab, PO, l oral tablet 15:09: Daily Feli nn 00 Aspirin 81 Yes 81 mg = 1 Me moria MG Enteric 6-23 tab, PO, l Coated 15:08: Daily Uri Tablet 00 carvedilol Yes 12.5 mg = Me moria 12.5 mg 6-23 1 tab, PO, l oral tablet 15:08: Q12H Rajendra n 00 levothyroxi Yes 100 Memori a ne 100 mcg 6-23 microgram l (0.1 mg) 15:08: = 1 tab, Feli nn oral tablet 00 PO, Daily aspirin Yes 81mg QD Take 81 mg Meth julieta (ECOTRIN) 8-[address] 81 MG 09:16: daily. Hospita enteric 58 l coated tablet carvediloL Yes 6.25mg Q.5D Take 6.25 [facility] (COREG) 8-[address] 6.25 MG 09:16: mouth 2 Hospita tablet 58 (two) l times a day with meals. levothyroxi Yes 100ug QD Take 100 M ethodi ne 8-[address] (SYNTHROID) 09:16: mouth Hospi ta 100 mcg 58 daily. l tablet metFORMIN Yes 1000mg Q.5D Take 1,000 [facility] (GLUCOPHAGE 8-[address] ) 1,000 mg 09:16: mouth 2 Hosp pierce tablet 58 (two) l times a day with meals. Vital Signs Vital Name Observation Time Observation Value Comments Source Heart Rate 2020-08-17 17:48:35 [facility] [place] Diastolic (mm Hg) 2020-08-17 17:48:28 Mem orial [place] Heart Rate 2020-08-17 17:48:28 [facility] [place] Systolic (mm Hg) 2020-08-17 17:48:28 Lorenzo rial Uri Respitory Rate 2020-08-17 17:48:00 Memori al [place] Temperature Oral (F) 2020-08-17 17:47:51 97.6 F [facility] [place] Heart Rate 2020-08-17 13:10:21 [facility] [place] Systolic (mm Hg) 2020-08-17 13:10:14 Lorenzo rial Uri Diastolic (mm Hg) 2020-08-17 13:10:14 Mem orial Uri Temperature Oral (F) 2020-08-17 13:10:10 98.1 F [facility] [place] Systolic (mm Hg) 2020-08-17 09:11:00 Lorenzo rial [place] Diastolic (mm Hg) 2020-08-17 09:11:00 Mem orial Uri Respitory Rate 2020-08-17 09:03:40 Memori al [place] Temperature Oral (F) 2020-08-17 09:02:43 97.9 F [facility] [place] Respitory Rate 2020-08-17 04:39:50 Memori al Uri Height 2020-08-17 03:19:00 180.34 cm [facility] Uri Weight 2020-08-17 03:19:00 [facility] [place] BMI Calculated 2020-08-17 03:19:00 Memori al [place] Height 2020-08-12 18:18:00 180.34 cm [facility] Uri Weight 2020-08-12 18:18:00 [facility] [place] BMI Calculated 2020-08-12 18:18:00 Memori al [place] Height 2020-08-10 14:46:00 180.34 cm [facility] [place] Weight 2020-08-10 14:46:00 [facility] Uri BMI Calculated 2020-08-10 14:46:00 Memori al [place] Procedures Procedure Date / Time Performing Clinician Source Performed CABG x 2 - Coronary artery 2004-02-19 00:00:00 M [facility]orial Uri bypass grafts x 2 Chemotherapy 2003-02-18 00:00:00 [facility] fischer [facility] Procedure on back [facility] Primary repair of tendon Rashard Grewal Plan of Care Planned Activity Planned Date Details Comments Source Future Scheduled 2021-10-18 COVID-19 VACCINE (#1) [facility] Test 22:25:36 [code = COVID-19 VACCINE (#1)] Future Scheduled 2021-10-18 65+ P[facility]UMOCOCCAL [facility] Test 22:25:36 VACCINE (1 - PCV) [code = 65+ PNEUMOCOCCAL VACCINE (1 - PCV)] Future Scheduled 2021-10-18 SHINGLES VACCINES (1 [facility] Test 22:25:36 of 2) [code = SHINGLES VACCINES (1 of 2)] Future Scheduled 2021-10-18 INFLUENZA VACCINE [facility] Test 22:25:36 [code = INFLUENZA VACCINE] Future Scheduled 2021-10-18 HEPATITIS B VACCINES Met [facility] Test 22:25:36 (1 of 3 - 3-dose series) [code = HEPATITIS B VACCINES (1 of 3 - 3-dose series)] Encounters Start End Encounter Admission Attending Care Care Encounter Source Date/Time Date/Time Type Type Clinicians Facility Department ID 2021-09-19 2021-09-19 Outpatient ELIJAH SANTIAGO BL [facility] 09:36:00 23:59:00 ARDEN 2020-08-16 2020-08-17 Observatio [facility] [id number] Memoria 22:40:00 18:50:00 [facility] 00 l [facility] 2020-08-16 2020-08-17 Outpatient ELIJAH SEPULVEDA MED [facility] [facility] 17:40:00 13:50:00 ZACHERY 2020-08-16 2020-08-17 Outpatient Juan Manuel [facility]IR [facility] [id number] 17:40:00 13:50:00 Zachery 00 2019-10-07 2019-10-07 Outpatient AGECO, [facility] [id number] [place] 00:00:00 00:00:00 HAL 205 Method i 2019-10-05 2019-10-05 Outpatient AGECO, [facility] [id number] [place] 00:00:00 00:00:00 HAL 621 Method i 2016-03-27 2016-03-27 Outpatient [facility] [id number] [place] 00:00:00 00:00:00 DISHA 508 Method i 2015-11-16 2015-11-16 Outpatient [facility] [id number] [place] 00:00:00 00:00:00 DISHA 906 Method i 2015-11-11 2015-11-11 Outpatient [facility] 012 [id number] [place] 00:00:00 00:00:00 DISHA 282 Method i Results Test Description Test Time Test Comments Results Result Comments Source HEMATOLOGY 2020-08-12 18:08:00 Test Item Value Reference Range Interpretation Comme nts Neutrophils # (test code = Neutrophils #) 2.0 1.5-8.1 [id number] 18:08:00 Test Item Value Reference Range Interpretation Comments Lymphocytes # (test code = Lymphocytes 1.6 1.0-5.5 #) [place] [id number] 18:08:00 Test Item Value Reference Range Interpretation Comments Monocytes # (test code 0.5 See_Comment [Aut omated message] The = Monocytes #) system which generated this result tra nsmitted reference range : <=0.8. The reference r daniele was not used to int erpret this result as normal/abnormal . [place] [id number] 18:08:00 Test Item Value Reference Range Interpretation Comments Schistocyte (test code = 1-3 per HPF Schistocyte) (08/12/20 1:08 PM) [place] [id number] 18:08:00 Test Item Value Reference Range Interpretation Comments WBC (test code = WBC) 4.1 3.7-10.4 [place] [id number] 18:08:00 Test Item Value Reference Range Interpretation Comments RBC (test code = RBC) 3.74 4.70-6.10 [place] [id number] 18:08:00 Test Item Value Reference Range Interpretation Comments Hgb (test code = Hgb) 11.6 14.0-18.0 [place] [id number] 18:08:00 Test Item Value Reference Range Interpretation Comments Hct (test code = Hct) 36.3 42.0-54.0 [place] [id number] 18:08:00 Test Item Value Reference Range Interpretation Comments MCV (test code = MCV) 97.0 80.0-94.0 [place] [id number] 18:08:00 Test Item Value Reference Range Interpretation Comments MCH (test code = MCH) 31.0 pg 27.0-31.0 [place] [id number] 18:08:00 Test Item Value Reference Range Interpretation Comments MCHC (test code = MCHC) 32.0 32.0-36.0 [place] [id number] 18:08:00 Test Item Value Reference Range Interpretation Comments RDW (test code = RDW) 18.7 11.5-14.5 [place] [id number] 18:08:00 Test Item Value Reference Range Interpretation Comments Platelet (test code = Platelet) 34 133-450 [id number] 18:08:00 Test Item Value Reference Range Interpretation Comments MPV (test code = MPV) 10.1 7.4-10.4 [facility] [id number] 18:08:00 Test Item Value Reference Range Interpretation Comments Hgb A1C (test code = Hgb A1C) 6.9 [facility] [id number] 18:08:00 Test Item Value Reference Range Interpretation Comments Glucose Lvl (test code = Glucose Lvl) 175 70-99 [facility]2021-06-25 18:08:00 Test Item Value Reference Range Interpretation Comments BUN (test code = BUN) 27 7-22 [facility]2021-06-25 18:08:00 Test Item Value Reference Range Interpretation Comments Creatinine Lvl (test code = Creatinine 1.28 0.50-1.40 Lvl) [facility]2021-06-25 18:08:00 Test Item Value Reference Range Interpretation Comments Sodium Lvl (test code = Sodium Lvl) 141 135-145 [facility]2021-06-25 18:08:00 Test Item Value Reference Range Interpretation Comments Potassium Lvl (test code = Potassium 5.0 3.5-5.1 Lvl) [facility]2021-06-25 18:08:00 Test Item Value Reference Range Interpretation Comments Chloride Lvl (test code = Chloride Lvl) 106 95-109 [facility]2021-06-25 18:08:00 Test Item Value Reference Range Interpretation Comments CO2 (test code = CO2) 31 24-32 [facility]2021-06-25 18:08:00 Test Item Value Reference Range Interpretation Comments Calcium Lvl (test code = Calcium Lvl) 9.2 8.5-10.5 [facility]2021-06-25 18:08:00 Test Item Value Reference Range Interpretation Comments AGAP (test code = AGAP) 9.0 10.0-20.0 [facility]2021-06-25 18:08:00 Test Item Value Reference Range Interpretation Comments eGFR (test code = eGFR) 52 [facility]LxkwvbsGLPAIUHHUL7540-07-01 18:08:00 Test Item Value Reference Range Interpretation Comments RBC Morph (test code = See Note (08/12/20 1:08 RBC Morph) PM) [facility] [id number] 18:08:00 Test Item Value Reference Range Interpretation Comments Plt Morph (test code = Clumped 1(08/12/20 1:08 Plt Morph) PM) [facility] D[id number] 18:08:00 Test Item Value Reference Range Interpretation Comments Segs (test code = Segs) 48.2 45.0-75.0 [facility] Dis[id number] 18:08:00 Test Item Value Reference Range Interpretation Comments Lymphocytes (test code = Lymphocytes) 39.0 20.0-40.0 [facility] D[id number] 18:08:00 Test Item Value Reference Range Interpretation Comments Monocytes (test code = Monocytes) 11.6 2.0-12.0 [facility] [id number] 18:08:00 Test Item Value Reference Range Interpretation Comments Eosinophils (test code = 0.9 See_Comment [A utomated message] The Eosinophils) system which ge nerated this result tra nsmitted reference range : <=4.0. The reference r daniele was not used to int erpret this result as normal/abnormal . [facility] D[id number] 18:08:00 Test Item Value Reference Range Interpretation Comments Basophils (test code = 0.3 See_Comment [Aut omated message] The Basophils) system which ge nerated this result tra nsmitted reference range : <=1.0. The reference r daniele was not used to int erpret this result as normal/abnormal . [facility]
[2021-10-20 10:54] VITALS: BMI 26.3
--- NOTE | 2021-10-20 11:59 | RAD REPORT ---
EXAM DESCRIPTION: Kamila Single View10/20/2021 11:37 am CLINICAL HISTORY: Anemia COMPARISON: August 2021 FINDINGS: Small left pleural effusion with basilar atelectasis Right lung appears clear. Heart remains enlarged. Postsurgical changes involve the chest. border guard in place IMPRESSION: Small left pleural effusion with basilar atelectasis without significant change
[2021-10-20] MEDS ORDERED: DIPHENHYDRAMINE 25 MG TAB/CAP PO PRN (12:00)
[2021-10-20] MEDS ORDERED: NACHLORIDE 0.45% 1,000 ML IV SCH (12:00)
[2021-10-20] MEDS ORDERED: ACETAMINOPHEN 325 MG TABLET PO PRN (12:00)
[2021-10-20 12:18] LABS: RBC Red Blood Cell Count 2.47 M/uL (4.33-5.43)
[2021-10-20 12:29] LABS: Absolute Lymphocytes (CBC) 6.3 K/uL (0.7-4.9); Hematocrit 23.4 % (39.6-49.0); Lymphocytes % 78.9 % (15.3-44.8); MCV 94.7 fL (80-100); MPV 6.7 fL (7.6-11.3)
[2021-10-20 12:41] LABS: Potassium 4.9 mmol/L (3.5-5.1)
[2021-10-20 13:28] LABS: Anisocytosis 1+; Blood Morphology Comment NOTED (NOT SEEN); Platelet Estimate DECR
--- NOTE | 2021-10-20 13:57 | EKG ---
Test Date: 2021-10-20 Test Time: 11:20:22 [employer] Operator: JENNIE MEASUREMENT RESULTS: Intervals: Rate: 59 LA: 208 QRSD: 138 QT: 452 QTc: 447 [place]: P: 40 LA: 208 QRS: 54 T: 195 INTERPRETIVE STATEMENTS: Sinus bradycardia Nonspecific intraventricular block T wave abnormality, consider inferolateral ischemia Abnormal ECG Compared to ECG 02/13/2021 13:51:37 Possible ischemia now present Sinus rhythm no longer present T-wave abnormality still present Electronically Signed On 10-20-21 13:57:22 CDT by Deven Poole
[2021-10-20] MEDS ORDERED: NA CHLORIDE 0.9% 250 ML ONE (14:16)
[2021-10-20 21:57] VITALS: BP 147/66; TEMP 96.7
[2021-10-20 22:05] LABS: Hematocrit 28.3 % (39.6-49.0)
[2021-10-20 23:52] VITALS: O2SAT 99
--- NOTE | 2021-10-25 21:39 | P.SSS ---
Patient History Date of Service: 10/25/21 Reason for admission: WEAKNESS, ANEMIA History of Present Illness: MR. NAVA IS A PATIENT WITH MDS WHO IS ON CHEMO, COMES TO OFFICE WITH WEAKNESS, SHORTNESS OF BREATH AND HG OC 7.9 GM. BEING A CARDIAC PATIENT I DECIDED TO ADMIT HIM FOR TRANSFUSION UNTIL DR. SANTIAGO RETURNS TO [facility]. Allergies No Known Allergies Allergy (Verified 06/05/21 14:26) Home medications list reviewed: Yes Home Medications: Aspirin 81 mg PO DAILY 04/18/20 Atorvastatin Calcium 40 mg PO DAILY 04/18/20 Carvedilol [Coreg] 25 mg PO DAILY 04/18/20 Fenofibrate [Tricor*] 145 mg PO DAILY 04/18/20 Levothyroxine Sodium [Levothyroxine] 100 mcg PO DAILY 04/18/20 Potassium Chloride [Klor-Con 10] 10 meq PO DAILY #90 tablet.er 04/18/20 Cholecalciferol (Vitamin D3) [Vitamin D3] 2,000 unit PO DAILY 02/13/21 Furosemide 80 mg PO DAILY 02/13/21 Glimepiride [Amaryl] 2 mg PO DAILY 02/13/21 Pantoprazole [Protonix Tab] 40 mg PO DAILY 02/13/21 Allopurinol 300 mg PO DAILY 10/20/21 Famotidine 40 mg PO BEDTIME 10/20/21 Tizanidine HCl [Zanaflex] 4 mg PO BEDTIME 10/20/21 - Past Medical/Surgical History Has patient received pneumonia vaccine in the past: No Diabetic: Yes -: DM,ON CHOLETROL MED -: HTN HYPERTHYROID DOUBLE BYPAS SURGERY -: CHF -: NON-HODGKINS LYMPHOMA -: BACK, NECK, SHOULDER SX -: ONE SIDE THYROID REMOVAL -: DBL BYPASS - Social History Smoking Status: Former smoker Alcohol use: No CD- Drugs: No Caffeine use: No Place of Residence: Home Physical Examination - Vital Signs Temperature: 96.7 F Blood Pressure: 147/66 Pulse: 68 Respirations: 17 Pulse Ox (%): 94 - Physical Exam General: Mild distress HEENT: Atraumatic, PERRLA, Mucous membr. moist/pink, EOMI, Sclerae nonicteric Neck: Supple, 2+ carotid pulse no bruit, No LAD, Without JVD or thyroid abnormality Respiratory: Clear to auscultation bilaterally, Normal air movement Cardiovascular: Regular rate/rhythm, Normal S1 S2 Gastrointestinal: Normal bowel sounds, No tenderness Musculoskeletal: No tenderness Integumentary: No rashes Neurological: Normal gait, Normal speech, Normal strength at 5/5 x4 extr, Normal tone, Normal affect Lymphatics: No axilla or inguinal lymphadenopathy - Diagnosis (Problem(s)) (1) Anemia Status: Acute Plan: AFTER TWO UNITS OF PACKED RBCS. HG IS UP TO 9.3 GM. HE WILL FU WITH HE IS DISCHARGED IN STABLE CONDITION. (2) MDS (myelodysplastic syndrome) Status: Chronic - Disposition Disposition: ROUTINE DISCHARGE Condition: GOOD
== END 2021-10-20 22:58 | disposition home or self-care (01) ==
LOC: 4TH 10:08
PROVIDERS: ADMIT Internal Medicine; ATTEND Internal Medicine
DX: D64.9 Anemia, unspecified (principal); D46.9 Myelodysplastic syndrome, unspecified; E11.9 Type 2 diabetes mellitus without complications; E05.90 Thyrotoxicosis, unspecified without thyrotoxic crisis or storm; I11.0 Hypertensive heart disease with heart failure; Z95.1 Presence of aortocoronary bypass graft; Z87.891 Personal history of nicotine dependence
CPT/HCPCS: 36430; 93005; 85025; 80048; 36415; 86900; 86850; 86901; 82947 ×3; 85018; 85014; 71045; P9016 ×2; J7050; G0378 ×2

== ENCOUNTER 2021-12-06 20:10 | Inpatient (IN) | payer OTHER ==
--- OUTSIDE RECORDS SUMMARY | 2021-12-06 20:14 | XMS REPORT | Continuity of Care Document ---
:1940 Author Organization [facility] t Address [address] [place] [address] Care Team Providers Name Role Phone Db Hartley MD Primary Care Physician ARDEN SANTIAGO Attending Clinician Unavailable ZACHERY SEPULVEDA Attending Clinician Unavailable Zachery Sepulveda II Attending Clinician HAL HOGAN Attending Clinician Unavailable DISHA ARMIREZ Attending Clinician Unavailable ZACHERY SEPULVEDA Admitting Clinician Unavailable Zachery Sepulveda II Admitting Clinician DISHA RAMIREZ Admitting Clinician Unavailable Problems Condition Condition Condition Status Onset Resolution Last Treating Co mments Source Name Details Category Date Date Treatment Clinician Date SPINE SPINE Diagnosis Active 2020-09-01 Mem oria LUMBAR LUMBAR - 21:45:00 l LAMINECTOM LAMINECTOM 00:00: Toby rodarte Y Y Active 08/09/2020 [facility] LUMBAR LUMBAR Diagnosis Active 2020-08-11 Me moria DECOMPRESS DECOMPRESS - 10:14:00 l ION, L3-4 ION, L3-4 00:00: Herm heidi Active 00 08/09/2020 [facility] Diabetes Diabetes Problem Active 2020-08-19 Memoria mellitus mellitus 22:12:26 l (disorder) (disorder) Toby rodarte Active Problem 08/19/2020 [facility] Hyperlipid Hyperlipi Problem Active 2020-08-19 Memoria emia demia 22:12:26 l (disorder) (disorder) He rmann Active Problem 08/19/2020 [facility] Hypertensi Hypertens Problem Active 2020-08-19 Memoria ve keaton 22:12:26 l disorder, disorder, Herm heidi systemic systemic arterial arterial (disorder) (disorder) Active Problem 08/19/2020 [facility] 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" [facility] Thyroid Thyroid Problem Resolve 2020-08-19 M emoria function function d 22:12:26 l tests tests [place] abnormal abnormal (finding) (finding) Resolved Problem 08/19/2020 [facility] Chronic Chronic Problem Active 2020-08-19 Me moria back pain back pain 22:12:26 l (disorder) (disorder) He rmann Active Problem 08/19/2020 [facility] Coronary Coronary Problem Active 2020-08-19 Memoria arterioscl arterioscl 22:12:26 l erosis erosis Uri (disorder) (disorder) Active Problem 08/19/2020 [facility] Allergies, Adverse Reactions, Alerts This patient has no known allergies or adverse reactions. Social History Social Habit Start Date Stop Date Quantity Comments Source History of Occasional tobacco Method ist tobacco use smoker [facility] Social History 2020-08-10 2020-08-10 [facility] kenneth 15:24:59 15:24:59 Sex [birth year] Nondenominational 00:00:00 00:00:00 [facility] Smoking Status Start Date Stop Date Source Occasional tobacco smoker 2019-10-07 00:00:00 [facility] Medications Ordered Filled Start Stop Current Ordering Indication Dosage Frequency Signature Comments Components Source Medication Medication Date Date Medication? Clinician (SIG) Name Name Aluminum No Notes: Memoria Hydroxide / 6-30 (aluminum l Magnesium 18:05: hydroxide- He rmann Hydroxide / 00 magnesium Simethicone hyd-simeth icone 200-200-20 mg/5ml 30 ml ud FREDRICK) Xylocaine No Notes: Memori a Viscous 2% 6-30 (Same as: l mucous 18:05: Xylocaine) Feli nn membrane 00 solution Aluminum No Notes: Memoria Hydroxide / 6-30 (aluminum l Magnesium 18:05: hydroxide- He rmann Hydroxide / 00 magnesium Simethicone hyd-simeth icone 200-200-20 mg/5ml 30 [...] 12:21:00 CDT, Stop date: 08/17/20 12:21:00 CDT GI cocktail No 45 ml, Lorenzo [place] (aluminum 6-30 Route: PO, l hydroxide/m 17:21: Drug Form: Uri agnesium 00 SUSP, hydroxide/l Dosing idocaine/si Weight 81, methicone) kg, ONCE, Routine, Start date: 08/17/20 12:21:00 CDT, Stop date: 08/17/20 12:21:00 CDT atorvastati No Notes: Lorenzo [place] n 6-30 (Same as: l 14:00: Lipitor) Uri Vitamin D3 No Notes: Memor ia 2000 intl 6-30 Same as : l units oral 14:00: Vitamin D3 H ermann tablet 00 Farxiga No 10 mg, 1 Memori a 6-30 tab, l 14:00: Route: PO, [place] 00 Drug form: TAB, Daily, Dosing Weight 81.051, kg, Start date: 08/17/20 9:00:00 CDT, Duration: 30 day, Stop date: 09/15/20 9:00:00 CDT Fenofibrate No Notes: Lorenzo [place] 145 MG Oral 6-30 (Same as: l Tablet 14:00: Tricor) [place] Furosemide No Notes: Memor ia 40 MG Oral 6-30 (Same as: l Tablet 14:00: Lasix) June Feli nn cause GI upset. Give with food or milk. Klor-Con No Notes: Lorenzo [place] 6-30 (Same as: l 14:00: K-Dur 10) "Do Not Crush" With food and full glass of water sacubitril No Notes: Memor ia 49 MG / 6-30 (Same as: l valsartan 14:00: Entresto) Her fischer 51 MG Oral 00 Avoid in Tablet patients [Entresto] with history of angioedema due to AYALA inhibitor or ARB therapy. Do not use concomitan tly or within 36 hours of AYALA inhibitors atorvastati No Notes: Lorenzo [place] n 6-30 (Same as: l 14:00: Lipitor) Vitamin D3 No Notes: Memor ia 2000 intl 6-30 Same as : l units oral 14:00: Vitamin D3 H ermann tablet Farxiga No 10 mg, 1 Memori a 6-30 tab, l 14:00: Route: PO, Drug form: TAB, Daily, Dosing Weight 81.051, kg, Start date: 08/17/20 9:00:00 CDT, Duration: 30 day, Stop date: 09/15/20 9:00:00 CDT Fenofibrate No Notes: Lorenzo [place] 145 MG Oral 6-30 (Same as: l Tablet 14:00: Tricor) Furosemide No Notes: Memor ia 40 MG Oral 6-30 (Same as: l Tablet 14:00: Lasix) June Feli nn cause GI upset. Give with food or milk. Klor-Con 10 No Notes: Lorenzo brooklyn 6-30 (Same as: l 14:00: K-Dur 10) "Do Not Crush" With food and full [...] a 6-30 Take 1 l 11:30: hour Uri 00 before or 2 hours after meal; Enteral feeds may interefere with the absorption of this medication . (Same as:Levothr oid, Synthroid) Thyroxine No Notes: Memori a 6-30 Take 1 l 11:30: hour Uri 00 before or 2 hours after meal; Enteral feeds may interefere with the absorption of this medication . (Same as:Levothr oid, Synthroid) Ancef + No Notes: Memoria sterile 6-30 Give IV l water 10 mL 06:00: push Rajendra n 00 slowly over 3 minutes Give within one hour of reconstitu tion Reconstitu te Cefazolin 1 g vial: 10 mL of SWFI Shake immediatel y & vigorously Ancef + No Notes: Memoria sterile 6-30 Give IV l water 10 mL 06:00: [...] Stop date: 09/15/20 22:52:00 CDT, 0 Glucagon 2020- No 1 mg, Memoria 30 Route: IM, l 03:53: Drug form: PDR/INJ, PRN, Dosing Weight 81, kg, PRN Blood Glucose Results, Start date: 08/16/20 22:53:00 CDT, Duration: 30 day, Stop date: 09/15/20 22:52:00 CDT, 0 Insulin 2020-0 No Notes: Memoria Lispro -30 (Same as: l 03:53: Humalog) Roll in palms of hands gently; Do not shake vigorously . WASTE: F/P - Black; E - Municipal Trash Bin Stable for 28 days at room temperatur e. Expires in days from ____Date Dextrose No 12.5 gm, Memor ia 50% Syringe 6-30 25 mL, l (D50W) 03:53: Route: IVP, Drug Form: INJ, Dosing Weight 81, kg, PRN, PRN Blood Glucose Results, Start date: 08/16/20 22:53:00 CDT, Duration: 30 day, Stop date: 09/15/20 22:52:00 CDT, 0 Glucagon No 1 mg, Memoria 6-30 Route: IM, l 03:53: Drug form: PDR/INJ, PRN, Dosing Weight 81, kg, PRN Blood Glucose Results, Start date: 08/16/20 22:53:00 CDT, Duration: 30 day, Stop date: 09/15/20 22:52:00 CDT, 0 Insulin No Notes: Memoria Lispro 6-30 (Same as: l 03:53: Humalog) Roll in palms of hands gently; Do not shake vigorously . WASTE: F/P - Black; E - Municipal Trash Bin Stable for 28 days at room temperatur e. Expires in days from ____Date carvedilol No Notes: Memor ia 6-30 Give with l 02:00: food. (Same As: Coreg) carvedilol No Notes: Memor ia 6-30 Give with l 02:00: food. (Same As: Coreg) Hydralazine No 10 mg, Lorenzo brooklyn 6-30 Route: IV, l 00:31: ONCE, Dosing Weight 81.051, kg, PRN Elevated BP, Start date: 08/16/20 19:31:00 CDT Hydralazine No 10 mg, Lorenzo [place] 6-30 Route: IV, l 00:31: ONCE, Dosing Weight 81.051, kg, PRN Elevated BP, Start date: 08/16/20 19:31:00 CDT fentaNYL 2020-0 No Route: IV, Mem oria (ANES) 08-17 Drug form: l 00:26: INJ, ONCE, Stop date: 08/16/20 19:26:00 CDT fentaNYL 2020-0 No Route: IV, Mem oria (ANES) 08-17 Drug form: l 00:26: INJ, ONCE, Stop date: 08/16/20 19:26:00 CDT Acetaminoph 2020-0 No 1,000 mg, M emoria en 08-17 Route: PO, l 00:24: Drug form: TAB, ONCE, Dosing Weight 81.051, kg, PRN Pain Score 1-3, Start date: 08/16/20 19:24:00 CDT Fentanyl 2020-0 No 25 Memoria 6-30 microgram, l 00:24: Route: IVP, Q5Min, Dosing Weight 81.051, kg, PRN [...] Flumazenil 2020-0 No 0.2 mg, Lorenzo bro[place]lyn 30 Route: l 00:24: IVP, PRN, Dosing Weight 81.051, kg, PRN Benzodiaze pine Reversal, Initial dose, Start date: 08/16/20 19:24:00 CDT, Duration: 30 day, Stop date: 09/15/20 19:23:00 CDT Naloxone 2020-0 No 0.4 mg, Memori a 30 Route: l 00:24: IVP, Uri 00 Q2MIN, Dosing Weight 81.051, kg, PRN Narcotic Reversal, Start date: 08/16/20 19:24:00 CDT, Duration: 8 doses or times, Stop date: Limited # of times Ondansetron 2020-0 No 4 mg, Memor ia 6-30 Route: l 00:24: IVP, ONCE, [place] 00 Dosing Weight 81.051, kg, PRN Nausea & Vomiting, Start date: 08/16/20 19:24:00 CDT Acetaminoph 2020-0 No 1,000 mg, M emoria en 30 Route: PO, l 00:24: Drug form: Uri TAB, ONCE, Dosing Weight 81.051, kg, PRN Pain Score 1-3, Start date: 08/16/20 19:24:00 CDT Fentanyl 2020-0 No 25 Memoria 6-30 microgram, l 00:24: Route: Uri 00 IVP, Q5Min, Dosing Weight 81.051, kg, PRN Pain Score 4-6, Priority: Routine, Start date: 08/16/20 19:24:00 CDT, Duration: 4 doses or times, Stop date: Limited # of times Hydromorpho 2020-0 No 0.5 mg, Mem oria ne 630 Route: l 00:24: IVP, Uri 00 Q5Min, Dosing Weight 81.051, kg, PRN Pain Score 7-10, Start date: 08/16/20 19:24:00 CDT, Duration: 4 doses or times, Stop date: Limited # of times Flumazenil 2020-0 No 0.2 mg, Lorenzo [place] 630 Route: l 00:24: IVP, PRN, Uri 00 Dosing Weight 81.051, kg, PRN Benzodiaze pine Reversal, Initial dose, Start date: 08/16/20 19:24:00 CDT, Duration: 30 day, Stop date: 09/15/20 19:23:00 CDT Naloxone 2020-0 No 0.4 mg, Memori a 630 Route: l 00:24: IVP, [place] 00 Q2MIN, Dosing Weight 81.051, kg, PRN Narcotic Reversal, Start date: 08/16/20 19:24:00 CDT, Duration: 8 doses or times, Stop date: Limited # of times Ondansetron 2020-0 No 4 mg, Memor ia 630 Route: l 00:24: IVP, ONCE, Dosing Weight 81.051, kg, PRN Nausea & Vomiting, Start date: 08/16/20 19:24:00 CDT propofol 0 No Route: IV, Mem oria (ANES) 6- Drug form: l 23:47: INJ, ONCE, Stop date: 08/16/20 18:47:00 CDT ondansetron 0 No Route: IV, Memoria (ANES) 6- Drug form: l 23:47: INJ, ONCE, Stop date: 08/16/20 18:47:00 CDT dexamethaso 2020-0 No Route: IV, Memoria ne (ANES) 6- Drug form: l 23:47: INJ, ONCE, Stop date: 08/16/20 18:47:00 CDT propofol 2020-0 No Route: IV, Mem oria (ANES) 6- Drug form: l 23:47: INJ, ONCE, Stop date: 08/16/20 18:47:00 CDT ondansetron 2020-0 No Route: IV, Memoria (ANES) 6- Drug form: l 23:47: INJ, ONCE, Stop date: 08/16/20 18:47:00 CDT dexamethaso 2020-0 No Route: IV, Memoria ne (ANES) 6- Drug form: l 23:47: INJ, ONCE, Stop date: 08/16/20 18:47:00 CDT ceFAZolin 2020-0 No Route: IV, Me moria (ANES) 6-29 Drug form: l 23:32: INJ, ONCE, Stop date: 08/16/20 18:32:00 CDT lidocaine 2020-0 No Route: IV, Me moria (ANES) 6-29 Drug form: l 23:32: INJ, ONCE, Stop date: 08/16/20 18:32:00 CDT ceFAZolin 2020-0 No Route: IV, Me moria (ANES) 6-29 Drug form: l 23:32: INJ, ONCE, Stop date: 08/16/20 18:32:00 CDT lidocaine 0 No Route: IV, Me moria (ANES) 08-16 Drug form: l 23:32: INJ, ONCE, Stop date: 08/16/20 18:32:00 CDT fentaNYL 0 No Route: IV, Mem oria (ANES) 08-16 Drug form: l 23:26: INJ, ONCE, Stop date: 08/16/20 18:26:00 CDT propofol 0 No Route: IV, Mem oria (ANES) 08-16 Drug form: l 23:26: INJ, ONCE, Stop date: 08/16/20 18:26:00 CDT rocuronium 0 No Route: IV, M emoria (ANES) 08-16 Drug form: l 23:26: INJ, ONCE, Stop date: 08/16/20 18:26:00 CDT fentaNYL 0 No Route: IV, Mem oria (ANES) 08-16 Drug form: l 23:26: INJ, ONCE, Stop date: 08/16/20 18:26:00 CDT propofol 0 No Route: IV, Mem oria (ANES) 08-16 Drug form: l 23:26: INJ, ONCE, Stop date: 08/16/20 18:26:00 CDT rocuronium 0 No Route: IV, M emoria (ANES) 08-16 Drug form: l 23:26: INJ, ONCE, Stop date: 08/16/20 18:26:00 CDT Ancef No 1 gm, Memoria 08-16 Route: l 23:00: IVPB, ABXQ8H, Dosing Weight 81.051, kg, Start date: 08/16/20 18:00:00 CDT, Duration: 1 day, Stop date: 08/17/20 10:00:00 CDT, ABX Indication : Surgical Prophylaxi s Ancef No 1 gm, Memoria 08-16 Route: l 23:00: IVPB, Uri 00 ABXQ8H, Dosing Weight 81.051, kg, Start date: 08/16/20 18:00:00 CDT, Duration: 1 day, Stop date: 08/17/20 10:00:00 CDT, ABX Indication : Surgical Prophylaxi s GlipiZIDE No Notes: Memori a XL 10 mg 6-29 (Same as: l oral 22:46: Glucotrol) [place] tablet, 00 30 min extended before release meals. GlipiZIDE No Notes: Memori a XL 10 mg 6-29 (Same as: l oral 22:46: Glucotrol) [place] tablet, 00 30 min extended before release meals. normal No 1,000 mL, Memori a saline 0.9% -29 Rate: 75 l IV 1,000 mL 22:40: ml/hr, Herm Infuse over: 13.3 hr, Route: IV, Dosing Weight 81.051 kg, Total Volume: 1,000, Start date: 08/16/20 17:40:00 CDT, Duration: 30 day, Stop date: 09/15/20 17:39:00 CDT, BSA: 2.02 m2, 0 Morphine No 2 mg, 1 Memori a 6-29 mL, Route: l 22:40: IVP, Drug form: SOLN, Q2H, Dosing Weight 81.051, kg, PRN Pain Score 7-10, Start date: 08/16/20 17:40:00 CDT, Duration: 30 day, Stop date: 09/15/20 17:39:00 CDT, 0 Acetaminoph No Notes: Do M emoria en 325 MG / -29 not exceed l Hydrocodone 22:40: 4gm/day of Uri Bitartrate 00 acetaminop 10 MG Oral hen. Tablet (Same as: [Hardin Hardin 10/325] 325/10) Zofran No Notes: Memoria 6-29 (Same as: l 22:40: Zofran) [place] 00 MEDICATION WASTE Product Size: 4 mg Product Wasted: ___ mg normal No 1,000 mL, Memori a saline 0.9% 08-16 Rate: 75 l IV 1,000 mL 22:40: ml/hr, Herm heidi 00 Infuse over: 13.3 hr, Route: IV, Dosing Weight 81.051 kg, Total Volume: 1,000, Start date: 08/16/20 17:40:00 CDT, Duration: 30 day, Stop date: 09/15/20 17:39:00 CDT, BSA: 2.02 m2, 0 Morphine No 2 mg, 1 Memori a -29 mL, Route: l 22:40: IVP, Drug Uri 00 form: SOLN, Q2H, Dosing Weight 81.051, kg, PRN Pain Score 7-10, Start date: 08/16/20 17:40:00 CDT, Duration: 30 day, Stop date: 09/15/20 17:39:00 CDT, 0 Acetaminoph No Notes: Do M emoria en 325 MG / 08-16 not exceed l Hydrocodone 22:40: 4gm/day of Uri Bitartrate 00 acetaminop 10 MG Oral hen. (Same Tablet as: Hardin [Hardin 325/10) 10/325] Zofran No Notes: Memoria 08-16 (Same as: l 22:40: Zofran) MEDICATION WASTE Product Size: 4 mg Product Wasted: ___ mg Lactated No Route: IV, Mem oria Ringers 08-16 Total l Injection 22:29: Volume: Feli nn IV (ANES) 00 1,000, 1000 mL Start date: 08/16/20 17:29:00 CDT, Stop date: 08/16/20 18:29:00 CDT Lactated No Route: IV, Mem oria Ringers 08-16 Total l Injection 22:29: Volume: Feli nn IV (ANES) 00 1,000, 1000 mL Start date: 08/16/20 17:29:00 CDT, Stop date: 08/16/20 18:29:00 CDT Calcium No 1,000 mL, Memor ia Chloride 08-16 Rate: 75 l 0.0014 20:16: ml/hr, [place] MEQ/ML / 00 Infuse Potassium over: 13.3 Chloride hr, Route: 0.004 IV, Dosing MEQ/ML / Weight Sodium 81.051 kg, Chloride Total 0.103 Volume: MEQ/ML / 1,000, Sodium Start Lactate date: 0.028 08/16/20 MEQ/ML 15:16:00 Injectable CDT, Solution Duration: 30 day, Stop date: 09/15/20 15:15:00 CDT, BSA: 2.02 m2, 0 Calcium No 1,000 mL, Memor ia Chloride 08-16 Rate: 75 l 0.0014 20:16: ml/hr, [place] MEQ/ML / 00 Infuse Potassium over: 13.3 Chloride hr, Route: 0.004 IV, Dosing MEQ/ML / Weight Sodium 81.051 kg, Chloride Total 0.103 Volume: MEQ/ML / 1,000, Sodium Start Lactate date: 0.028 08/16/20 MEQ/ML 15:16:00 Injectable CDT, Solution Duration: 30 day, Stop date: 09/15/20 15:15:00 CDT, BSA: 2.02 m2, 0 Vitamin D3 0 Yes 2,000 Memori a 2000 intl 08-10 IntlUnit = l units oral 15:12: 1 cap, PO, H ermann capsule 00 Daily Vitamin C Yes 500 mg = 1 Me moria 500 mg oral - tab, PO, l tablet 15:12: Daily Vitamin D3 0 Yes 2,000 Memori a 2000 intl 08-10 IntlUnit = l units oral 15:12: 1 cap, PO, H ermann capsule 00 Daily Vitamin C 0 Yes 500 mg = 1 Me moria 500 mg oral -23 tab, PO, l tablet 15:12: Daily [place] 00 Klor-Con 10 Yes 10 mEq, Mem oria 08-10 PO, Daily l 15:11: [place] 00 dapaglifloz Yes 10 mg = 1 M emoria in 08-10 tab, PO, l propanediol 15:11: Daily Feli nn 10 MG Oral 00 Tablet [Farxiga] tramadol Yes 50 mg = 1 Lorenzo [place] hydrochlori 6-23 tab, PO, l de 50 MG 15:11: Q4H, PRN Feli nn Oral Tablet 00 Pain Klor-Con 10 Yes 10 mEq, Mem oria 6-23 PO, Daily l 15:11: Uri dapaglifloz Yes 10 mg = 1 M [...] 6-23 tab, PO, l Tablet 15:10: Daily [place] sacubitril Yes 1 tab, PO, M emoria 49 MG / 6-23 BID l valsartan 15:10: Uri 51 MG Oral 00 Tablet [Entresto] Furosemide Yes 40 mg = 1 Me moria 40 MG Oral 6-23 tab, PO, l Tablet 15:10: Daily Uri 00 sacubitril Yes 1 tab, PO, M emoria 49 MG / 6-23 BID l valsartan 15:10: Uri 51 MG Oral 00 Tablet [Entresto] Fenofibrate Yes 145 mg = 1 Memoria 145 MG Oral 6-23 tab, PO, l Tablet 15:09: Daily GlipiZIDE Yes 10 mg = 1 Mem oria XL 10 mg 6-23 tab, PO, l oral 15:09: Daily, PRN [place] tablet, 00 GLUCOSE, extended WHEN BS IS release GREATER THAN 150 atorvastati Yes 40 mg = 1 M emoria n 40 mg 6-23 tab, PO, l oral tablet 15:09: Daily Feli nn 00 Fenofibrate Yes 145 mg = 1 Memoria 145 MG Oral 6-23 tab, PO, l Tablet 15:09: Daily Uri GlipiZIDE Yes 10 mg = 1 Mem oria XL 10 mg 6-23 tab, PO, l oral 15:09: Daily, PRN [place] tablet, 00 GLUCOSE, extended WHEN BS IS release GREATER THAN 150 atorvastati Yes 40 mg = 1 M emoria n 40 mg 6-23 tab, PO, l oral tablet 15:09: Daily Feli nn 00 Aspirin 81 0 Yes 81 mg = 1 Me moria [...] Feli nn oral tablet 00 PO, Daily Aspirin 81 Yes 81 mg = 1 Me moria MG Enteric 6-23 tab, PO, l Coated 15:08: Daily [place] Tablet 00 carvedilol Yes 12.5 mg = Me moria 12.5 mg 6-23 1 tab, PO, l oral tablet 15:08: Q12H Rajendra n 00 levothyroxi Yes 100 Memori a ne 100 mcg 6-23 microgram l (0.1 mg) 15:08: = 1 tab, Feli nn oral tablet 00 PO, Daily aspirin 2020-0 Yes 81mg QD Take 81 mg Meth julieta (ECOTRIN) 8-[address] 81 MG 09:16: daily. [facility]ospita enteric 58 l coated tablet carvediloL 2019-0 Yes 6.25mg Q.5D Take 6.25 [facility] (COREG) 8-[address] 6.25 MG 09:16: mouth 2 Hospita tablet 58 (two) l times a day with meals. levothyroxi 2020-0 Yes 100ug QD Take 100 M ethodi ne 8-[address] (SYNTHROID) 09:16: mouth Hospi ta 100 mcg 58 daily. l tablet metFORMIN 2020-0 Yes 1000mg Q.5D Take 1,000 [facility] (GLUCOPHAGE 8-[address] ) 1,000 mg 09:16: mouth 2 Hosp pierce tablet 58 (two) l times a day with meals. aspirin 2020-0 Yes 81mg QD Take 81 mg Meth julieta (ECOTRIN) 8-[address] 81 MG 09:16: daily. Hospita enteric 58 l coated tablet carvediloL 2020-0 Yes 6.25mg Q.5D Take 6.25 [facility] (COREG) 8-[address] 6.25 MG 09:16: mouth 2 Hospita tablet 58 (two) l times a day with meals. levothyroxi 2020-0 Yes 100ug QD Take 100 M ethodi ne 8-[address] (SYNTHROID) 09:16: mouth Hospi ta 100 mcg 58 daily. l tablet metFORMIN 2020-0 Yes 1000mg Q.5D Take 1,000 [facility] (GLUCOPHAGE 8-[address] ) 1,000 mg 09:16: mouth 2 Hosp pierce tablet 58 (two) l times a day with meals. Vital Signs Vital Name Observation Time Observation Value Comments Source Heart Rate 2020-08-17 17:48:35 [facility] Diastolic (mm Hg) 2020-08-17 17:48:28 Mem orial [place] Heart Rate 2020-08-17 17:48:28 [facility] Systolic (mm Hg) 2020-08-17 17:48:28 Lorenzo rial Uri Respitory Rate 2020-08-17 17:48:00 Memori al Uri Temperature Oral (F) 2020-08-17 17:47:51 97.6 F [facility] [place] Heart Rate 2020-08-17 13:10:21 [facility] Systolic (mm Hg) 2020-08-17 13:10:14 Lorenzo rial Uri Diastolic (mm Hg) 2020-08-17 13:10:14 Mem orial Uri Temperature Oral (F) 2020-08-17 13:10:10 98.1 F [facility] [place] Systolic (mm Hg) 2020-08-17 09:11:00 Lorenzo rial [place] Diastolic (mm Hg) 2020-08-17 09:11:00 Mem orial Uri Respitory Rate 2020-08-17 09:03:40 Memori al [place] Temperature Oral (F) 2020-08-17 09:02:43 97.9 F [facility] [place] Respitory Rate 2020-08-17 04:39:50 Memori al Uri Height 2020-08-17 03:19:00 180.34 cm [facility] Weight 2020-08-17 03:19:00 [facility] BMI Calculated 2020-08-17 03:19:00 Memori al [place] Height 2020-08-12 18:18:00 180.34 cm [facility] [place] Weight 2020-08-12 18:18:00 [facility] BMI Calculated 2020-08-12 18:18:00 Memori al [place] Height 2020-08-10 14:46:00 180.34 cm [facility] Uri Weight 2020-08-10 14:46:00 [facility] [place] BMI Calculated 2020-08-10 14:46:00 [facility] [place] Procedures Procedure Date / Time Performing Clinician Source Performed CABG x 2 - Coronary artery 2004-02-19 00:00:00 M [facility] [place] bypass grafts x 2 Chemotherapy 2003-02-18 00:00:00 [facility] fischer Neck procedure [facility] Procedure on back [facility] nn Partial lobectomy of [facility] thyroid Cholecystectomy [facility] Primary repair of tendon Rashard Grewal Plan of Care Planned Activity Planned Date Details Comments Source Future Scheduled 2021-10-18 COVID-19 VACCINE (#1) [facility] Test 22:25:36 [code = COVID-19 VACCINE (#1)] Future Scheduled 2021-10-18 65+ PNEUMOCOCCAL [facility] Test 22:25:36 VACCINE (1 - PCV) [code = 65+ PNEUMOCOCCAL VACCINE (1 - PCV)] Future Scheduled 2021-10-18 SHINGLES VACCINES (1 [facility] Test 22:25:36 of 2) [code = SHINGLES VACCINES (1 of 2)] Future Scheduled 2021-10-18 INFLUENZA VACCINE [facility] Test 22:25:36 [code = INFLUENZA VACCINE] Future Scheduled 2021-10-18 HEPATITIS B VACCINES Met [facility] Test 22:25:36 (1 of 3 - 3-dose series) [code = HEPATITIS B VACCINES (1 of 3 - 3-dose series)] Future Scheduled 2021-10-18 65+ [facility] 22:25:36 VACCINE (1 - PCV) [code = 65+ PNEUMOCOCCAL VACCINE (1 - PCV)] Future Scheduled 2021-10-18 SHINGLES VACCINES (1 Met [facility] Test 22:25:36 of 2) [code = SHINGLES VACCINES (1 of 2)] Future Scheduled 2021-10-18 INFLUENZA VACCINE Method [facility] Test 22:25:36 [code = INFLUENZA VACCINE] Future Scheduled 2021-10-18 HEPATITIS B VACCINES Met [facility] Test 22:25:36 (1 of 3 - 3-dose series) [code = HEPATITIS B VACCINES (1 of 3 - 3-dose series)] Future Scheduled 2021-10-18 COVID-19 VACCINE (#1) [facility] Test 22:25:36 [code = COVID-19 VACCINE (#1)] Encounters Start End Encounter Admission Attending Care Care Encounter Source Date/Time Date/Time Type Type Clinicians Facility Department ID 2021-09-19 2021-09-19 Outpatient ELIJAH SANTIAGO BL [address] [facility] 09:36:00 23:59:00 [place] 2020-08[facility]16 [id number] Mem[facility] 22:40:00 18:50:00 n r [place] 00 l [facility] 2020-08-16 [id number] Memoria 22:40:00 18:50:00 n r [place] 00 l [facility] 2020-08-16 2020-08-17 Outpatient ELIJAH SEPULVEDA [facility] [address] 17:40:00 13:50:00 ZACHERY 2020-08-16 2020-08-17 [facility] [id number] 17:40:00 13:50:00 Zacher[place] 2019-10-07 2019-10-07 Outpatient AGJOSESITOECO, [facility] [id number] [place] 00:00:00 00:00:00 HAL 205 Method i 2019-10-05 2019-10-05 Outpatient AGJOSESITOECO, [facility] [id number] [place] 00:00:00 00:00:00 HAL 621 Method i 2016-03-27 2016-03-27 [id number] [id number] [place] 00:00:00 00:00:00 DISHA 508 Method i 2015-11-16 2015-11-16 [id number] [id number] [place] 00:00:00 00:00:00 DISHA [address] 2015-11-11 2015-11-11 Outpatient ASHLEY, [place] [id number] [place] 00:00:00 00:00:00 DISHA [address] Results Test Description Test Time Test Comments Results Result Comments Source HEMATOLOGY 2020-08-12 18:08:00 Test Item Value Reference Range Interpretation Comme nts WBC (test code = WBC) 4.1 3.7-10.4 [id number]:08:00 Test Item Value Reference Range Interpretation Comments RBC (test code = RBC) 3.74 4.70-6.10 [place] [facility] 18:08:00 Test Item Value Reference Range Interpretation Comments Hgb (test code = Hgb) 11.6 14.0-18.0 [facility]QISXMTXOJ1933-99-57 18:08:00 Test Item Value Reference Range Interpretation Comments Hct (test code = Hct) 36.3 42.0-54.0 [facility]eeoxadZKOWVVMSJX7820-18-64 18:08:00 Test Item Value Reference Range Interpretation Comments MCV (test code = MCV) 97.0 80.0-94.0 [facility]MKGPUFOCVF9283-88-10 18:08:00 Test Item Value Reference Range Interpretation Comments MCH (test code = MCH) 31.0 pg 27.0-31.0 [facility]EjtdnsxVVKJREJLKU7898-35-34 18:08:00 Test Item Value Reference Range Interpretation Comments MCHC (test code = MCHC) 32.0 32.0-36.0 [facility] SouthLyxgqhyZRSSPCLUZA8252-85-30 18:08:00 Test Item Value Reference Range Interpretation Comments RDW (test code = RDW) 18.7 11.5-14.5 [facility] SouthJfujartSPOPPGADIF3053-50-24 18:08:00 Test Item Value Reference Range Interpretation Comments Platelet (test code = Platelet) 34 133-450 [facility] SouthGcexozcBPCPWKMRTJ6449-96-49 18:08:00 Test Item Value Reference Range Interpretation Comments MPV (test code = MPV) 10.1 7.4-10.4 [facility] MAPXEIRGP8270-01-74 18:08:00 Test Item Value Reference Range Interpretation Comments Hgb A1C (test code = Hgb A1C) 6.9 [place] 697531-06-25 18:08:00 Test Item Value Reference Range Interpretation Comments Glucose Lvl (test code = Glucose Lvl) 175 70-99 [place] 697531-06-25 18:08:00 Test Item Value Reference Range Interpretation Comments BUN (test code = BUN) 27 7-22 [place] 697531-06-25 18:08:00 Test Item Value Reference Range Interpretation Comments Creatinine Lvl (test code = Creatinine 1.28 0.50-1.40 Lvl) [place] 697531-06-25 18:08:00 Test Item Value Reference Range Interpretation Comments Sodium Lvl (test code = Sodium Lvl) 141 135-145 [place] 697531-06-25 18:08:00 Test Item Value Reference Range Interpretation Comments Potassium Lvl (test code = Potassium 5.0 3.5-5.1 Lvl) [place] 697531-06-25 18:08:00 Test Item Value Reference Range Interpretation Comments Chloride Lvl (test code = Chloride Lvl) 106 95-109 [place] 697531-06-25 18:08:00 Test Item Value Reference Range Interpretation Comments CO2 (test code = CO2) 31 24-32 [place] 697531-06-25 18:08:00 Test Item Value Reference Range Interpretation Comments Calcium Lvl (test code = Calcium Lvl) 9.2 8.5-10.5 [place] 697531-06-25 18:08:00 Test Item Value Reference Range Interpretation Comments AGAP (test code = AGAP) 9.0 10.0-20.0 [place] 697531-06-25 18:08:00 Test Item Value Reference Range Interpretation Comments eGFR (test code = eGFR) 52 [place] 295061-06-25 18:08:00 Test Item Value Reference Range Interpretation Comments RBC Morph (test code = See Note (08/12/20 1:08 RBC Morph) PM) [place] 295061-06-25 18:08:00 Test Item Value Reference Range Interpretation Comments Plt Morph (test code = Clumped 1(08/12/20 1:08 Plt Morph) PM) [place] 295061-06-25 18:08:00 Test Item Value Reference Range Interpretation Comments Segs (test code = Segs) 48.2 45.0-75.0 [place] 295061-06-25 18:08:00 Test Item Value Reference Range Interpretation Comments Lymphocytes (test code = Lymphocytes) 39.0 20.0-40.0 [place] 295061-06-25 18:08:00 Test Item Value Reference Range Interpretation Comments Monocytes (test code = Monocytes) 11.6 2.0-12.0 [place] 295061-06-25 18:08:00 Test Item Value Reference Range Interpretation Comments Eosinophils (test code = 0.9 See_Comment [A utomated message] The Eosinophils) system which ge nerated this result tra nsmitted reference range : <=4.0. The reference r daniele was not used to int erpret this result as normal/abnormal . [place] 295061-06-25 18:08:00 Test Item Value Reference Range Interpretation Comments Basophils (test code = 0.3 See_Comment [Aut omated message] The Basophils) system which ge nerated this result tra nsmitted reference range : <=1.0. The reference r daniele was not used to int erpret this result as normal/abnormal . [facility]ERUEOMWTZ4233[facility]-62 18:08:00 Test Item Value Reference Range Interpretation Comments Neutrophils # (test code = Neutrophils 2.0 1.5-8.1 #) [place] 295061-06-25 18:08:00 Test Item Value Reference Range Interpretation Comments Lymphocytes # (test code = Lymphocytes 1.6 1.0-5.5 #) [place] 295061-06-25 18:08:00 Test Item Value Reference Range Interpretation Comments Monocytes # (test code 0.5 See_Comment [Aut omated message] The = Monocytes #) system which generated this result tra nsmitted reference range : <=0.8. The reference r daniele was not used to int erpret this result as normal/abnormal . [facility] CenterVwqxnujRJZVPDENZZ2410-46-83 18:08:00 Test Item Value Reference Range Interpretation Comments Schistocyte (test code = 1-3 per HPF Schistocyte) (08/12/20 1:08 PM) [place] 295061-06-25 18:08:00 Test Item Value Reference Range Interpretation Comments WBC (test code = WBC) 4.1 3.7-10.4 [facility] SouthYkoqiifSTYXMIYXRJ8083-92-66 18:08:00 Test Item Value Reference Range Interpretation Comments RBC (test code = RBC) 3.74 4.70-6.10 [facility]GwavnilXJQJDKRZAL0777-68-39 18:08:00 Test Item Value Reference Range Interpretation Comments Hgb (test code = Hgb) 11.6 14.0-18.0 [facility]OzxtbpoAPGYKEVQGL3864-15-00 18:08:00 Test Item Value Reference Range Interpretation Comments Hct (test code = Hct) 36.3 42.0-54.0 [facility] HospitalSivrvsmRTZFONSMXQ0061-36-26 18:08:00 Test Item Value Reference Range Interpretation Comments MCV (test code = MCV) 97.0 80.0-94.0 [facility] HospitalCqricicKCOQODTITL7944-71-56 18:08:00 Test Item Value Reference Range Interpretation Comments MCH (test code = MCH) 31.0 pg 27.0-31.0 [facility] HospitalTuyfuxoZMIBOTJUXN3999-95-17 18:08:00 Test Item Value Reference Range Interpretation Comments MCHC (test code = MCHC) 32.0 32.0-36.0 [facility] HospitalAcizxxrSRBSSLFJFS9277-29-26 18:08:00 Test Item Value Reference Range Interpretation Comments RDW (test code = RDW) 18.7 11.5-14.5 [facility] HospitalJtcasdmNYXFHUVBGC4151-95-92 18:08:00 Test Item Value Reference Range Interpretation Comments Platelet (test code = Platelet) 34 133-450 [facility] HospitalFvorbhrEUOHLWRAAR2294-35-36 18:08:00 Test Item Value Reference Range Interpretation Comments MPV (test code = MPV) 10.1 7.4-10.4 [facility] [id number] 18:08:00 Test Item Value Reference Range Interpretation Comments Hgb A1C (test code = Hgb A1C) 6.9 [facility] [id number] 18:08:00 Test Item Value Reference Range Interpretation Comments Glucose Lvl (test code = Glucose Lvl) 175 70-99 [facility] [id number] 18:08:00 Test Item Value Reference Range Interpretation Comments BUN (test code = BUN) 27 7-22 [facility] [id number] 18:08:00 Test Item Value Reference Range Interpretation Comments Creatinine Lvl (test code = Creatinine 1.28 0.50-1.40 Lvl) [place] 697531-06-25 18:08:00 Test Item Value Reference Range Interpretation Comments Sodium Lvl (test code = Sodium Lvl) 141 135-145 [place] 697531-06-25 18:08:00 Test Item Value Reference Range Interpretation Comments Potassium Lvl (test code = Potassium 5.0 3.5-5.1 Lvl) [place] 697531-06-25 18:08:00 Test Item Value Reference Range Interpretation Comments Chloride Lvl (test code = Chloride Lvl) 106 95-109 [place] 697531-06-25 18:08:00 Test Item Value Reference Range Interpretation Comments CO2 (test code = CO2) 31 24-32 [place] 697531-06-25 18:08:00 Test Item Value Reference Range Interpretation Comments Calcium Lvl (test code = Calcium Lvl) 9.2 8.5-10.5 [place] 697531-06-25 18:08:00 Test Item Value Reference Range Interpretation Comments AGAP (test code = AGAP) 9.0 10.0-20.0 [place] 697531-06-25 18:08:00 Test Item Value Reference Range Interpretation Comments eGFR (test code = eGFR) 52 [place] 295061-06-25 18:08:00 Test Item Value Reference Range Interpretation Comments RBC Morph (test code = See Note (08/12/20 1:08 RBC Morph) PM) [place] 295061-06-25 18:08:00 Test Item Value Reference Range Interpretation Comments Plt Morph (test code = Clumped 1(08/12/20 1:08 Plt Morph) PM) [place] 295061-06-25 18:08:00 Test Item Value Reference Range Interpretation Comments Segs (test code = Segs) 48.2 45.0-75.0 [place] [address]-06-25 18:08:00 Test Item Value Reference Range Interpretation Comments Lymphocytes (test code = Lymphocytes) 39.0 20.0-40.0 [place] 295061-06-25 18:08:00 Test Item Value Reference Range Interpretation Comments Monocytes (test code = Monocytes) 11.6 2.0-12.0 [facility]MltxsqxNHAGWWIXKL0637-48-58 18:08:00 Test Item Value Reference Range Interpretation Comments Eosinophils (test code = 0.9 See_Comment [A utomated message] The Eosinophils) system which ge nerated this result tra nsmitted reference range : <=4.0. The reference r daniele was not used to int erpret this result as normal/abnormal . [facility] CenterLdqnayqTUITGIDIMU1818-61-96 18:08:00 Test Item Value Reference Range Interpretation Comments Basophils (test code = 0.3 See_Comment [Aut omated message] The Basophils) system which ge nerated this result tra nsmitted reference range : <=1.0. The reference r daniele was not used to int erpret this result as normal/abnormal . [facility] CenterWtkjhdvCSGKRQSSXU7235-45-18 18:08:00 Test Item Value Reference Range Interpretation Comments Neutrophils # (test code = Neutrophils 2.0 1.5-8.1 #) [place] 295061-06-25 18:08:00 Test Item Value Reference Range Interpretation Comments Lymphocytes # (test code = Lymphocytes 1.6 1.0-5.5 #) [facility] CenterFbcesjkVBPGGGOFMR2419-03-39 18:08:00 Test Item Value Reference Range Interpretation Comments Monocytes # (test code 0.5 See_Comment [Aut omated message] The = Monocytes #) system which generated this result tra nsmitted reference range : <=0.8. The reference r daniele was not used to int erpret this result as normal/abnormal . [facility] CenterCwqjvfdOMJHPSDKHS3226-12-17 18:08:00 Test Item Value Reference Range Interpretation Comments Schistocyte (test code = 1-3 per HPF Schistocyte) (08/12/20 1:08 PM) [facility]
[2021-12-06] MEDS ORDERED: NA CHLORIDE 0.9% 500 ML ONE (20:56)
[2021-12-06] MEDS ORDERED: dilTIAZem HCL 25 MG/5 ML VIAL IV ONE (20:56)
--- NOTE | 2021-12-06 20:57 | RAD REPORT ---
EXAM DESCRIPTION: RAD - Chest Single View - 12/06/2021 8:47 pm CLINICAL HISTORY: Chest pain Chest pain. COMPARISON: Chest Single View dated 10/20/2021; Chest Pa And Lat (2 Views) dated 06/05/2021; Chest Sing le View dated 06/20/2020; Chest Pa And Lat (2 Views) dated 04/18/2020 FINDINGS: Portable technique limits examination quality. Mild pulmonary edema. The heart is moderately enlarged with sternotomy wires present. Small left pleu ral effusion. IMPRESSION: Mild CHF.
[2021-12-06 21:20] LABS: Absolute Lymphocytes (CBC) 89.7 K/uL (0.7-4.9); Hematocrit 31.6 % (39.6-49.0); Lymphocytes % 93.8 % (15.3-44.8); MCV 97.9 fL (80-100); MPV 7.1 fL (7.6-11.3); RBC Red Blood Cell Count 3.22 M/uL (4.33-5.43)
[2021-12-06 21:34] LABS: Potassium 4.5 mmol/L (3.5-5.1)
[2021-12-06 21:41] LABS: Troponin High Sensitivity 79.5 pg/mL (<58.9)
--- NOTE | 2021-12-06 22:22 | RAD REPORT ---
EXAM DESCRIPTION: CT - Chest For Pe Angio - 12/06/2021 10:01 pm CLINICAL HISTORY: Chest pain. SOB, elevated D-dimer, hx of CLL COMPARISON: Chest Abd Pelvis Wo Con dated 08/22/2021; Chest Abdomen Pelvis W Cont dated 05/01/2021 TECHNIQUE: CT angiogram of the pulmonary arteries was performed with MIP. All CT scans are performed using dose optimization technique as appropriate and may include automated exposure control or mA/KV adjustment according to patient size. FINDINGS: No evidence of pulmonary thromboembolism. Suboptimal contrast opacification of the aorta. No gross acute aortic finding. Adenopathy is present in both axilla and the mediastinum with mild improvement since 08/22/2021 study . Chronic loculated left pleural effusion is seen with atelectasis in the left lung base. Trace right p leural fluid. The lungs are emphysematous. Liver cysts are noted in the upper abdomen. IMPRESSION: No evidence of pulmonary thromboembolism. Mild improvement in visualized intrathoracic lymphadenopathy since 08/22/2021 study. Emphysema is present with loculated small left pleural effusion and atelectasis in the left lung base .
[2021-12-06 22:38] LABS: Albumin 3.1 g/dL (3.4-5.0); Bilirubin Direct 0.3 mg/dL (0-0.2); Bilirubin Total 0.8 mg/dL (0.2-1.0); Protein, Total 6.1 g/dL (6.4-8.2)
[2021-12-06] MEDS ORDERED: AMIODARONE HCL 150 MG/3 ML INJ IV ONE (22:45)
[2021-12-06] MEDS ORDERED: D5W 100 ML IV ONE (22:46)
--- NOTE | 2021-12-06 22:57 | ER ---
Nurse's Notes [facility] Name: Harry Almendarez Age: 81 yrs Sex: Male : 1940 Arrival Date: 12/06/2021 Time: 20:12 Bed 26 Private MD: Diagnosis: New Onset Atrial Fibrillation with Rapid Ventricular Response;Congestive Heart Failure Presentation: 12/06 20:27 Chief complaint: Patient states: Dr. Fields sent me to ER due to abnormal lab work - pt ld1 c/o SOB and chest pressure. Coronavirus screen: At this time, the client does not indicate any symptoms associated with coronavirus-19. 20:45 Chief complaint:. Ebola Screen: No symptoms or risks identified at this time. [facility] 20:45 Method Of Arrival: Wheelchair [facility] 20:45 Initial Sepsis Screen: Does the patient meet any 2 criteria? No. Patient's initial 3 sepsis screen is negative. Does the patient have a suspected source of infection? No. Patient's initial sepsis screen is negative. Risk Assessment: Do you want to hurt yourself or someone else? Patient reports no desire to harm self or others. Onset of symptoms was December 06, 2021. 20:45 Acuity: QUINTIN 3 eh3 Triage Assessment: 21:08 General: Appears in no apparent distress. comfortable, Behavior is calm, cooperative, ld1 appropriate for age. Pain: Denies pain. EENT: No signs and/or symptoms were reported regarding the EENT system. Neuro: Level of Consciousness is awake, alert, obeys commands, Oriented to person, place, time, situation. Cardiovascular: Capillary refill < 3 seconds Patient's skin is warm and dry. Cardiovascular: Rhythm is sinus tachycardia. Respiratory: Reports shortness of breath Airway is patent Respiratory effort is even, unlabored, Onset: The symptoms/episode began/occurred suddenly, the patient has moderate shortness of breath. Historical: - Allergies: 21:08 No Known Allergies; ld1 - PMHx: 21:08 CHF; Leukemia; Lymphoma; Kidney problems; ld1 21:10 Diabetes mellitus; ld1 - PSHx: 21:10 Double bypass; ld1 21:10 Thyroidectomy; ld1 21:13 Cholecystectomy; eh3 - Immunization history:: Adult Immunizations up to date, Client reports receiving the 2nd dose of the Covid vaccine. - Social history:: Smoking status: Patient denies any tobacco usage or history of. Patient/guardian denies using alcohol. Screenin:45 Abuse screen: Denies threats or abuse. Denies injuries from another. Nutritional eh3 screening: No deficits noted. Tuberculosis screening: No symptoms or risk factors identified. Fall Risk None identified. Assessment: 20:45 General: Appears in no apparent distress. comfortable, Behavior is calm, cooperative, eh3 appropriate for age. Pain: Denies pain. Neuro: Level of Consciousness is awake, alert, obeys commands, Oriented to person, place, time, situation. Cardiovascular: Capillary refill < 3 seconds Patient's skin is warm and dry. Cardiovascular:. Cardiovascular: Rhythm is SVT. Respiratory: Airway is patent Respiratory effort is even, labored. Respiratory: Breath sounds are coarse bilaterally. 21:45 Reassessment: Patient and/or family updated on plan of care and expected duration. Pain eh3 level reassessed. Patient is alert, oriented x 3, equal unlabored respirations, skin warm/dry/pink. 22:45 Reassessment: Patient and/or family updated on plan of care and expected duration. Pain eh3 level reassessed. Patient is alert, oriented x 3, equal unlabored respirations, skin warm/dry/pink. 23:45 Reassessment: Patient and/or family updated on plan of care and expected duration. Pain eh3 level reassessed. Patient is alert, oriented x 3, equal unlabored respirations, skin warm/dry/pink. 12/07 00:53 Reassessment: CONTACT: Celestina [phone]. eh3 Vital Signs: 12/06 20:27 BP 106 / 76; Pulse 124; Resp 17; Pulse Ox 99% on R/A; eh3 21:11 BP 106 / 76; Pulse 119; Resp 26; Pulse Ox 98% on R/A; Weight 83.46 kg; Height 5 ft. 11 ld1 in. (180.34 cm); 22:15 Pulse 122; Resp 22; Pulse Ox 98% on R/A; eh3 23:15 BP 110 / 71; Pulse 104; Resp 18; Pulse Ox 100% on R/A; eh3 12/07 01:21 BP 116 / 72; kl 12/06 21:11 Body Mass Index 25.66 (83.46 kg, 180.34 cm) ld1 ED Course: 12/06 20:12 Patient arrived in ED. bp1 20:17 Radha Duran MD is Attending Physician. sd2 20:32 EKG done, by ED staff, reviewed by Radha Duran MD. mb4 20:45 Marissa Sarmiento, RN is Primary Nurse. eh3 20:45 Patient has correct armband on for positive identification. Bed in low position. Call eh3 light in reach. Side rails up X2. Client placed on continuous cardiac and pulse oximetry monitoring. NIBP monitoring applied. Door closed. Noise minimized. Lights dimmed. Warm blanket given. 20:47 Triage completed. eh3 20:49 XRAY Chest (1 view) In Process Unspecified. EDMS 20:50 Inserted saline lock: 20 gauge in left forearm, using aseptic technique. kl 21:08 Arm band placed on right wrist. ld1 22:03 CT Chest For PE Angio In Process Unspecified. EDMS 22:40 Patient Financial Services Coordinator paged at 22:35. mw2 22:56 Db Hartley MD is Hospitalizing Provider. sd2 Administered Medications: 21:11 Drug: NS 0.9% 500 ml Route: IV; Rate: bolus; Site: right antecubital; eh3 22:00 Follow up: IV Status: Completed infusion; IV Intake: 500ml eh3 21:11 Drug: Cardizem (diltiazem) 10 mg Route: IVP; Site: right antecubital; eh3 22:24 Follow up: Response: No adverse reaction eh3 23:14 Drug: amiodarone 150 mg Volume: 100 ml; Route: IVPB; Infused Over: 10 mins; Site: right 3 antecubital; 23:24 Follow up: Response: No adverse reaction; IV Status: Completed infusion; IV Intake: eh3 100ml 23:30 Drug: amiodarone 900 mg, D5W 500 ml Route: IVPB; Rate: 1 mg/min; Site: right 3 antecubital; Intake: 22:00 IV: 500ml; Total: 500ml. eh3 23:24 IV: 100ml; Total: 600ml. eh3 Outcome: 22:57 Decision to Hospitalize by Provider. sd2 12/07 02:22 Patient left the ED. mw2 Signatures: Dispatcher [employer] EDMS Sheila Danielsberly, RN RN [facility], [facility] mw2 [place] mb4 Carlota Villalpando Lauren, RN RN ld1 Marissa Sarmiento RN RN eh3 Radha Duran MD MD sd2
--- NOTE | 2021-12-06 22:58 | EDPHYS ---
Physician Documentation [facility] Name: Harry Almendarez Age: 81 yrs Sex: Male : 1940 Arrival Date: 12/06/2021 Time: 20:12 Bed 26 Private MD: ED Physician Radha Duran HPI: 12/06 21:42 This 81 yrs old Male presents to ER via Wheelchair with complaints of Shortness Of sd2 Breath. 21:42 81-year-old male sent by Dr. Fields, oncology, for shortness of breath and elevated sd2 D-dimer. He has a history of CLL with a chronically elevated white blood cell count. The patient reports he has had ongoing shortness of breath for about 2 months that is unchanged per his report. He reports he has intermittent chest pain which has been thoroughly evaluated by his specialist including his stock parts inspector and found to not be related to his heart. He was found to have an elevated heart rate at the oncologist office as well and thought to possibly be in atrial fibrillation. The patient has no prior history of atrial fibrillation. He states he just noticed his heart rate was high today. When he was monitoring his heart rate at home, it was in the 60s per a pulse oximeter. The patient is not currently on any blood thinners and denies any prior history of blood clots.. Historical: - Allergies: 21:08 No Known Allergies; ld1 - PMHx: 21:08 CHF; Leukemia; Lymphoma; Kidney problems; ld1 21:10 Diabetes mellitus; ld1 - PSHx: 21:10 Double bypass; ld1 21:10 Thyroidectomy; ld1 21:13 Cholecystectomy; eh3 - Immunization history:: Adult Immunizations up to date, Client reports receiving the 2nd dose of the Covid vaccine. - Social history:: Smoking status: Patient denies any tobacco usage or history of. Patient/guardian denies using alcohol. ROS: 21:42 Constitutional: Negative for fever, chills, and weight loss, Eyes: Negative for injury, sd2 pain, redness, and discharge, Cardiovascular: Positive for chest pain, palpitations, Negative for edema, Respiratory: Positive for shortness of breath, Negative for cough, wheezing. Abdomen/GI: Negative for abdominal pain, nausea, vomiting, diarrhea. MS/Extremity: Negative for injury and deformity, Skin: Negative for injury, rash, and discoloration, Neuro: Negative for headache, numbness and tingling. Exam: 21:42 Constitutional: This is a well developed, well nourished patient who is awake, alert, sd2 and in no acute distress. Head/Face: Normocephalic, atraumatic. Eyes: EOMI, normal conjunctiva bilaterally Chest/axilla: Normal chest wall appearance and motion. Nontender with no deformity. Cardiovascular: Tachycardic rate and irregularly irregular rhythm with a normal S1 and S2. No gallops, murmurs, or rubs. 2+ distal pulses. Respiratory: Lungs have equal breath sounds bilaterally, clear to auscultation and percussion. No rales, rhonchi or wheezes noted. No increased work of breathing, no retractions or nasal flaring. Abdomen/GI: Soft, non-tender, with normal bowel sounds. No guarding or rebound. No evidence of tenderness throughout. Skin: Warm, dry with normal turgor. Normal color with no rashes, no lesions, and no evidence of cellulitis. MS/ Extremity: Pulses equal, no cyanosis. Neurovascular intact. Full, normal range of motion. Ambulatory without difficulty. Psych: Awake, alert, with orientation to person, place and time. Behavior, mood, and affect are within normal limits. 21:42 ECG was reviewed by the Attending Physician. A-fib w/RVR, rate 132, no STEMI criteria, sd2 LBBB present Vital Signs: 20:27 BP 106 / 76; Pulse 124; Resp 17; Pulse Ox 99% on R/A; eh3 21:11 BP 106 / 76; Pulse 119; Resp 26; Pulse Ox 98% on R/A; Weight 83.46 kg; Height 5 ft. 11 ld1 in. (180.34 cm); 22:15 Pulse 122; Resp 22; Pulse Ox 98% on R/A; eh3 23:15 BP 110 / 71; Pulse 104; Resp 18; Pulse Ox 100% on R/A; eh3 12/07 01:21 BP 116 / 72; kl 12/06 21:11 Body Mass Index 25.66 (83.46 kg, 180.34 cm) ld1 MDM: 12/06 20:17 Patient medically screened. sd2 22:55 Differential diagnosis: Differential diagnosis includes but is not limited to: ACS, sd2 DVT/PE, pneumothorax, dissection, musculoskeletal, anxiety, anemia, electrolyte abnormality, pneumonia, CHF, COPD among others. Data reviewed: vital signs, nurses notes, lab test result(s), EKG, radiologic studies. Counseling: I had a detailed discussion with the patient and/or guardian regarding: the historical points, exam findings, and any diagnostic results supporting the discharge/admit diagnosis, lab results, radiology results, the need for further work-up and treatment in the hospital. ED course: Discussed case with Dr. Poole and Dr. Hartley. Pt to be admitted on amiodarone drip at this time. . 12/06 20:31 Order name: Basic Metabolic Panel; Complete Time: 22:33 ph 12/06 20:31 Order name: CBC with Diff; Complete Time: 21:41 ph 12/06 20:31 Order name: Troponin HS; Complete Time: 22:33 ph 12/06 20:52 Order name: Hepatic Function; Complete Time: 23:09 sd2 12/06 20:52 Order name: BNP; Complete Time: 23:09 sd2 12/07 01:17 Order name: SARS RAPID kl 12/06 20:31 Order name: XRAY Chest (1 view); Complete Time: 21:41 ph 12/06 20:31 Order name: EKG; Complete Time: 20:31 ph 12/06 20:52 Order name: CT Chest For PE Angio; Complete Time: 22:33 sd2 12/07 01:55 Order name: SARS-COV-2 Antigen Rapid EDMS 12/06 20:31 Order name: Cardiac monitoring; Complete Time: 20:31 ph 12/06 20:31 Order name: EKG - Nurse/Tech; Complete Time: 20:31 ph 12/06 20:31 Order name: IV Saline Lock; Complete Time: 20:53 ph 12/06 20:31 Order name: Labs collected and sent; Complete Time: 21:11 ph 12/06 20:31 Order name: O2 Per Protocol; Complete Time: 20:53 ph 12/06 20:31 Order name: O2 Sat Monitoring; Complete Time: 20:53 ph Administered Medications: 21:11 Drug: NS 0.9% 500 ml Route: IV; Rate: bolus; Site: right antecubital; eh3 22:00 Follow up: IV Status: Completed infusion; IV Intake: 500ml 3 21:11 Drug: Cardizem (diltiazem) 10 mg Route: IVP; Site: right antecubital; 3 22:24 Follow up: Response: No adverse reaction 3 23:14 Drug: amiodarone 150 mg Volume: 100 ml; Route: IVPB; Infused Over: 10 mins; Site: right 3 antecubital; 23:24 Follow up: Response: No adverse reaction; IV Status: Completed infusion; IV Intake: eh3 100ml 23:30 Drug: amiodarone 900 mg, D5W 500 ml Route: IVPB; Rate: 1 mg/min; Site: right 3 antecubital; Disposition Summary: 12/06/21 22:57 Hospitalization Ordered Hospitalization Status: Inpatient Admission sd2 Provider: Db Hartley sd2 Condition: Stable sd2 Problem: new sd2 Symptoms: have improved sd2 Bed/Room Type: [facility] Location: Intensive Care Unit(12/07/21 01:13) Room Assignment: -(12/07/21 01:13) Diagnosis - New Onset Atrial Fibrillation with Rapid Ventricular Response sd2 - Congestive Heart Failure sd2 Forms: - Medication Reconciliation Form sd2 - SBAR form sd2 Signatures: Dispatcher [employer] EDKalina Graham RN RN kl Hall, Patricia RN Jessica Chavira ph, RN RN Ellyn Rodriguez RN RN ld1 Hall, Erin, RN RN 3 Radha Duran MD MD sd2 Corrections: (The following items were deleted from the chart) 23:41 22:57 Telemetry/MedSurg (Inpatient) sd2 cg 23:41 22:57 sd2 cg 12/07 01:13 12/06 23:41 [facility] ER HOLD [facility] 12/07 01:13 12/06 23:41 ERHOLD- [facility]
[2021-12-06] MEDS ORDERED: ACETAMINOPHEN 500 MG TAB PO PRN (22:59)
[2021-12-06] MEDS ORDERED: ONDANSETRON 4 MG/2 ML VIAL IV PRN (22:59)
[2021-12-06] MEDS ORDERED: AMIODARONE IN DEXTROSE,ISO-OSM 360 MG/200 ML BAG IV ONE (23:04)
[2021-12-07 01:55] LABS: SARS-CoV-2 Antigen Rapid Res Negative (Negative)
[2021-12-07] MEDS ORDERED: AMIODARONE HCL 900 MG in Dextrose 5%-Water 482 ML IV SCH ×2 (02:00→08:01)
[2021-12-07 02:25] LABS: Absolute Lymphocytes (CBC) 91.7 K/uL (0.7-4.9); Hematocrit 30.8 % (39.6-49.0); Lymphocytes % 94.4 % (15.3-44.8); MCV 97.9 fL (80-100); MPV 9.3 fL (7.6-11.3); RBC Red Blood Cell Count 3.14 M/uL (4.33-5.43)
[2021-12-07 02:41] LABS: Anisocytosis 2+; Blood Morphology Comment NOTED (NOT SEEN); Hypochromasia 1+; Ovalocytes 2+; Platelet Estimate DECR; Teardrop Cell 1+
[2021-12-07 02:42] LABS: Stomatocytes 1+
[2021-12-07 03:01] LABS: Albumin 3.3 g/dL (3.4-5.0); Bilirubin Total 0.8 mg/dL (0.2-1.0); Potassium 4.4 mmol/L (3.5-5.1)
[2021-12-07] MEDS ORDERED: AMIODARONE HCL 150 MG/3 ML INJ IV ONE (03:14)
[2021-12-07 03:55] VITALS: BMI 26.5
--- NOTE | 2021-12-07 16:15 | EKG ---
Test Date: 2021-12-06 Test Time: 20:32:24 [place]: ZULMA MEASUREMENT RESULTS: Intervals: Rate: 124 [place]: QRSD: 134 QT: 342 QTc: 491 [place]: P: [place]: QRS: -54 T: 105 INTERPRETIVE STATEMENTS: Afib with RVR. Left axis deviation Left bundle branch block Abnormal ECG Compared to ECG 10/20/2021 11:20:22 Left-axis deviation now present Left bundle-branch block now present Sinus bradycardia no longer present T-wave abnormality no longer present Possible ischemia no longer present Electronically Signed On 12-07-21 16:14:07 CDT by Deven Poole
[2021-12-07] MEDS: APIXABAN 2.5 MG TABLET PO SCH ×2 (17:15→19:17)
--- NOTE | 2021-12-07 19:49 | P.HP ---
Certification for Inpatient Patient admitted to: Inpatient With expected LOS: >2 Midnights Practitioner: I am a practitioner with admitting privileges, knowledge of patient current condition, hospital course, and medical plan of care. Services: Services provided to patient in accordance with Admission requirements found in Title 42 Section 412.3 of the Code of Federal Regulations Patient History Date of Service: 12/07/21 Reason for admission: RAPID A FIB History of Present Illness: MR SHUKLA HAS MDS AND WAS SEEN BY DR SANTIAGO AND ADMITTED HE HAD RAPID A FIB. HE IS STABLE, WITH IV AMIODARONE IN ICU. Allergies No Known Allergies Allergy (Verified 11/30/21 09:33) Home medications list reviewed: Yes Home Medications: Aspirin 81 mg PO DAILY 04/18/20 Atorvastatin Calcium 40 mg PO DAILY 04/18/20 Carvedilol [Coreg] 25 mg PO DAILY 04/18/20 Fenofibrate [Tricor*] 145 mg PO DAILY 04/18/20 Levothyroxine Sodium [Levothyroxine] 100 mcg PO DAILY 04/18/20 Potassium Chloride [Klor-Con 10] 10 meq PO DAILY #90 tablet.er 04/18/20 Cholecalciferol (Vitamin D3) [Vitamin D3] 2,000 unit PO DAILY 02/13/21 Furosemide 1 mg PO BID 02/13/21 Glimepiride [Amaryl] 2 mg PO DAILY 02/13/21 Pantoprazole [Protonix Tab] 40 mg PO DAILY 02/13/21 Famotidine 40 mg PO BEDTIME 10/20/21 Tizanidine HCl [Zanaflex] 4 mg PO BEDTIME 10/20/21 Allopurinol 1 tab PO DAILY 12/07/21 Epoetin Ez-Epbx [Retacrit] 1,000 unit IJ 12/07/21 Ibrutinib [Imbruvica] 280 mg PO DAILY 12/07/21 Nitroglycerin 0.4 mg SL PRN 12/07/21 Ondansetron [Zofran] 4 mg PO Q6H PRN 12/07/21 Sulfamethoxazole/Trimethoprim [Sulfamethoxazole-Tmp Ds Tablet] See Rx Instructions .ROUTE .COMPLEX 12/07/21 Valacyclovir HCl [Valacyclovir] 1 tab PO DAILY 12/07/21 - Past Medical/Surgical History Has patient received pneumonia vaccine in the past: No Diabetic: Yes -: Leukemia -: CAD -: DM,ON CHOLETROL MED -: HTN HYPERTHYROID DOUBLE BYPAS SURGERY -: CHF -: NON-HODGKINS LYMPHOMA -: BACK, NECK, SHOULDER SX -: ONE SIDE THYROID REMOVAL -: DBL BYPASS - Family History Father -: Heart disease Mother -: Heart disease, Cancer Sister -: Kidney disease - Social History Smoking Status: Former smoker Alcohol use: No CD- Drugs: No Caffeine use: Yes Place of Residence: Home Review of Systems 10-point ROS is otherwise unremarkable General: Weakness, Malaise Physical Examination - Vital Signs Temperature: 97.1 F Blood Pressure: 115/77 Pulse: 106 Respirations: 19 Pulse Ox (%): 99 - Physical Exam General: Oriented x3, Mild distress HEENT: Atraumatic, PERRLA, Mucous membr. moist/pink, EOMI, Sclerae nonicteric Neck: Supple, 2+ carotid pulse no bruit, No LAD, Without JVD or thyroid abnormality Respiratory: Clear to auscultation bilaterally, Normal air movement Cardiovascular: Irregular heart rate/rhythm Gastrointestinal: Normal bowel sounds, No tenderness Musculoskeletal: No tenderness Integumentary: No rashes Neurological: Normal gait, Normal speech, Normal strength at 5/5 x4 extr, Normal tone, Normal affect Lymphatics: No axilla or inguinal lymphadenopathy - Studies Laboratory Data (last 24 hrs) 12/06/21 20:57: Total Bilirubin 0.8, AST 26, ALT 25, Alkaline Phosphatase 75 12/06/21 20:57: WBC 95.60 H*, Hgb 9.6 L, Hct 31.6 L, Plt Count 12 L* 12/06/21 20:57: Sodium 137, Potassium 4.5, BUN 34 H, Creatinine 1.66 H, Glucose 187 H Assessment and Plan - Problems (Diagnosis) (1) Rapid atrial fibrillation Current Visit: Yes Status: Acute Plan: AMIODAREONE ORAL ANTICOAGULATION . DR DILLON ON CASE. MAY CONVERT WITH THIS MEDS. IF NOT WILL NEED CARDIOVERSION. MAY GO HOME IN AM. - Advance Directives Does patient have a Living Will: No Does patient have a Durable POA for Healthcare: Yes
--- NOTE | 2021-12-07 22:03 | CON ---
Date of Consultation: 12/07/2021 Reason For Consultation: Atrial fibrillation. History Of Present Illness: This is an 81-year-old male with history of diabetes, hypertension, norma estive heart failure, non-Hodgkin lymphoma, dyslipidemia, and hypothyroidism [facility]ations and mild shortness of breath with activities. Does not have any carlo chest pain. No nausea, vomiting, or diarrhea. No dysuria, polyuria, or urgency. Seen by bedside. Started him on amiodarone drip. His heart rate is still running fast, the drip was started earlier t guera around 5:30 in the morning. Past Medical History: As outlined above in the HPI. Medications: Refer to reconciliation sheet for detailed list. Allergies: NO KNOWN DRUG ALLERGIES. Family History: No premature coronary artery disease or cancer. Social History: Does not smoke or drink. Does not use any drugs. Review of Systems: All systems reviewed and are negative except for what is mentioned in HPI. Physical Examination: Vital Signs: Reviewed. Head And Neck: Pupils are equal and reactive to light. Intact eye movements. No JVD. No cervical lymphadenopathy. Neck: Supple. Thyroid is not enlarged. Lungs: Clear to auscultation bilaterally. No rhonchi, wheezing, or crackles. No accessory muscle u se. Heart: Irregularly irregular. No extra sounds. Abdomen: Soft, nontender. Bowel sounds positive. No organomegaly. No masses or hernia. No rigidi ty or rebound. Extremities: No clubbing or cyanosis. Intact pulses. Positive edema. Skin: No rashes. Neurologic: Alert, awake, and oriented x3. No acute focal deficits appreciated. Investigations: BUN 33, creatinine 1.56. His troponin initial was 79.5. NT-proBNP is 26,767. Hemo globin is 9.2 and white blood cell count is 97,000. Assessment And Recommendations: 1.Atrial fibrillation with rapid ventricle response. Continue amiodarone for full 24 hours load and if he does not convert to sinus rhythm, we will plan to do a YOVANY guided cardioversion. The patient has significant systolic heart failure and is not tolerating the atrial fibrillation. 2.Severe systolic heart failure, known to have low ejection fraction and significant coronary artery disease. I will plan on converting him to sinus rhythm. 3.Elevated troponin. The patient had a recent catheterization done by Dr. Ponce in May and he h ad severe coronary artery disease, but patent graft and Dr. Ponce recommended medical management at that time. I will trend one more set of cardiac enzyme today. For the atrial fibrillation, I agree with Eliquis 2.5 mg twice a day for stroke prevention. SR/MODL Voice ID: [id number] Report ID: [id number]
[2021-12-08] MEDS: AMIODARONE HCL 200 MG TAB PO SCH ×2 (06:10→18:25)
[2021-12-08] MEDS: APIXABAN 2.5 MG TABLET PO SCH ×2 (08:08→18:25)
[2021-12-08 10:48] LABS: Protime INR 1.42
[2021-12-08] MEDS ORDERED: FLUMAZENIL 0.1 MG/ML (5 mL VIAL) IV ONE (11:09)
[2021-12-08] MEDS ORDERED: FENTANYL CITR 100 MCG/2 ML ONE (11:09)
[2021-12-08] MEDS ORDERED: MIDAZOLAM HCL 5 ML ONE (11:09)
[2021-12-08] MEDS ORDERED: PHENOL 1.4% ORAL SPRAY 180ML ONE (11:09)
[2021-12-08] MEDS ORDERED: ATROPINE SULF 1 MG/10 ML SYR IV ONE (11:10)
[2021-12-08] MEDS ORDERED: HYDRALAZINE HCL 20 MG/ML VIAL ONE (11:10)
[2021-12-08] MEDS ORDERED: METOPROLOL TARTRATE 5 MG/5 ML INJ IV ONE (11:10)
[2021-12-08] MEDS ORDERED: NA CHLORIDE 0.9% 500 ML ONE (11:33)
--- NOTE | 2021-12-08 12:13 | P.PN ---
Subjective Date of Service: 12/08/21 Chief Complaint: RAPID A FIB Subjective: Improving JENNIE IS STABLE WITH A FIB. DR. ROWLEY WILL CONVERT IT TO NSR WITH CARDIOVERSION, HE WILL CONTINUE ON AMIODARONE AFTER THAT. HE MAY GO HOME TODAY IF OKAY WITH DR. ROWLEY. Physical Examination - Vital Signs Temperature: 97.2 F Blood Pressure: 97/70 Pulse: 106 Respirations: 22 Pulse Ox (%): 100 - Physical Exam General: Alert, In no apparent distress HEENT: Atraumatic, PERRLA, EOMI Neck: Supple, JVD not distended Respiratory: Clear to auscultation bilaterally, Normal air movement Cardiovascular: Irregular heart rate/rhythm Gastrointestinal: Normal bowel sounds, No tenderness Musculoskeletal: No tenderness Integumentary: No rashes Neurological: Normal speech, Normal tone, Normal affect Lymphatics: No axilla or inguinal lymphadenopathy - Studies Medications List Reviewed: Yes Assessment And Plan - Current Problems (Diagnosis) (1) Rapid atrial fibrillation Current Visit: Yes Status: Acute Plan: AMIODAREONE ORAL ANTICOAGULATION . DR DILLON ON CASE. MAY CONVERT WITH THIS MEDS. IF NOT WILL NEED CARDIOVERSION. MAY GO HOME IN AM.
[2021-12-08 15:28] VITALS: O2SAT 96
[2021-12-08 16:44] VITALS: BP 120/65; TEMP 97.6
[2021-12-08] MEDS ORDERED: METOPROLOL TAR 25 MG TAB PO SCH (18:00)
--- NOTE | 2021-12-08 19:08 | PN ---
Date of Progress Note: 12/08/2021 Subjective: Seen by bedside. Continues to be in atrial fibrillation despite the load of amiodarone, and heart rate is running still fast. Does not have any chest pain, but has shortness of breath on minimal exertion. Review of Systems: No chest pain or shortness of breath. No nausea, vomiting, diarrhea. No abdominal pain, nausea, or urinary urgency. All other systems reviewed and they are negative. Physical Examination: Vital Signs: Reviewed. Head ane Neck: Pupils are equal and reactive to light. Intact eye movements. No JVD. No cervical lymphadenopathy. Neck: Supple. Thyroid is not enlarged. Lungs: Clear to auscultation bilaterally. No rhonchi, wheezing, or crackles. No accessory muscle u se. Heart: Irregularly irregular. No extra sounds. Abdomen: Soft, nontender. Bowel sounds positive. No organomegaly. No masses or hernia. No rigidi ty or rebound. Extremities: No clubbing, cyanosis. Intact pulses. Skin: No rash. Neurologic: Alert, awake, oriented x3. No acute focal deficits appreciated. Investigation: Labs reviewed. Assessment And Recommendation: Atrial fibrillation with rapid ventricular response who was loaded wi th amiodarone to switch it now to 200 mg twice a day by mouth. Introduce metoprolol 25 mg twice a day, Eliquis 5 mg twice a day and plan for YOVANY-guided cardioversion later today. SR/MODL Voice ID: [id number] Report ID: [id number]
--- NOTE | 2021-12-08 21:08 | OP ---
Date of Procedure: 12/08/2021 Surgeon: MARISELA ROWLEY Procedures Performed: 1.Transesophageal echocardiogram. 2.Electrical cardioversion of atrial fibrillation to sinus rhythm, guided by the transesophageal ech ocardiogram. Indication: Atrial fibrillation with rapid ventricle response, hard to control the rate. Description Of Procedure: After risks, benefits, and alternatives were explained, the patient agreed to the procedure and signed informed consent. The patient then at the bedside in the ICU, after pro per time-out, we used local lidocaine to numb the back of the throat, and then, inserted the YOVANY prob e appropriately without difficulties and YOVANY was performed. The appendage was clear of thrombus. Light bsequently, we charged the paddles to 200 joules in synchronized manner. Electrical cardioversion wa s performed successfully and converted the rhythm into sinus rhythm with frequent PVCs. Conclusion: Successful YOVANY-guided cardioversion. Plan: Continue amiodarone 200 mg b.i.d. and start metoprolol 25 mg twice a day. SR/MODL Voice ID: [id number] Report ID: [id number]
--- NOTE | 2021-12-09 16:59 | EKG ---
Test Date: 2021-12-06 Test Time: 20:34:54 [place]: ZULMA MEASUREMENT RESULTS: Intervals: Rate: 132 [place]: QRSD: 130 QT: 342 QTc: 506 [place]: P: [place]: QRS: -53 T: 104 INTERPRETIVE STATEMENTS: Atrial fibrillation with rapid ventricular response with premature ventricular or aberrantly conducted complexes Left axis deviation Left bundle branch block Abnormal ECG Compared to ECG 12/06/2021 20:32:24 Ventricular premature complex(es) now present Electronically Signed On 12-09-21 16:54:58 CDT by Deven Poole
--- NOTE | 2021-12-11 08:01 | TEE ---
TRANSESOPHAGEAL ECHOCARDIOGRAM REPORT CARDIOLOGY DEPARTMENT DATE OF STUDY: 12/08/2021 HEIGHT: 5 ft, 11 in WEIGHT: 190 lbs DIAGNOSIS: ATRIAL FIBRILLATION WITH RAPID VENRICULAR RESPONSE CERTIFIED MEDICAL TRANSCRIPTIONIST COMMENTS: TRANSESPOHAGEAL ECHOCARDIOGRAM CARDIAC HISTORY: CATHERIZATION: SURGERY: PROSTHETIC VALVE: PACEMAKER: 2 DIMENSIONAL ASSESSMENT: RIGHT ATRIUM: NORMAL LEFT ATRIUM: NORMAL RIGHT VENTRICLE: NORMAL LEFT VENTRICLE: DEPRESSED LEFT VENTRICULAR EJECTION FRACTION TRICUSPID VALVE: NORMAL MITRAL VALVE: NORMAL PULMONIC VALVE: NORMAL AORTIC VALVE: NORMAL PERICARDIAL EFFUSION: NONE AORTIC ROOT: NORMAL EJECTION FRACTION: 25-30 % LEFT VENTRICULAR WALL MOTION: SEVERE GLOBAL HYPOKINESIS DOPPLER/COLOR FLOW: SEE BELOW COMMENTS: SEVERELY DEPRESSED LEFT VENTRICULAR EJECTION FRACTION 25-30%. NO LEFT ATRIAL APENDAGE THROMBUS IS SEEN. TECHNOLOGIST: SMITA DELUCA
== END 2021-12-08 18:30 | disposition home or self-care (01) | DRG 309 ==
LOC: ER 20:10 → ERHOLD 23:02 → 3RD-ICU 12-07 01:14
PROVIDERS: ADMIT Internal Medicine; ATTEND Internal Medicine
PROC: 5A2204Z Restoration of Cardiac Rhythm, Single (ICD-10-PCS; principal; 2021-12-08)
DX: I48.91 Unspecified atrial fibrillation (principal); I50.22 Chronic systolic (congestive) heart failure; I11.0 Hypertensive heart disease with heart failure; E11.9 Type 2 diabetes mellitus without complications; E78.5 Hyperlipidemia, unspecified; E03.9 Hypothyroidism, unspecified; I25.10 Atherosclerotic heart disease of native coronary artery without angina pectoris; R77.8 Other specified abnormalities of plasma proteins; Z90.49 Acquired absence of other specified parts of digestive tract; Z79.82 Long term (current) use of aspirin; Z79.84 Long term (current) use of oral hypoglycemic drugs; Z79.890 Hormone replacement therapy; Z79.899 Other long term (current) drug therapy; Z87.891 Personal history of nicotine dependence; Z20.822 Contact with and (suspected) exposure to COVID-19
CPT/HCPCS: 36415; 71045; 71275; 80048; 80053; 80076; 82947; 83615; 83880; 84484; 85025; 85049; 85379; 85610; 85730; 87811; 92960; 93005; 93312; 94760; 96361; 96374; 96375; 99284; J0282; J0360; J2250; J3010; J7040; J7060; Q9967

== ENCOUNTER 2021-12-11 13:25 | Inpatient (IN) | payer OTHER ==
--- OUTSIDE RECORDS SUMMARY | 2021-12-11 13:29 | XMS REPORT | Continuity of Care Document ---
:1940 Author Organization [facility] t Address [address] [place] [address] Care Team Providers Name Role Phone Db [...] 00:00: Toby rodarte Y Y Active 08/09/2020 [facility] LUMBAR LUMBAR Diagnosis Active 2020-08-11 Me moria DECOMPRESS DECOMPRESS - 10:14:00 l ION, L3-4 ION, L3-4 00:00: Herm heidi Active 00 08/09/2020 [facility] Diabetes Diabetes Problem Active 2020-08-19 Memoria mellitus [facility] Resolve 2020-08-19 M emoria function function d 22:12:26 l tests tests Uri abnormal abnormal (finding) (finding) Resolved Problem 08/19/2020 [facility] Chronic Chronic Problem Active 2020-08-19 Me moria back pain back pain 22:12:26 l (disorder) (disorder) He rmann Active Problem 08/19/2020 [facility] 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 Social History Social Habit Start Date Stop Date Quantity Comments Source History of Occasional tobacco Method ist tobacco use smoker [facility] Social History 2020-08-10 2020-08-10 [facility] kenneth 15:24:59 15:24:59 Sex [birth year] [place] 00:00:00 00:00:00 [facility] Smoking Status Start Date Stop Date Source Occasional tobacco smoker 2019-10-07 00:00:[address] [facility] Medications Ordered Filled Start Stop Current [...] n 6-30 (Same as: l 14:00: Lipitor) [place] Vitamin D3 No Notes: Memor ia 2000 intl 6-30 Same as : l units oral 14:00: Vitamin D3 H ermann tablet 00 Farxiga No 10 mg, 1 Memori a 6-30 tab, l 14:00: Route: PO, [place] 00 Drug form: TAB, Daily, Dosing Weight [...] (Same As: Coreg) Hydralazine No 10 mg, Olrenzo [place] 6-30 Route: IV, l 00:31: ONCE, [...] oria ne 08-17 Route: l 00:24: IVP, [place] 00 Q5Min, Dosing Weight 81.051, kg, PRN [...] ia 6-30 Route: l 00:24: IVP, ONCE, Uri 00 Dosing Weight 81.051, kg, PRN Nausea [...] [place] 630 Route: l 00:24: IVP, PRN, [place] 00 Dosing Weight 81.051, kg, PRN Benzodiaze pine Reversal, Initial dose, Start date: 08/16/20 19:24:00 CDT, Duration: 30 day, Stop date: 09/15/20 19:23:00 CDT Naloxone 2020-0 No 0.4 mg, Memori a 630 Route: l 00:24: IVP, [place] 00 Q2MIN, Dosing Weight 81.051, kg, PRN [...] gm, Memoria 08-16 Route: l 23:00: IVPB, [place] 00 [id number], Dosing Weight 81.051, kg, Start date: 08/16/20 18:00:00 CDT, Duration: 1 day, Stop date: 08/17/20 10:00:00 CDT, ABX Indication : Surgical Prophylaxi s GlipiZIDE No Notes: Memori a XL 10 mg 6-29 (Same as: l oral 22:46: Glucotrol) Uri tablet, 00 30 min extended before release meals. GlipiZIDE No Notes: Memori a XL 10 mg 6-29 (Same as: l oral 22:46: Glucotrol) Uri [...] 10 MG Oral hen. Tablet (Same as: [[place] 10/325] 325/10) Zofran No Notes: Memoria 6-29 (Same as: l 22:40: Zofran) [place] 00 MEDICATION WASTE Product Size: 4 mg [...] 10 MG Oral hen. (Same Tablet as: [place] [[place] 325/10) 10/325] Zofran No Notes: Memoria 08-16 [...] 08-16 Rate: 75 l 0.0014 20:16: ml/hr, Uri MEQ/ML / 00 Infuse Potassium over: 13.3 Chloride hr, Route: 0.004 IV, Dosing MEQ/ML / Weight Sodium 81.051 kg, Chloride Total 0.103 Volume: MEQ/ML / 1,000, Sodium Start Lactate date: 0.028 08/16/20 MEQ/ML 15:16:00 Injectable CDT, Solution Duration: 30 day, Stop date: 09/15/20 15:15:00 CDT, BSA: 2.02 m2, 0 Calcium No 1,000 mL, Memor ia Chloride 08-16 Rate: 75 l 0.0014 20:16: ml/hr, [place] MEQ/ML / 00 Infuse Potassium over: 13.3 [...] -23 tab, PO, l tablet 15:12: Daily [place] 00 Klor-Con 10 Yes 10 mEq, Mem oria 08-10 PO, Daily l 15:11: [place] 00 dapaglifloz Yes 10 mg = 1 [...] 6-23 tab, PO, l Tablet 15:10: Daily [place] sacubitril Yes 1 tab, PO, M emoria 49 MG / 6-23 BID l valsartan 15:10: Uri 51 MG Oral 00 Tablet [Entresto] Furosemide Yes 40 mg = 1 Me moria 40 MG Oral 6-23 tab, PO, l Tablet 15:10: Daily [place] 00 sacubitril Yes 1 tab, PO, M emoria 49 MG / 6-23 BID l valsartan 15:10: Uri 51 MG Oral 00 Tablet [Entresto] Fenofibrate Yes 145 mg = 1 Memoria 145 MG Oral 6-23 tab, PO, l Tablet 15:09: Daily GlipiZIDE Yes 10 mg = 1 Mem oria XL 10 mg 6-23 tab, PO, l oral 15:09: Daily, PRN Uri tablet, 00 GLUCOSE, extended WHEN BS IS [...] tab, PO, l oral 15:09: Daily, PRN [place] tablet, 00 GLUCOSE, extended WHEN BS IS [...] 6-23 tab, PO, l Coated 15:08: Daily [place] Tablet 00 carvedilol Yes 12.5 mg = [...] Diastolic (mm Hg) 2020-08-17 17:48:28 Mem orial [place] Heart Rate 2020-08-17 17:48:28 [facility] Uri Systolic (mm Hg) 2020-08-17 17:48:28 Lorenzo rial Uri Respitory Rate 2020-08-17 17:48:00 Jw al [place] Temperature Oral (F) 2020-08-17 17:47:51 97.6 F [facility] Uri Heart Rate 2020-08-17 13:10:21 [facility] Systolic (mm Hg) 2020-08-17 13:10:14 Lorenzo rial [place] Diastolic (mm Hg) 2020-08-17 13:10:14 Mem orial [place] Temperature Oral (F) 2020-08-17 13:10:10 98.1 F [facility] Systolic (mm Hg) 2020-08-17 09:11:00 Lorenzo rial [place] Diastolic (mm Hg) 2020-08-17 09:11:00 Mem orial Uri Respitory Rate 2020-08-17 09:03:40 Memori al Uri Temperature Oral (F) 2020-08-17 09:02:43 97.9 F Memorial [place] Respitory Rate 2020-08-17 04:39:50 Memori al [place] Height 2020-08-17 03:19:00 180.34 cm Memorial [place] Weight 2020-08-17 03:19:00 [facility] Uri BMI Calculated 2020-08-17 03:19:00 Memori al Uri Height 2020-08-12 18:18:00 180.34 cm Memorial [place] Weight 2020-08-12 18:18:00 [facility] Uri BMI Calculated 2020-08-12 18:18:00 Memori al [place] Height 2020-08-10 14:46:00 180.34 cm Memorial [place] Weight 2020-08-10 14:46:00 [facility] Uri BMI Calculated 2020-08-10 [facility] Procedure Date / Time Performing Clinician Source Performed CABG x 2 - Coronary artery 2004-02-19 00:00:00 M emorial [place] bypass grafts x 2 Chemotherapy 2003-02-18 00:00:00 [facility] fischer Neck procedure [facility] Uri Procedure on back [facility] nn 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 Test 22:25:36 [code = COVID-19 VACCINE (#1)] Future Scheduled 2021-10-18 65+ [facility]AL [facility] Test 22:25:36 VACCINE (1 - PCV) [code = 65+ PNEUMOCOCCAL VACCINE (1 - PCV)] Future Scheduled 2021-10-18 SHINGLES VACCINES (1 Met [facility] Test 22:25:36 of 2) [code = SHINGLES VACCINES (1 of 2)] Future Scheduled 2021-10-18 INFLUENZA VACCINE Method [facility] Test 22:25:36 [code = INFLUENZA VACCINE] Future Scheduled 2021-10-18 HEPATITIS B VACCINES Met [facility] Test 22:25:36 (1 of 3 - 3-dose series) [code = HEPATITIS B VACCINES (1 of 3 - 3-dose series)] Future Scheduled 2021-10-18 65+ [facility]OCOCCAL [facility] Test 22:25:36 VACCINE (1 - PCV) [code = 65+ PNEUMOCOCCAL VACCINE (1 - PCV)] Future Scheduled 2021-10-18 SHINGLES VACCINES (1 Met [facility] Test 22:25:36 of 2) [code = SHINGLES VACCINES (1 of 2)] Future Scheduled 2021-10-18 INFLUENZA VACCINE [facility] Test 22:25:36 [code = INFLUENZA VACCINE] Future Scheduled 2021-10-18 HEPATITIS B VACCINES Met [facility] Test 22:25:36 (1 of 3 - 3-dose series) [code = HEPATITIS B VACCINES (1 of 3 - 3-dose series)] Future Scheduled 2021-10-18 COVID-19 VACCINE (#1) [facility] Test 22:25:36 [code = COVID-19 VACCINE (#1)] Future Scheduled 2021-10-18 65+ P[facility]UMOCOCCAL [facility] Test 22:25:36 VACCINE (1 - PCV) [code = 65+ PNEUMOCOCCAL VACCINE (1 - PCV)] Future Scheduled 2021-10-18 SHINGLES VACCINES (1 Met [facility] Test 22:25:36 of 2) [code = SHINGLES VACCINES (1 of 2)] Future Scheduled 2021-10-18 INFLUENZA VACCINE Method [facility] Test 22:25:36 [code = INFLUENZA VACCINE] Future Scheduled 2021-10-18 HEPATITIS B VACCINES Met [facility] Test 22:25:36 (1 of 3 - 3-dose series) [code = HEPATITIS B VACCINES (1 of 3 - 3-dose series)] Future Scheduled 2021-10-18 COVID-19 VACCINE (#1) [facility] Test 22:25:36 [code = COVID-19 VACCINE (#1)] Encounters Start End Encounter Admission Attending Care Care Encounter Source Date/Time Date/Time Type Type Clinicians Facility Department ID 2021-09-19 2021-09-19 Outpatient ELIJAH SANTIAGO [facility] [id number] [facility] 09:36:00 23:59:00 [place] 2020-08-16 2020-08[facility]17 [id number] Memoria 22:40:00 18:50:00 n r [place] 00 l [facility] 2020-08-16 2020-08-17 Observatio nullFlavo [facility] [id number] Memoria 22:40:00 18:50:00 n r [place] 00 l [facility] 2020-08-16 2020-08-17 Outpatient ELIJAH SEPULVEDA MED [id number] [facility]BL 17:40:00 13:50:00 [place]ACH[place] 2020-08-16 2020-08-17 Outpatient ABRAHAM Sepulveda [facility] [id number] 17:40:00 13:50:00 [place] 00 2019-10-07 2019-10-07 Outpatient AGLIECO, [facility] [id number] [place] 00:00:00 00:00:00 HAL 205 Method [facility] 2019-10-05 2019-10-05 Outpatient AGECO, [facility] [id number] [place] 00:00:00 00:00:00 HAL 621 Method i 2016-03-27 2016-03-27 Outpatient [facility] [id number] [place] 00:00:00 00:00:00 DISHA 508 Method i 2015-11-16 2015-11-16 Outpatient [facility] 012 [id number] [place] 00:00:00 00:00:00 DISHA 906 Method i 2015-11-11 2015-11-11 Outpatient [facility] 012 [id number] [place] 00:00:00 00:00:00 DISHA 282 Method i Results Test Description Test Time Test Comments Results Result Comments Source HEMATOLOGY 2020-08-12 18:08:00 Test Item Value Reference Range Interpretation Comme nts Segs (test code = Segs) 48.2 45.0-75.0 [facility]HKHT[facility]SSLDN8977-21-36 18:08:00 Test Item Value Reference Range Interpretation Comments Lymphocytes (test code = Lymphocytes) 39.0 20.0-40.0 [facility]woodYfgosckXPYGECUTZF2877-76-66 18:08:00 Test Item Value Reference Range Interpretation Comments Monocytes (test code = Monocytes) 11.6 2.0-12.0 [place] 820961-06-25 18:08:00 Test Item Value Reference Range Interpretation Comments Eosinophils (test code = 0.9 See_Comment [A utomated message] The Eosinophils) system which ge nerated this result tra nsmitted reference range : <=4.0. The reference r daniele was not used to int erpret this result as normal/abnormal . [facility]woodAymcsgwMIBHOXJLER4715-77-10 18:08:00 Test Item Value Reference Range Interpretation Comments Basophils (test code = 0.3 See_Comment [Aut omated message] The Basophils) system which ge nerated this result tra nsmitted reference range : <=1.0. The reference r daniele was not used to int erpret this result as normal/abnormal . [facility]woodHbrkjqaQAURYMZIQS6013-35-15 18:08:00 Test Item Value Reference Range Interpretation Comments Neutrophils # (test code = Neutrophils 2.0 1.5-8.1 #) [facility]woodQchhlhtDSBTYXYAZI5557-12-85 18:08:00 Test Item Value Reference Range Interpretation Comments Lymphocytes # (test code = Lymphocytes 1.6 1.0-5.5 #) [place] 820961-06-25 18:08:00 Test Item Value Reference Range Interpretation Comments Monocytes # (test code 0.5 See_Comment [Aut omated message] The = Monocytes #) system which generated this result tra nsmitted reference range : <=0.8. The reference r daniele was not used to int erpret this result as normal/abnormal . [facility]woodCziqzmgSCHIDRCNNP9236-04-16 18:08:00 Test Item Value Reference Range Interpretation Comments Schistocyte (test code = 1-3 per HPF Schistocyte) (08/12/20 1:08 PM) [place] 820961-06-25 18:08:00 Test Item Value Reference Range Interpretation Comments WBC (test code = WBC) 4.1 3.7-10.4 [facility]woodEswuktiRFDIFXNKML1730-79-79 18:08:00 Test Item Value Reference Range Interpretation Comments RBC (test code = RBC) 3.74 4.70-6.10 [facility]gwqrokEBKPISSCZZ4895-87-13 18:08:00 Test Item Value Reference Range Interpretation Comments Hgb (test code = Hgb) 11.6 14.0-18.0 [facility]qDPYZOITEJI1462-39-64 18:08:00 Test Item Value Reference Range Interpretation Comments Hct (test code = Hct) 36.3 42.0-54.0 [facility]JsiqnlsJGLRGEFXOA1774-14-13 18:08:00 Test Item Value Reference Range Interpretation Comments MCV (test code = MCV) 97.0 80.0-94.0 [facility] HospitalOjlssjhMFOCHODTPF4996-77-72 18:08:00 Test Item Value Reference Range Interpretation Comments MCH (test code = MCH) 31.0 pg 27.0-31.0 [facility] HospitalQhxyqviTMHKHWRUVR7330-93-22 18:08:00 Test Item Value Reference Range Interpretation Comments MCHC (test code = MCHC) 32.0 32.0-36.0 [facility] HospitalFkzgqpkLHDBXWZIJR7720-17-36 18:08:00 Test Item Value Reference Range Interpretation Comments RDW (test code = RDW) 18.7 11.5-14.5 [facility] HospitalUzruqqvDFDEWQRXJE3255-44-96 18:08:00 Test Item Value Reference Range Interpretation Comments Platelet (test code = Platelet) 34 133-450 [facility] HospitalUbhizdzIVGUHAIBJR4888-80-27 18:08:00 Test Item Value Reference Range Interpretation Comments MPV (test code = MPV) 10.1 7.4-10.4 [facility] QSNHEEXUG3751-07-94 18:08:00 Test Item Value Reference Range Interpretation Comments Hgb A1C (test code = Hgb A1C) 6.9 [facility] [id number] 18:08:00 Test Item Value Reference Range Interpretation Comments Glucose Lvl (test code = Glucose Lvl) 175 70-99 [facility] QCSFG7483-85-80 18:08:00 Test Item Value Reference Range Interpretation Comments BUN (test code = BUN) 27 7-22 [facility] [id number] 18:08:00 Test Item Value Reference Range Interpretation Comments Creatinine Lvl (test code = Creatinine 1.28 0.50-1.40 Lvl) [facility]2021-06-25 18:08:00 Test Item Value Reference Range Interpretation Comments Sodium Lvl (test code = Sodium Lvl) 141 135-145 [place] 551431-06-25 18:08:00 Test Item Value Reference Range Interpretation Comments Potassium Lvl (test code = Potassium 5.0 3.5-5.1 Lvl) [place] 551431-06-25 18:08:00 Test Item Value Reference Range Interpretation Comments Chloride Lvl (test code = Chloride Lvl) 106 95-109 [place] 551431-06-25 18:08:00 Test Item Value Reference Range Interpretation Comments CO2 (test code = CO2) 31 24-32 [place] 551431-06-25 18:08:00 Test Item Value Reference Range Interpretation Comments Calcium Lvl (test code = Calcium Lvl) 9.2 8.5-10.5 [place] 551431-06-25 18:08:00 Test Item Value Reference Range Interpretation Comments AGAP (test code = AGAP) 9.0 10.0-20.0 [facility]2021-06-25 18:08:00 Test Item Value Reference Range Interpretation Comments eGFR (test code = eGFR) 52 [place] 820961-06-25 18:08:00 Test Item Value Reference Range Interpretation Comments RBC Morph (test code = See Note (08/12/20 1:08 RBC Morph) PM) [place] 820961-06-25 18:08:00 Test Item Value Reference Range Interpretation Comments Plt Morph (test code = Clumped 1(08/12/20 1:08 Plt Morph) PM) [place] 820961-06-25 18:08:00 Test Item Value Reference Range Interpretation Comments Segs (test code = Segs) 48.2 45.0-75.0 [place] [address]-06-25 18:08:00 Test Item Value Reference Range Interpretation Comments Lymphocytes (test code = Lymphocytes) 39.0 20.0-40.0 [place] [address]-06-25 18:08:00 Test Item Value Reference Range Interpretation Comments Monocytes (test code = Monocytes) 11.6 2.0-12.0 [place] 820961-06-25 18:08:00 Test Item Value Reference Range Interpretation Comments Eosinophils (test code = 0.9 See_Comment [A utomated message] The Eosinophils) system which ge nerated this result tra nsmitted reference range : <=4.0. The reference r daniele was not used to int erpret this result as normal/abnormal . [place] 820961-06-25 18:08:00 Test Item Value Reference Range Interpretation Comments Basophils (test code = 0.3 See_Comment [Aut omated message] The Basophils) system which ge nerated this result tra nsmitted reference range : <=1.0. The reference r daniele was not used to int erpret this result as normal/abnormal . [facility]woodAgwnlidRBLDETYRNC3695-57-22 18:08:00 Test Item Value Reference Range Interpretation Comments Neutrophils # (test code = Neutrophils 2.0 1.5-8.1 #) [place] 820961-06-25 18:08:00 Test Item Value Reference Range Interpretation Comments Lymphocytes # (test code = Lymphocytes 1.6 1.0-5.5 #) [place] 820961-06-25 18:08:00 Test Item Value Reference Range Interpretation Comments Monocytes # (test code 0.5 See_Comment [Aut omated message] The = Monocytes #) system which generated this result tra nsmitted reference range : <=0.8. The reference r daniele was not used to int erpret this result as normal/abnormal . [place] 820961-06-25 18:08:00 Test Item Value Reference Range Interpretation Comments Schistocyte (test code = 1-3 per HPF Schistocyte) (08/12/20 1:08 PM) [place] 820961-06-25 18:08:00 Test Item Value Reference Range Interpretation Comments WBC (test code = WBC) 4.1 3.7-10.4 [place] 820961-06-25 18:08:00 Test Item Value Reference Range Interpretation Comments RBC (test code = RBC) 3.74 4.70-6.10 [place] 820961-06-25 18:08:00 Test Item Value Reference Range Interpretation Comments Hgb (test code = Hgb) 11.6 14.0-18.0 [place] 820961-06-25 18:08:00 Test Item Value Reference Range Interpretation Comments Hct (test code = Hct) 36.3 42.0-54.0 [facility]abyievHQTBRUPMWA1183-21-86 18:08:00 Test Item Value Reference Range Interpretation Comments MCV (test code = MCV) 97.0 80.0-94.0 [facility]woodFeogxbaXYVYOTRIFF1532-85-50 18:08:00 Test Item Value Reference Range Interpretation Comments MCH (test code = MCH) 31.0 pg 27.0-31.0 [facility]woodDeprbmcIPTJBKCGZY3402-78-18 18:08:00 Test Item Value Reference Range Interpretation Comments MCHC (test code = MCHC) 32.0 32.0-36.0 [facility]GqztbdlIBZCKEVJKA8021-39-96 18:08:00 Test Item Value Reference Range Interpretation Comments RDW (test code = RDW) 18.7 11.5-14.5 [facility]woodVdnlimsOIFPXEOWYJ3146-64-82 18:08:00 Test Item Value Reference Range Interpretation Comments Platelet (test code = Platelet) 34 133-450 [facility] HospitalPiahrioOFWNXOUGRW4865-98-10 18:08:00 Test Item Value Reference Range Interpretation Comments MPV (test code = MPV) 10.1 7.4-10.4 [facility] UYTUDWVOF5526-18-82 18:08:00 Test Item Value Reference Range Interpretation Comments Hgb A1C (test code = Hgb A1C) 6.9 [facility] [id number] 18:08:00 Test Item Value Reference Range Interpretation Comments Glucose Lvl (test code = Glucose Lvl) 175 70-99 [facility] YJOBK0594-21-25 18:08:00 Test Item Value Reference Range Interpretation Comments BUN (test code = BUN) 27 7-22 [facility] [id number] 18:08:00 Test Item Value Reference Range Interpretation Comments Creatinine Lvl (test code = Creatinine 1.28 0.50-1.40 Lvl) [facility] [id number] 18:08:00 Test Item Value Reference Range Interpretation Comments Sodium Lvl (test code = Sodium Lvl) 141 135-145 [facility] [id number] 18:08:00 Test Item Value Reference Range Interpretation Comments Potassium Lvl (test code = Potassium 5.0 3.5-5.1 Lvl) [facility]2021-06-25 18:08:00 Test Item Value Reference Range Interpretation Comments Chloride Lvl (test code = Chloride Lvl) 106 95-109 [facility]2021-06-25 18:08:00 Test Item Value Reference Range Interpretation Comments CO2 (test code = CO2) 31 24-32 [place] 551431-06-25 18:08:00 Test Item Value Reference Range Interpretation Comments Calcium Lvl (test code = Calcium Lvl) 9.2 8.5-10.5 [facility]2021-06-25 18:08:00 Test Item Value Reference Range Interpretation Comments AGAP (test code = AGAP) 9.0 10.0-20.0 [facility]2021-06-25 18:08:00 Test Item Value Reference Range Interpretation Comments eGFR (test code = eGFR) 52 [facility]woodBsnrtycDANZXZXPPQ8063-23-63 18:08:00 Test Item Value Reference Range Interpretation Comments RBC Morph (test code = See Note (08/12/20 1:08 RBC Morph) PM) [place] 820961-06-25 18:08:00 Test Item Value Reference Range Interpretation Comments Plt Morph (test code = Clumped 1(08/12/20 1:08 Plt Morph) PM) [facility]
--- NOTE | 2021-12-11 14:08 | RAD REPORT ---
EXAM DESCRIPTION: Kamila Single View12/11/2021 1:54 pm CLINICAL HISTORY: Chest pain COMPARISON: December 06, 2021 FINDINGS: Small right and small to moderate left pleural effusions without significant change Left basilar atelectasis. Right lung appears clear. Heart is moderately enlarged. Postsurgical changes involve chest
[2021-12-11 14:22] LABS: Potassium 4.1 mmol/L (3.5-5.1); Troponin High Sensitivity 39.8 pg/mL (<58.9)
[2021-12-11 14:26] LABS: Absolute Lymphocytes (CBC) 101.1 K/uL (0.7-4.9); Hematocrit 30.2 % (39.6-49.0); Lymphocytes % 92.9 % (15.3-44.8); MCV 98.1 fL (80-100); MPV 10.6 fL (7.6-11.3); RBC Red Blood Cell Count 3.08 M/uL (4.33-5.43)
[2021-12-11] MEDS ORDERED: FUROSEMIDE 100 MG/10 ML VIAL IV ONE (14:35)
--- NOTE | 2021-12-11 15:53 | EDPHYS ---
Physician Documentation [facility] Name: Harry Almendarez Age: 81 yrs Sex: Male : 1940 Arrival Date: 12/11/2021 Time: 13:27 Bed 4 Private MD: Db Hartley V ED Physician Mahesh Riojas HPI: 12/11 15:53 This 81 yrs old Male presents to ER via Ambulatory with complaints of jl9 Shortness Of Breath. Patient discharged from here 2 days ago and has had increased SOB. History of CHF. . 15:53 Onset: The symptoms/episode began/occurred 2 day(s) ago. Associated signs and symptoms: jl9 Pertinent positives:. Modifying factors: The patient symptoms are alleviated by rest, the patient symptoms are aggravated by activity. The patient has experienced similar episodes in the past. The patient has been recently seen by a physician:. Historical: - Allergies: 13:32 No Known Allergies; ss - PMHx: 13:32 CHF; diabetes mellitus; kidney problems; Leukemia; LYMPHOMA; ss - PSHx: 13:32 Cholecystectomy; Double Bypass; Thyroidectomy; ss - Immunization history:: Client reports receiving the 2nd dose of the Covid vaccine. - Social history:: Smoking status: Patient/guardian denies using tobacco, but has a distant history of tobacco abuse. ROS: 15:54 Constitutional: Negative for fever, chills, and weight loss, Eyes: Negative for injury, jl9 pain, redness, and discharge, ENT: Negative for injury, pain, and discharge, Neck: Negative for injury, pain, and swelling, Cardiovascular: Negative for chest pain, palpitations, and edema. 15:54 Abdomen/GI: Negative for abdominal pain, nausea, vomiting, diarrhea, and constipation, Back: Negative for injury and pain, : Negative for injury, bleeding, discharge, and swelling, MS/Extremity: Negative for injury and deformity, Skin: Negative for injury, rash, and discoloration, Neuro: Negative for headache, weakness, numbness, tingling, and seizure, Psych: Negative for depression, anxiety, suicide ideation, homicidal ideation, and hallucinations, Allergy/Immunology: Negative for hives, rash, and allergies, Endocrine: Negative for neck swelling, polydipsia, polyuria, polyphagia, and marked weight changes, Hematologic/Lymphatic: Negative for swollen nodes, abnormal bleeding, and unusual bruising. 15:54 Respiratory: Positive for orthopnea, shortness of breath. Exam: 15:55 Constitutional: This is a well developed, well nourished patient who is awake, alert, jl9 and in no acute distress. Head/Face: Normocephalic, atraumatic. Eyes: Pupils equal round and reactive to light, extra-ocular motions intact. Lids and lashes normal. Conjunctiva and sclera are non-icteric and not injected. Cornea within normal limits. Periorbital areas with no swelling, redness, or edema. ENT: Mucous membranes moist. Neck: Trachea midline, no thyromegaly or masses palpated, and no cervical lymphadenopathy. Supple, full range of motion without nuchal rigidity, or vertebral point tenderness. No Meningismus. Chest/axilla: Normal chest wall appearance and motion. Nontender with no deformity. No lesions are appreciated. Cardiovascular: Regular rate and rhythm with a normal S1 and S2. No gallops, murmurs, or rubs. Normal PMI, no JVD. No pulse deficits. 15:55 Abdomen/GI: Soft, non-tender, with normal bowel sounds. No distension or tympany. No guarding or rebound. No evidence of tenderness throughout. Back: No spinal tenderness. No costovertebral tenderness. Full range of motion. Skin: Warm, dry with normal turgor. Normal color with no rashes, no lesions, and no evidence of cellulitis. MS/ Extremity: Pulses equal, no cyanosis. Neurovascular intact. Full, normal range of motion. Neuro: Awake and alert, GCS 15, oriented to person, place, time, and situation. Cranial nerves II-XII grossly intact. Motor strength 5/5 in all extremities. Sensory grossly intact. Cerebellar exam normal. Normal gait. Psych: Awake, alert, with orientation to person, place and time. Behavior, mood, and affect are within normal limits. 15:55 Respiratory: mild respiratory distress is noted, Respirations: normal, Breath sounds: are clear throughout. Vital Signs: 13:29 BP 140 / 75; Pulse 86; Resp 23; Pulse Ox 98% on R/A; Weight 83.91 kg; Height 5 ft. 11 ss in. (180.34 cm); Pain 2/10; 13:35 BP 146 / 54; Pulse 80; Resp 24; Temp 99.1; Pulse Ox 99% on R/A; Pain 0/10; mb9 14:50 BP 133 / 63; Pulse 78; Resp 23; Pulse Ox 98% on R/A; mb9 15:50 BP 120 / 65; Pulse 74; Resp 18; Pulse Ox 100% on R/A; mb9 17:00 BP 123 / 67; Pulse 71; Resp 20; Pulse Ox 98% on R/A; Pain 0/10; mb9 18:10 BP 133 / 86; Pulse 76; Resp 20; Pulse Ox 98% on R/A; Pain 0/10; mb9 18:46 BP 125 / 69; Pulse 78; Resp 16; Pulse Ox 98% on R/A; mb9 13:29 Body Mass Index 25.80 (83.91 kg, 180.34 cm) ss MDM: 13:33 Patient medically screened. [facility] 15:55 Data reviewed: vital signs, nurses notes. Counseling: I had a detailed discussion with [facility] the patient and/or guardian regarding: the historical points, exam findings, and any diagnostic results supporting the discharge/admit diagnosis, radiology results, the need for further work-up and treatment in the hospital. Physician consultation: Dr Hartley will see patient. . 12/11 13:34 Order name: Basic Metabolic Panel; Complete Time: 14:24 12/11 13:34 Order name: CBC with Diff 12/11 13:34 Order name: Troponin HS; Complete Time: 14:24 12/11 13:34 Order name: BNP; Complete Time: 14:24 12/11 13:35 Order name: D-Dimer [facility] 12/11 16:12 Order name: SARS-COV-2 Antigen Rapid 12/11 13:34 Order name: XRAY Chest (1 view); Complete Time: 14:10 12/11 13:34 Order name: EKG; Complete Time: 13:35 [facility] 12/11 13:34 Order name: Cardiac monitoring; Complete Time: 13:50 [facility] 12/11 16:08 Order name: CONS Physician Consult [facility] 12/11 17:02 Order name: CBC Smear Scan EDIN 12/11 18:15 Order name: SARS-COV-2 Antigen Rapid [facility] 12/11 13:34 Order name: EKG - Nurse/Tech; Complete Time: 13:50 9 12/11 13:34 Order name: IV Saline Lock; Complete Time: 13:50 12/11 13:34 Order name: Labs collected and sent; Complete Time: 13:50 12/11 13:34 Order name: O2 Per Protocol; Complete Time: 13:50 12/11 13:34 Order name: O2 Sat Monitoring; Complete Time: 13:50 Administered Medications: 14:52 Drug: Furosemide 80 mg Route: IVP; Site: right forearm; mb9 18:11 Follow up: Response: No adverse reaction mb9 18:45 Drug: vancoMYCIN 1 grams Route: IVPB; Infused Over: 2 hrs; Site: right forearm; mb9 Disposition Summary: 12/11/21 15:52 Hospitalization Ordered Hospitalization Status: Inpatient Admission 9 Provider: Db Hartley Location: Telemetry/MedSurg (Inpatient) 9 Condition: Fair jl9 Problem: new 9 Symptoms: are unchanged 9 Bed/Room Type: Standard [facility] Room Assignment: 209(12/11/21 19:17) Diagnosis - Acute on chronic systolic (congestive) heart failure [facility] Forms: - Medication Reconciliation Form jl9 - SBAR form jl9 Addendum: 12/14/2021 07:04 Co-signature as Attending Physician, Mahesh Riojas MD. r n Signatures: Dispatcher [employer] EDTia Perdomo RN Mahesh Linton MD MD rn Smirch, Shelby, RN RN ss Linares, John [facility] Celestina Pappas RN ANGELLA 9 Corrections: (The following items were deleted from the chart) 12/11 19:17 15:52 [facility]
--- NOTE | 2021-12-11 15:53 | ER ---
Nurse's Notes [facility] Name: Harry Almendarez Age: 81 yrs Sex: Male : 1940 Arrival Date: 12/11/2021 Time: 13:27 Bed 4 Private MD: Db Hartley V Diagnosis: Acute on chronic systolic (congestive) heart failure Presentation: 12/11 13:29 Chief complaint: Patient states: "I just got out of here for Afib 2 days ago. They put ss me on some new medication and it's not doing me good at all." Pt reports he began having worsening chest pain and shortness of breath since last night. Coronavirus screen: Client denies travel out of the [place] in the last 14 days. Ebola Screen: Patient denies exposure to infectious person. Patient denies travel to an Ebola-affected area in the 21 days before illness onset. Initial Sepsis Screen: Does the patient meet any 2 criteria? No. Patient's initial sepsis screen is negative. Does the patient have a suspected source of infection? No. Patient's initial sepsis screen is negative. Risk Assessment: Do you want to hurt yourself or someone else? Patient reports no desire to harm self or others. Onset of symptoms was December 10, 2021. 13:29 Method Of Arrival: Ambulatory ss 13:29 Acuity: QUINTIN 2 ss Historical: - Allergies: 13:32 No Known Allergies; ss - PMHx: 13:32 CHF; diabetes mellitus; kidney problems; Leukemia; LYMPHOMA; ss - PSHx: 13:32 Cholecystectomy; Double Bypass; Thyroidectomy; ss - Immunization history:: Client reports receiving the 2nd dose of the Covid vaccine. - Social history:: Smoking status: Patient/guardian denies using tobacco, but has a distant history of tobacco abuse. Screenin:32 Abuse screen: Denies threats or abuse. Denies injuries from another. Nutritional ha1 screening: No deficits noted. Tuberculosis screening: No symptoms or risk factors identified. Fall Risk IV access (20 points). Gait- Weak (10 pts.). Total Barksdale Fall Scale indicates Low Risk Score (25-44 pts). Fall prevention measures have been instituted. Side Rails Up X 2 Placed close to Nursing Station Frequent Obs/Assesments occuring Family Present and informed to notify staff if they need to leave bedside As available Patient and Family Educated on Fall Prevention Program and strategies. Assessment: 13:35 General: Appears in no apparent distress. comfortable, Behavior is calm, cooperative, mb9 appropriate for age. Pain: Denies pain. 13:35 Neuro: Level of Consciousness is awake, alert, obeys commands, Oriented to person, mb9 place, time, situation, Appropriate for age Full function Speech is normal. Cardiovascular: Denies chest pain, shortness of breath, Heart tones S1 S2 present Capillary refill < 3 seconds Pulses are 1+ in right posterior tibial artery, right dorsalis pedis artery, left posterior tibial artery and left dorsalis pedis artery Edema is 1+ to left ankle, left foot, right ankle and right foot pitting to left ankle, left foot, right ankle and right foot Rhythm is sinus rhythm. Respiratory: Airway is patent Respiratory effort is even, unlabored, Respiratory pattern is tachypnea Breath sounds are clear bilaterally. GI: Abdomen is flat, Bowel sounds present X 4 quads. : No signs and/or symptoms were reported regarding the genitourinary system. EENT: No signs and/or symptoms were reported regarding the EENT system. Derm: Skin is intact, Skin is dry, Skin is pale, Skin temperature is warm. Musculoskeletal: Range of motion: intact in all extremities. 14:50 General: Appears in no apparent distress. comfortable, Behavior is calm, cooperative, mb9 appropriate for age. Pain: Denies pain. Neuro: Level of Consciousness is awake, alert, obeys commands, Oriented to person, place, time, situation, Appropriate for age. Cardiovascular: Denies chest pain, shortness of breath, Heart tones S1 S2 present Rhythm is sinus rhythm. Respiratory: Airway is patent Respiratory effort is even, unlabored, Respiratory pattern is tachypnea Breath sounds are clear bilaterally. Derm: Skin is intact, Skin is dry, Skin is pale, Skin temperature is warm. 15:50 General: Appears in no apparent distress. comfortable, pt currently sleeping. at mb9 bedside. 17:00 General: Appears in no apparent distress. comfortable. Pain: Denies pain. Neuro: Level mb9 of Consciousness is awake, alert, obeys commands, Oriented to person, place, time, situation, Appropriate for age. Cardiovascular: Denies chest pain, shortness of breath, Heart tones S1 S2 present Rhythm is sinus rhythm. 17:00 Respiratory: Airway is patent Respiratory effort is even, unlabored, Respiratory mb9 pattern is regular, Breath sounds are clear bilaterally. Derm: Skin is dry, Skin is pale, Skin temperature is warm. 18:08 General: Appears in no apparent distress. comfortable, Behavior is calm, cooperative, mb9 appropriate for age. Pain: Denies pain. Neuro: Level of Consciousness is awake, alert, obeys commands, Oriented to person, place, time, situation, Appropriate for age. Cardiovascular: Denies chest pain, shortness of breath, Heart tones S1 S2 present Rhythm is sinus rhythm. Respiratory: Airway is patent Respiratory effort is even, unlabored, Respiratory pattern is regular, symmetrical. Derm: Skin is intact, Skin is dry, Skin is pale, Skin temperature is warm. 18:45 General: Appears in no apparent distress. comfortable, Behavior is calm, cooperative, mb9 appropriate for age. Pain: Denies pain. Neuro: Level of Consciousness is awake, alert, obeys commands, Oriented to person, place, time, situation, Appropriate for age. Cardiovascular: Heart tones S1 S2 present Rhythm is sinus rhythm. Cardiovascular: Rhythm is sinus rhythm. Respiratory: Airway is patent Respiratory effort is even, unlabored, Respiratory pattern is regular, symmetrical. Derm: Skin is intact, Skin is dry, Skin is pale, Skin temperature is warm. 19:05 Reassessment: report given to ANGELLA Lynn. mb9 19:20 Reassessment: Patient and/or family updated on plan of care and expected duration. Pain ha1 level reassessed. Patient is alert, oriented x 3, equal unlabored respirations, skin warm/dry/pink. General: Appears comfortable, Behavior is calm, cooperative. Pain: Denies pain. Neuro: Level of Consciousness is awake, alert, obeys commands, Oriented to person, place, time, situation, Appropriate for age. 20:57 Pain: Pain does not radiate. ha1 Vital Signs: 13:29 BP 140 / 75; Pulse 86; Resp 23; Pulse Ox 98% on R/A; Weight 83.91 kg; Height 5 ft. 11 ss in. (180.34 cm); Pain 2/10; 13:35 BP 146 / 54; Pulse 80; Resp 24; Temp 99.1; Pulse Ox 99% on R/A; Pain 0/10; mb9 14:50 BP 133 / 63; Pulse 78; Resp 23; Pulse Ox 98% on R/A; mb9 15:50 BP 120 / 65; Pulse 74; Resp 18; Pulse Ox 100% on R/A; mb9 17:00 BP 123 / 67; Pulse 71; Resp 20; Pulse Ox 98% on R/A; Pain 0/10; mb9 18:10 BP 133 / 86; Pulse 76; Resp 20; Pulse Ox 98% on R/A; Pain 0/10; mb9 18:46 BP 125 / 69; Pulse 78; Resp 16; Pulse Ox 98% on R/A; mb9 13:29 Body Mass Index 25.80 (83.91 kg, 180.34 cm) ss ED Course: 13:27 Patient arrived in ED. rg4 13:28 Db Hartley MD is Private Physician. rg4 13:32 Triage completed. ss 13:32 Arm band placed on right wrist. ss 13:33 [facility] jl9 13:33 Mahesh Riojas MD is Attending Physician. jl9 13:33 Kristopher Yates, RN is Primary Nurse. bp 13:35 Placed in gown. Bed in low position. Call light in reach. Side rails up X 1. mb9 13:35 Client placed on continuous cardiac and pulse oximetry monitoring. NIBP monitoring mb9 applied. child monitor on. 13:37 Celestina Pappas, RN is Primary Nurse. mb9 13:50 D-Dimer Sent. mb9 13:50 BNP Sent. mb9 13:51 Basic Metabolic Panel Sent. mb9 13:51 CBC with Diff Sent. mb9 13:51 Troponin HS Sent. mb9 13:56 XRAY Chest (1 view) In Process Unspecified. EDMS 15:51 Db Hartley MD is Hospitalizing Provider. jl9 18:10 SARS-COV-2 Antigen Rapid Sent. mb9 20:55 No provider procedures requiring assistance completed. Patient admitted, IV remains in ha1 place. Patient maintains SpO2 saturation greater than 95% on room air. Administered Medications: 14:52 Drug: Furosemide 80 mg Route: IVP; Site: right forearm; mb9 18:11 Follow up: Response: No adverse reaction mb9 18:45 Drug: vancoMYCIN 1 grams Route: IVPB; Infused Over: 2 hrs; Site: right forearm; mb9 Medication: 20:57 VIS not applicable for this client. 1 Output: 18:52 Urine: 2200ml (Voided); Total: 2200ml. aa5 Outcome: 15:52 Decision to Hospitalize by Provider. pasquale 20:56 Admitted to Med/surg accompanied by tech, via wheelchair, room 209, Report called to filippo Calix RN 20:56 Condition: stable 20:56 Discharge instructions given to patient, family, Instructed on the need for admit, Demonstrated understanding of instructions. 20:58 Patient left the ED. [facility] Signatures: Dispatcher [employer] EDMS Madeline Cardoza, RN RN aa5 Sonal Baker RN RN ss Garcia, Rubi rg4 Peltier, Brian RN RN Kaiden Hay Heidy RN RN ha1 Celestina Pappas RN RN mb9
[2021-12-11] MEDS: FUROSEMIDE 40 MG/4 ML VIAL IV SCH (17:00)
[2021-12-11 17:01] LABS: Anisocytosis 1+; Blood Morphology Comment NOTED (NOT SEEN); Platelet Estimate DECR; Poikilocytosis 1+; White Blood Cell Scan OK (OK)
--- NOTE | 2021-12-11 17:47 | P.HP ---
Certification for Inpatient Patient admitted to: Inpatient With expected LOS: >2 Midnights Practitioner: I am a practitioner with admitting privileges, knowledge of patient current condition, hospital course, and medical plan of care. Services: Services provided to patient in accordance with Admission requirements found in Title 42 Section 412.3 of the Code of Federal Regulations Patient History Date of Service: 12/11/21 Reason for admission: DYSPNEA History of Present Illness: MR VICTORIA HAS DYSPNEA AFTER CARDIOVERSION. HE WAS SENT HOME IN STABLE CONDITION WITH NOT MUCH DISTRESS AFTER CARDIOVERSION. HE HAS NO PAIN. Allergies No Known Allergies Allergy (Verified 11/30/21 09:33) Home medications list reviewed: Yes Home Medications: Aspirin 81 mg PO DAILY 04/18/20 Atorvastatin Calcium 40 mg PO DAILY 04/18/20 Fenofibrate [Tricor*] 145 mg PO DAILY 04/18/20 Levothyroxine Sodium [Levothyroxine] 100 mcg PO DAILY 04/18/20 Potassium Chloride [Klor-Con 10] 10 meq PO DAILY #90 tablet.er 04/18/20 Cholecalciferol (Vitamin D3) [Vitamin D3] 2,000 unit PO DAILY 02/13/21 Furosemide 1 mg PO BID 02/13/21 Glimepiride [Amaryl] 2 mg PO DAILY 02/13/21 Pantoprazole [Protonix Tab] 40 mg PO DAILY 02/13/21 Famotidine 40 mg PO BEDTIME 10/20/21 Tizanidine HCl [Zanaflex] 4 mg PO BEDTIME 10/20/21 Allopurinol 1 tab PO DAILY 12/07/21 Epoetin Ez-Epbx [Retacrit] 1,000 unit IJ 12/07/21 Ibrutinib [Imbruvica] 280 mg PO DAILY 12/07/21 Nitroglycerin 0.4 mg SL PRN 12/07/21 Ondansetron [Zofran] 4 mg PO Q6H PRN 12/07/21 Sulfamethoxazole/Trimethoprim [Sulfamethoxazole-Tmp Ds Tablet] See Rx Instructions .ROUTE .COMPLEX 12/07/21 Valacyclovir HCl [Valacyclovir] 1 tab PO DAILY 12/07/21 Amiodarone HCl [Cordarone*] 200 mg PO BID #60 tab 12/08/21 Apixaban [Eliquis] 2.5 mg PO BID #60 tablet 12/08/21 Metoprolol Succinate [Toprol Xl] 50 mg PO DAILY #30 tab 12/08/21 - Past Medical/Surgical History Diabetic: Yes -: Leukemia -: CAD -: DM,ON CHOLETROL MED -: HTN HYPERTHYROID DOUBLE BYPAS SURGERY -: CHF -: NON-HODGKINS LYMPHOMA -: BACK, NECK, SHOULDER SX -: ONE SIDE THYROID REMOVAL -: DBL BYPASS - Family History Father -: Heart disease Mother -: Heart disease, Cancer Sister -: Kidney disease - Social History Alcohol use: No CD- Drugs: No Caffeine use: Yes Review of Systems 10-point ROS is otherwise unremarkable General: Weakness, Malaise Respiratory: Shortness of Breath Physical Examination - Physical Exam General: Oriented x3, Mild distress HEENT: Atraumatic, PERRLA, Mucous membr. moist/pink, EOMI, Sclerae nonicteric Neck: Supple, 2+ carotid pulse no bruit, No LAD, Without JVD or thyroid abnormality Respiratory: Diminished Cardiovascular: Regular rate/rhythm, Normal S1 S2 Gastrointestinal: Normal bowel sounds, No tenderness Musculoskeletal: No tenderness Integumentary: No rashes Neurological: Normal gait, Normal speech, Normal strength at 5/5 x4 extr, Normal tone, Normal affect Lymphatics: No axilla or inguinal lymphadenopathy - Studies Laboratory Data (last 24 hrs) 12/11/21 13:47: WBC 108.80 H*, Hgb 9.0 L, Hct 30.2 L, Plt Count 17 L* 12/11/21 13:47: Sodium 136, Potassium 4.1, BUN 34 H, Creatinine 1.42 H, Glucose 212 H Assessment and Plan - Problems (Diagnosis) (1) Diastolic CHF, acute on chronic Current Visit: No Status: Acute Plan: DYSPNEA IV LASIX BID. CREAT MAY GO HIGH. WATCH LAB DAILY. (2) CAD (coronary artery disease) of artery bypass graft Current Visit: No Status: Chronic Plan: STABLE FOR NOW WITH POOR PROGNOSIS. Qualifiers: Associated angina: without angina (3) MDS (myelodysplastic syndrome) Current Visit: No Status: Chronic - Advance Directives Does patient have a Living Will: No Does patient have a Durable POA for Healthcare: Yes
[2021-12-11 18:15] LABS: SARS-CoV-2 Antigen Rapid Res Negative (Negative)
[2021-12-11] MEDS ORDERED: VANCOMYCIN 1 GM/VIAL ONE (18:28)
[2021-12-11] MEDS ORDERED: NA CHLORIDE 0.9% 250 ML ONE (18:29)
[2021-12-11] MEDS ORDERED: VANCOMYCIN 500 MG in NA CHLORIDE 0.9% 100 ML IVPB ONE (21:00)
[2021-12-11] MEDS ORDERED: VANCOMYCIN 1 GM in NA CHLORIDE 0.9% 250 ML IV ONE (21:00)
--- NOTE | 2021-12-11 23:44 | CON ---
Date of Consultation: 12/11/2021 Reason For Consultation: Acute congestive heart failure exacerbation. History Of Present Illness: This is an 81-year-old male who was recently in the hospital with atrial fibrillation with rapid ventricular response, loaded with amiodarone and cardioverted into sinus rhy thm, still in sinus rhythm. Apparently, at home he has been having some significant shortness of cyndi ath on exertion with lower extremity edema. No orthopnea. He came in due to worsening shortness of breath. Denies having any chest pain. No nausea, vomiting, or diarrhea. No dysuria, polyuria, or u rinary urgency. All other systems reviewed and are negative. Past Medical History: Diabetes, congestive heart failure, dyslipidemia, hypothyroidism, lymphoma, an d coronary artery disease. Past Surgical History: Coronary artery bypass surgery. Medications: Refer to reconciliation sheet for detailed list. Allergies: NO KNOWN DRUG ALLERGIES. Social History: Does not smoke or drink. Does not use any drugs. Review of Systems: All systems reviewed and were negative except for what is mentioned in HPI. Physical Examination: Vital Signs: Reviewed. Head And Neck: Pupils are equal and reactive to light. Intact eye movements. No JVD. No cervical lymphadenopathy. Neck: Supple. Thyroid is not enlarged. Lungs: Decreased breathing sounds with crackles in both bases. No accessory muscle use or muscle re traction. Heart: Regular rate and rhythm with PVCs. Abdomen: Soft, nontender. Bowel sounds positive. No organomegaly. No masses or hernia. No rigidi ty or rebound. Extremities: 3+ pitting edema bilaterally. No clubbing or cyanosis. Intact pulses. Skin: No rash. Neurologic: Alert, awake, oriented x3. No acute focal deficits appreciated. Investigations: BUN 34, creatinine 1.42. NT-proBNP is 25,185. Assessment And Recommendation: 1.Bybxd-av-iokukkd systolic congestive heart failure exacerbation. Patient is noted to have low eje ction fraction. I agree with Lasix 40 mg IV q.12 hours. Monitor BUN, creatinine, and electrolytes. 2.Atrial fibrillation, rate is controlled. Continue amiodarone and continue anticoagulation with El iquis. SR/MODL Voice ID: [id number] Report ID: [id number]
[2021-12-11] MEDS: POTASSIUM CL SA 10 MEQ TAB PO SCH (23:46)
[2021-12-12 02:27] VITALS: BMI 25.7
[2021-12-12 05:38] LABS: Specific Gravity 1.012 (1.005-1.030); Urine Bilirubin NEGATIVE (Negative); Urine Blood Trace (Negative); Urine Clarity Clear (Clear); Urine Color Light-Yellow (Yellow); Urine Glucose NEGATIVE (Negative); Urine Mucus Slight /HPF (None Seen); Urine Protein 1+ (Negative); Urine RBC <5 /HPF (None Seen); Urine Urobilinogen Normal (Normal)
[2021-12-12] MEDS ORDERED: PNEUMOCOCCAL VACCINE 0.5 ML IMVAC ONE (08:00)
[2021-12-12] MEDS ORDERED: INFLUENZA VACCINE (for 6+ mo) 0.5 ML DOSE IMVAC ONE (08:00)
[2021-12-12] MEDS: POTASSIUM CL SA 10 MEQ TAB PO SCH ×2 (09:22→21:00)
[2021-12-12] MEDS: FUROSEMIDE 40 MG/4 ML VIAL IV SCH ×2 (09:24→17:12)
[2021-12-12] MEDS ORDERED: NITROGLYCERIN 0.4 MG/TAB SL PRN (12:54)
[2021-12-12] MEDS ORDERED: ONDANSETRON 4 MG (ODT) TAB PO PRN (12:54)
--- NOTE | 2021-12-12 13:02 | P.PN ---
Subjective Date of Service: 12/12/21 Chief Complaint: DYSPNEA Subjective: Improving HE IS A LOT BETTER. I HAD DR. GALO ADD VANCOMYCIN FOR THE SEVERE HOSPICAL ACQUIRED PHLEBITIS HE HAS ON L FOREARM. THAT IS ALSO BETTER. Physical Examination - Vital Signs Temperature: 97.3 F Blood Pressure: 132/71 Pulse: 77 Respirations: 16 Pulse Ox (%): 100 - Physical Exam General: Oriented x3, Mild distress, Moderate distress HEENT: Atraumatic, PERRLA, EOMI Neck: Supple, JVD not distended Respiratory: Clear to auscultation bilaterally, Normal air movement Cardiovascular: Regular rate/rhythm, Normal S1 S2 Gastrointestinal: Normal bowel sounds, No tenderness Musculoskeletal: No tenderness Integumentary: No rashes Neurological: Normal speech, Normal tone, Normal affect Lymphatics: No axilla or inguinal lymphadenopathy - Studies Laboratory Data (last 24 hrs) 12/11/21 13:47: WBC 108.80 H*, Hgb 9.0 L, Hct 30.2 L, Plt Count 17 L* 12/11/21 13:47: Sodium 136, Potassium 4.1, BUN 34 H, Creatinine 1.42 H, Glucose 212 H Medications List Reviewed: Yes Assessment And Plan - Current Problems (Diagnosis) (1) Diastolic CHF, acute on chronic Current Visit: No Status: Acute Plan: DYSPNEA IV LASIX BID. CREAT MAY GO HIGH. WATCH LAB DAILY. (2) CAD (coronary artery disease) of artery bypass graft Current Visit: No Status: Chronic Plan: STABLE FOR NOW WITH POOR PROGNOSIS. Qualifiers: Associated angina: without angina (3) MDS (myelodysplastic syndrome) Current Visit: No Status: Chronic (4) Thrombophlebitis Current Visit: Yes Status: Acute Plan: IV VANCOMYCIN CHANGE TO ORAL ZYVOX FOR HOME IN AM.
--- NOTE | 2021-12-12 13:56 | EKG ---
Test Date: 2021-12-12 Test Time: 00:48:14 Sql Engineer: MARIPOSA MEASUREMENT RESULTS: Intervals: Rate: 94 ME: 184 QRSD: 158 QT: 404 QTc: 505 [place]: P: ME: 184 QRS: -45 T: 83 INTERPRETIVE STATEMENTS: Sinus rhythm with occasional and consecutive premature ventricular complexes Left axis deviation Nonspecific intraventricular block Abnormal ECG Compared to ECG 12/11/2021 13:38:14 First degree AV block no longer present Electronically Signed On 12-12-21 13:55:03 CDT by Deven Poole
--- NOTE | 2021-12-12 13:59 | EKG ---
Test Date: 2021-12-11 Test Time: 13:38:14 Beauty Culture Teacher: MEGA MEASUREMENT RESULTS: Intervals: Rate: 86 VT: 218 QRSD: 146 QT: 398 QTc: 476 [place]: P: 9 VT: 218 QRS: -73 T: 176 INTERPRETIVE STATEMENTS: Sinus rhythm with 1st degree AV block with frequent and consecutive premature ventricular complexes Left axis deviation Nonspecific intraventricular block Abnormal ECG Compared to ECG 12/06/2021 20:34:54 First degree AV block now present Atrial fibrillation no longer present Left bundle-branch block no longer present Electronically Signed On 12-12-21 13:59:19 CDT by Deven Poole
[2021-12-12] MEDS: APIXABAN 2.5 MG TABLET PO SCH (21:00)
[2021-12-12] MEDS: AMIODARONE HCL 200 MG TAB PO SCH (21:00)
[2021-12-12] MEDS ORDERED: FUROSEMIDE 40 MG TABLET PO SCH (21:00)
[2021-12-12] MEDS: FAMOTIDINE 20 MG TAB PO SCH (21:00)
[2021-12-12] MEDS: ATORVASTATIN 40 MG TAB PO SCH (21:00)
[2021-12-12] MEDS: VANCOMYCIN 1.5 GM in NA CHLORIDE 0.9% 500 ML IVPB SCH (22:38)
[2021-12-13] MEDS: LEVOTHYROXINE SOD 0.1 MG TAB PO SCH (06:05)
[2021-12-13] MEDS: GLIMEPIRIDE 2 MG TABLET PO SCH (07:30)
[2021-12-13 08:36] LABS: Hematocrit 29.7 % (39.6-49.0); MCV 97.8 fL (80-100); MPV 6.7 fL (7.6-11.3); RBC Red Blood Cell Count 3.03 M/uL (4.33-5.43)
[2021-12-13] MEDS: FUROSEMIDE 40 MG/4 ML VIAL IV SCH (08:47)
[2021-12-13] MEDS: ASPIRIN 81 MG CHEWABLE TABLET PO SCH (08:48)
[2021-12-13 08:51] LABS: Magnesium 1.9 mg/dL (1.8-2.4); Potassium 4.6 mmol/L (3.5-5.1)
[2021-12-13 08:52] LABS: Lymphocytes % 93.8 % (15.3-44.8)
[2021-12-13] MEDS: allopurinoL 100 MG TAB PO SCH (09:00)
[2021-12-13] MEDS ORDERED: HOME MED 1 EA UNK (Levothyroxine Sodium [Levothyroxine] 100 MCG Capsule) PO SCH (09:00)
[2021-12-13] MEDS: FENOFIBRATE 160 MG TAB PO SCH (09:00)
[2021-12-13] MEDS: APIXABAN 2.5 MG TABLET PO SCH ×2 (09:00→20:55)
[2021-12-13] MEDS: AMIODARONE HCL 200 MG TAB PO SCH ×2 (09:00→20:54)
[2021-12-13] MEDS: IBRUTINIB 280 MG PO SCH (09:00)
[2021-12-13] MEDS: PANTOPRAZOLE 40MG TABLET PO SCH (09:00)
[2021-12-13] MEDS ORDERED: HOME MED 1 EA UNK (Cholecalciferol (Vitamin D3) [Vitamin D3] 2000 UNIT Capsule) PO SCH (09:00)
[2021-12-13] MEDS: METOPROLOL XL 50 MG TAB PO SCH (09:00)
[2021-12-13] MEDS ORDERED: POTASSIUM CL SA 10 MEQ TAB PO SCH ×2 (09:00→21:00)
[2021-12-13] MEDS: POTASSIUM CL SA 10 MEQ TAB PO SCH (09:00)
[2021-12-13] MEDS: VITAMIN D 1000 UNIT TAB PO SCH (09:00)
[2021-12-13] MEDS: VALACYCLOVIR 500 MG TAB PO SCH (09:00)
--- NOTE | 2021-12-13 09:46 | RAD REPORT ---
EXAM DESCRIPTION: CT - Chest For Pe Angio - 12/13/2021 9:35 am CLINICAL HISTORY: pe COMPARISON: Chest For Pe Angio dated 12/06/2021; Chest Abd Pelvis Wo Con dated 08/22/2021 TECHNIQUE: Dynamically enhanced axial 3 mm thick images of the chest were obtained during administra tion of <100> mL Isovue 370 IV contrast. Coronal and oblique reconstruction images were generated and reviewed. Exam utilizes a protocol for optimal evaluation of pulmonary arterial tree. Maximum intensity projections 3D imaging was utilized All CT scans are performed using dose optimization technique as appropriate and may include automated exposure control or mA/KV adjustment according to patient size. FINDINGS: Chest Wall: Prominent axillary lymph nodes. Right axillary lymphadenectomy. Lungs: Chronic left pleural effusion with subpleural thickening in the left lower lobe consistent wit h round atelectasis. Mild atelectasis as a result of the right pleural effusion. 7 mm right lower lob e pulmonary nodule on image 107, series 402. This is similar to 12/06/2021. Pleura: Chronic left pleural effusion with subjacent round atelectasis. Small right effusion. Associa vera atelectasis . Mediastinum/jamison: Similar mild mediastinal lymphadenopathy. Pulmonary arteries/Aorta: No filling defect identified. No aortic aneurysm. Heart: No significant pericardial effusion. Mild cardiomegaly. Multi-vessel coronary artery disease. Upper abdomen: No acute abnormality.Low-density liver lesions which have benign imaging features. Upp er abdominal lymphadenopathy is unchanged. Bones: No acute abnormality. Sternotomy. IMPRESSION: Negative for pulmonary embolism. Compared with 12/06/2021, new small right pleural effus ion and chronic left pleural effusion. The right-sided pleural effusion may be secondary to interstit ial edema.
[2021-12-13] MEDS ORDERED: METHYLPREDNISOLONE 40 MG INJ IV SCH (13:05)
--- NOTE | 2021-12-13 13:09 | EKG ---
Test Date: 2021-12-12 Test Time: 00:49:01 Edge Stainer: MARIPOSA MEASUREMENT RESULTS: Intervals: Rate: 92 FL: 192 QRSD: 158 QT: 402 QTc: 497 [place]: P: 49 FL: 192 QRS: -51 T: 87 INTERPRETIVE STATEMENTS: Sinus rhythm with occasional premature ventricular complexes Left axis deviation Nonspecific intraventricular block Abnormal ECG Compared to ECG 12/12/2021 00:48:14 No significant changes Electronically Signed On 12-13-21 13:07:24 CDT by Deven Poole
--- NOTE | 2021-12-13 13:09 | P.PN ---
Subjective Date of Service: 12/13/21 Chief Complaint: DYSPNEA Subjective: No new changes HE DOES NOT FEEL BETTER TODAY. HE IS NOT ABLE TO SLEEP WELL WITH DYSPNEA. Review of Systems 10-point ROS is otherwise unremarkable General: Weakness Respiratory: Shortness of Breath Physical Examination - Vital Signs Temperature: 97.2 F Blood Pressure: 115/54 Pulse: 65 Respirations: 18 Pulse Ox (%): 98 - Physical Exam General: Oriented x3, Mild distress, Moderate distress HEENT: Atraumatic, PERRLA, EOMI Neck: Supple, JVD not distended Respiratory: Clear to auscultation bilaterally, Normal air movement Cardiovascular: Regular rate/rhythm, Normal S1 S2 Gastrointestinal: Normal bowel sounds, No tenderness Musculoskeletal: No tenderness Integumentary: No rashes Neurological: Normal speech, Normal tone, Normal affect Lymphatics: No axilla or inguinal lymphadenopathy - Studies Medications List Reviewed: Yes Assessment And Plan - Current Problems (Diagnosis) (1) Diastolic CHF, acute on chronic Current Visit: No Status: Acute Plan: DYSPNEA IV LASIX BID. CREAT MAY GO HIGH. WATCH LAB DAILY. CLINICALLY LUNGS ARE CLEAR THERE IS NO JVD REDUCE LASIX. (2) CAD (coronary artery disease) of artery bypass graft Current Visit: No Status: Chronic Plan: STABLE FOR NOW WITH POOR PROGNOSIS. DR. ROWLEY WILL CHECK ON STATUS OF CORONARIES HE HAS LOW EF AND CAD . Qualifiers: Associated angina: without angina (3) MDS (myelodysplastic syndrome) Current Visit: No Status: Chronic (4) Thrombophlebitis Current Visit: Yes Status: Acute Plan: IV VANCOMYCIN CHANGE TO ORAL ZYVOX FOR HOME IN AM. (5) COPD (chronic obstructive pulmonary disease) Current Visit: Yes Status: Chronic Plan: THIS IS LIKELY HE IS FORMER SMOKER TRIAL OF STEROIDS AND NEBS.
[2021-12-13] MEDS ORDERED: LEVALBUTEROL 0.63 MG/3 ML NEB NEB SCH (14:00)
--- NOTE | 2021-12-13 16:58 | PN ---
Date of Progress Note: 12/13/2021 Subjective: Seen by bedside. Doing clinically much better today. Review of Systems: There is no significant shortness of breath, orthopnea, cough. No nausea, vomiting, diarrhea. No ab dominal pain. No dysuria, polyuria, or urinary urgency. All other systems reviewed and they were ne gative. Physical Examination: Vital Signs: Temperature 97.2, heart rate 65, breathing at 18, blood pressure 115/54, saturating 98% on room air. General: Pleasant, elderly male, in no apparent distress. Head and Neck: Pupils are equal, reactive to light. Intact eye movements. No JVD. No cervical lym phadenopathy. Neck is supple. Thyroid is not enlarged. Lungs: Clear to auscultation bilaterally. No rhonchi, wheezing, or crackles. No accessory muscle u se. Heart: Regular rate and rhythm. No extra sounds. Abdomen: Soft, nontender. Bowel sounds positive. No organomegaly. No masses or hernia. No rigidi ty or rebound. Extremities: Trace edema. No clubbing or cyanosis. Intact pulses. Skin: No rash. Neurologic: Alert, awake, oriented x3. No acute focal deficits appreciated. Investigations: His BUN is 35, creatinine 1.38, significant improvement. Assessment And Recommendations: 1.Acute on chronic systolic heart failure. Doing much better with IV Lasix appropriately. Dr. Martin grigsby decreased his Lasix to 20 mg twice a day due to approaching euvolemic status. Continue that for 1 more day and tomorrow probably the patient can be released to home on oral diuretics. 2.Atrial fibrillation, rate is controlled. Continue current management with amiodarone and apixaban. 3.Hypertension. Blood pressure is controlled. SR/MODL Voice ID: [id number] Report ID: [id number]
[2021-12-13] MEDS ORDERED: FUROSEMIDE 20 MG/ 2ML VIAL IV SCH (17:00)
--- NOTE | 2021-12-13 17:05 | PN ---
Date of Progress Note: 12/12/2021 Subjective: Seen by bedside. He has shortness of breath on exertion, feels generally weak, but with improvement. Review of Systems: No chest pain. Has shortness of breath on exertion and orthopnea with lower extremity edema that is better. No nausea, vomiting, diarrhea. No abdominal pain. No dysuria, polyuria, or urinary urgency . No skin rash, headache. All other systems reviewed and they were negative. Physical Examination: Vital Signs: Reviewed. Head and Neck: Pupils are equal, reactive to light. Intact eye movements. No JVD. No cervical lym phadenopathy. Neck is supple. Thyroid is not enlarged. Lungs: Clear to auscultation bilaterally. No rhonchi, wheezing, or crackles. No accessory muscle u se. Heart: Regular rate and rhythm. No extra sounds. Abdomen: Soft, nontender. Bowel sounds positive. No organomegaly. No masses or hernia. No rigidi ty or rebound. Extremities: No clubbing or cyanosis. Intact pulses. Skin: No rash. Neurologic: Alert, awake, oriented x3. No acute focal deficits appreciated. Investigations: Labs were reviewed. Assessment And Recommendations: 1.Acute on chronic systolic heart failure. Continue IV diuresis. Monitor BUN, creatinine, and elec trolytes. 2.Atrial fibrillation, status post YOVANY-guided cardioversion recently and on amiodarone. He is in si nus rhythm. Continue amiodarone and apixaban. 3.Dyslipidemia. Continue statin. 4.Hypertension. Blood pressure is controlled. SR/MODL Voice ID: [id number] Report ID: [id number]
[2021-12-13] MEDS: ATORVASTATIN 40 MG TAB PO SCH (21:00)
[2021-12-13] MEDS: SACUBITRIL/VALSARTAN 24/26 MG TAB PO SCH (21:01)
[2021-12-13] MEDS: FAMOTIDINE 20 MG TAB PO SCH (21:03)
[2021-12-13] MEDS: VANCOMYCIN 1.5 GM in NA CHLORIDE 0.9% 500 ML IVPB SCH (21:04)
[2021-12-13] MEDS: TIZANIDINE 4 MG TABLET PO PRN (21:08)
[2021-12-14] MEDS: LEVOTHYROXINE SOD 0.1 MG TAB PO SCH (05:43)
[2021-12-14] MEDS: FENOFIBRATE 160 MG TAB PO SCH (08:42)
[2021-12-14] MEDS: APIXABAN 2.5 MG TABLET PO SCH ×2 (08:42→20:35)
[2021-12-14] MEDS: AMIODARONE HCL 200 MG TAB PO SCH ×2 (08:42→20:34)
[2021-12-14] MEDS: allopurinoL 100 MG TAB PO SCH (08:42)
[2021-12-14] MEDS: PANTOPRAZOLE 40MG TABLET PO SCH (08:42)
[2021-12-14] MEDS: GLIMEPIRIDE 2 MG TABLET PO SCH (08:43)
[2021-12-14] MEDS: IBRUTINIB 280 MG PO SCH (08:43)
[2021-12-14] MEDS: ASPIRIN 81 MG CHEWABLE TABLET PO SCH (08:43)
[2021-12-14] MEDS: VITAMIN D 1000 UNIT TAB PO SCH (08:43)
[2021-12-14] MEDS: VALACYCLOVIR 500 MG TAB PO SCH (08:44)
[2021-12-14] MEDS: METOPROLOL XL 50 MG TAB PO SCH (08:48)
[2021-12-14] MEDS: SACUBITRIL/VALSARTAN 24/26 MG TAB PO SCH ×2 (08:48→20:37)
--- NOTE | 2021-12-14 14:30 | EKG ---
Test Date: 2021-12-14 Test Time: 06:16:54 Assistant Grocery: FANTASMA MEASUREMENT RESULTS: Intervals: Rate: 80 [place]: QRSD: 164 QT: 436 QTc: 502 [place]: P: [place]: QRS: -68 T: 129 INTERPRETIVE STATEMENTS: Atrial fibrillation Left axis deviation Left ventricular hypertrophy with QRS widening Abnormal ECG Compared to ECG 12/14/2021 06:15:35 Ventricular premature complex(es) no longer present Electronically Signed On 12-14-21 14:28:16 CDT by Deven Poole
--- NOTE | 2021-12-14 14:30 | EKG ---
Test Date: 2021-12-14 Test Time: 06:15:35 Clinical Data Abstractor: FANTASMA MEASUREMENT RESULTS: Intervals: Rate: 96 [place]: QRSD: 166 QT: 440 QTc: 555 [place]: P: [place]: QRS: -57 T: 120 INTERPRETIVE STATEMENTS: Atrial fibrillation with premature ventricular or aberrantly conducted complexes Left axis deviation Left ventricular hypertrophy with QRS widening Abnormal ECG Compared to ECG 12/12/2021 00:49:01 Left ventricular hypertrophy now present Sinus rhythm no longer present Electronically Signed On 12-14-21 14:28:20 CDT by Deven Poole
[2021-12-14] MEDS ORDERED: [UNRECOGNIZED DRUG - OTHER] IV SCH (20:15)
[2021-12-14] MEDS ORDERED: NACHLORIDE 0.45% 1,000 ML IV ONE (20:31)
[2021-12-14] MEDS: ATORVASTATIN 40 MG TAB PO SCH (20:34)
[2021-12-14] MEDS: FAMOTIDINE 20 MG TAB PO SCH (20:34)
[2021-12-14] MEDS: VANCOMYCIN 1.5 GM in NA CHLORIDE 0.9% 500 ML IVPB SCH (20:36)
--- NOTE | 2021-12-14 23:56 | PN ---
Date of Progress Note: 12/14/2021 Subjective: Seen at bedside, is doing better. However, his creatinine has jumped so Lasix was held. Review of Systems: No chest pain, shortness of breath, orthopnea, or cough. No nausea, vomiting, or diarrhea. No abdom inal pain. No history of urinary urgency. All other systems reviewed and are negative. Physical Examination: Vital Signs: Reviewed. HEENT: Pupils are equal and reactive to light. Intact eye movements. No JVD. No cervical lymphade nopathy. Neck: Supple. Thyroid is not enlarged. Lungs: Clear to auscultation bilaterally. No rhonchi, wheezing, or crackles. No accessory muscle u se. Heart: Irregularly irregular. No extra sounds. Abdomen: Soft, nontender. Bowel sounds positive. No organomegaly. No masses or hernia. No rigidi ty or rebound. Extremities: No edema, clubbing, or cyanosis. Intact pulses. Skin: No rash. Neurologic: Alert, awake, oriented x3. No acute focal deficits appreciated. Investigations: Creatinine is 1.92. Assessment And Recommendation: 1.Yzbwl-fu-otcpbvx systolic heart failure exacerbation. His BUN and creatinine increased with Lasix . Hold Lasix today and reassess and start him on that tomorrow. We will plan for Lexiscan stress te st as and outpatient. 2.Atrial fibrillation. He went back into atrial fibrillation, but rate is controlled. Continue cur rent management with amiodarone and apixaban and use beta-neto IV as needed for rate control. 3.Ywgva-gz-fvzuvkn renal failure due to overdiuresis. Hold Lasix and reassess tomorrow. SR/MODL Voice ID: [id number] Report ID: [id number]
[2021-12-15] MEDS: TIZANIDINE 4 MG TABLET PO PRN (01:39)
[2021-12-15 04:00] LABS: Magnesium 1.9 mg/dL (1.8-2.4); Potassium 5.2 mmol/L (3.5-5.1)
[2021-12-15 04:02] LABS: Absolute Lymphocytes (CBC) 115.7 K/uL (0.7-4.9); Hematocrit 27.2 % (39.6-49.0); Lymphocytes % 93.7 % (15.3-44.8); MCV 99.2 fL (80-100); MPV 8.7 fL (7.6-11.3); RBC Red Blood Cell Count 2.74 M/uL (4.33-5.43)
[2021-12-15 04:33] LABS: Blood Morphology Comment NOTED (NOT SEEN); Platelet Estimate DECR; Platelets, Giant MOD; White Blood Cell Scan OK (OK)
[2021-12-15 04:34] LABS: Anisocytosis 1+; Hypochromasia 1+; Macrocytosis 2+; Ovalocytes 2+
[2021-12-15 04:55] VITALS: O2SAT 99
[2021-12-15] MEDS: LEVOTHYROXINE SOD 0.1 MG TAB PO SCH (05:52)
[2021-12-15] MEDS ORDERED: NACHLORIDE 0.45% 500 ML IV SCH (08:19)
[2021-12-15] MEDS: METOPROLOL XL 50 MG TAB PO SCH (08:28)
[2021-12-15] MEDS: FENOFIBRATE 160 MG TAB PO SCH (08:33)
[2021-12-15] MEDS: GLIMEPIRIDE 2 MG TABLET PO SCH (08:33)
[2021-12-15] MEDS: VITAMIN D 1000 UNIT TAB PO SCH (08:33)
[2021-12-15] MEDS: ASPIRIN 81 MG CHEWABLE TABLET PO SCH (08:33)
[2021-12-15] MEDS: PANTOPRAZOLE 40MG TABLET PO SCH (08:33)
[2021-12-15] MEDS: AMIODARONE HCL 200 MG TAB PO SCH (08:34)
[2021-12-15] MEDS: allopurinoL 100 MG TAB PO SCH (08:34)
[2021-12-15] MEDS: APIXABAN 2.5 MG TABLET PO SCH (08:34)
[2021-12-15] MEDS: IBRUTINIB 280 MG PO SCH (08:35)
[2021-12-15] MEDS: VALACYCLOVIR 500 MG TAB PO SCH (08:35)
[2021-12-15 12:30] VITALS: BP 111/64; TEMP 96.9
--- NOTE | 2021-12-15 12:47 | PN ---
Subjective: Mr. Almendarez is doing lot better. He had an episode of hypotension, this morning, becaus e of diuretics. I discontinued diuretics at this point as he has become prerenal from being hypervol emic before. Physical Examination: Vital Signs: Blood pressure 106/57, pulse is 64, temperature 97.0. HEENT: No JVD. No carotid bruits. Chest: Decreased. Heart: Irregular. Abdomen: No guarding. No rebound. No rigidity. Laboratory Examination: White count of 117,000 from chronic lymphatic leukemia, platelets of 19,000, which are at baseline for him. BUN raised to 38/1.92. Assessment And Plan: Congestive heart failure, systolic, acute on chronic. Continue medications, st arted Entresto. We will check chem-7 in the morning. Lasix will be on reduced dose at this point wh en he is able to tolerate. Prognosis poor. He has coronary artery disease with atrial fibrillation with congestive cardiomyopathy and it is difficult to manage his medications and make him feel better , at this point. He may go home tomorrow. PINGD/MODL Voice ID: [id number] Report ID: [id number]
--- NOTE | 2021-12-15 13:21 | P.DS ---
Admission Date: 12/11/21 Discharge Date: 12/15/21 Disposition: ROUTINE DISCHARGE Discharge Condition: SERIOUS Reason for Admission: DYSPNEA - Problems (1) Diastolic CHF, acute on chronic Current Visit: No Status: Acute (2) CAD (coronary artery disease) of artery bypass graft Current Visit: No Status: Chronic Qualifiers: Associated angina: without angina (3) MDS (myelodysplastic syndrome) Current Visit: No Status: Chronic (4) Thrombophlebitis Current Visit: Yes Status: Acute (5) COPD (chronic obstructive pulmonary disease) Current Visit: Yes Status: Chronic Brief History of Present Illness: MR VICTORIA HAS DYSPNEA AFTER CARDIOVERSION. HE WAS SENT HOME IN STABLE CONDITION WITH NOT MUCH DISTRESS AFTER CARDIOVERSION. HE HAS NO PAIN. Hospital Course: Harry comes in with dyspnea, got diuretics iv and did not improve until day before discharge when he said he was not good in am but at lunch told dr. Poole that he feels great. Dr. Poole wanted one more day of diuretics but BP was low normal so I reduced the dose. Bp still dropped next am and we ended up holding all bp related meds. His creatinine went high to 2.37 and now it is down to 2.21 after holding meds and small bolus twice. He is stable to go home with guarded progosis. He has many things wrong with him including MDS, CLL, CHF, congestive cardiomyopathy, CAD and CKD. Vital Signs/Physical Exam: Temp Pulse Resp BP Pulse Ox 96.9 F 60 16 111/64 99 12/15/21 12:00 12/15/21 12:00 12/15/21 12:00 12/15/21 12:00 12/15/21 12:00 General: Alert, In no apparent distress HEENT: Atraumatic, PERRLA, EOMI Neck: Supple, JVD not distended Respiratory: Clear to auscultation bilaterally, Normal air movement Cardiovascular: Irregular heart rate/rhythm Gastrointestinal: Normal bowel sounds, No tenderness Musculoskeletal: No tenderness Integumentary: No rashes Neurological: Normal speech, Normal tone, Normal affect Lymphatics: No axilla or inguinal lymphadenopathy Laboratory Data at Discharge: WBC 123.30 K/uL (4.3-10.9) H* 12/15/21 03:20 Hgb 7.9 g/dL (13.6-17.9) L 12/15/21 03:20 Hct 27.2 % (39.6-49.0) L 12/15/21 03:20 Plt Count 24 K/uL (152-406) L* 12/15/21 03:20 Sodium 135 mmol/L (136-145) L 12/15/21 03:20 Potassium 5.2 mmol/L (3.5-5.1) H 12/15/21 03:20 BUN 55 mg/dL (7-18) H 12/15/21 03:20 Creatinine 2.21 mg/dL (0.55-1.3) H 12/15/21 03:20 Glucose 209 mg/dL (74-106) H 12/15/21 03:20 Magnesium 1.9 mg/dL (1.8-2.4) 12/15/21 03:20 Home Medications: Aspirin 81 mg PO DAILY 04/18/20 Atorvastatin Calcium 40 mg PO DAILY 04/18/20 Fenofibrate [Tricor*] 145 mg PO DAILY 04/18/20 Levothyroxine Sodium [Levothyroxine] 100 mcg PO DAILY 04/18/20 Potassium Chloride [Klor-Con 10] 10 meq PO DAILY #90 tablet.er 04/18/20 Cholecalciferol (Vitamin D3) [Vitamin D3] 2,000 unit PO DAILY 02/13/21 Furosemide 1 tab PO BID 02/13/21 Glimepiride [Amaryl*] 2 mg PO DAILY 02/13/21 Pantoprazole [Protonix Tab*] 40 mg PO DAILY 02/13/21 Famotidine 40 mg PO BEDTIME 10/20/21 Allopurinol 1 tab PO DAILY 12/07/21 Epoetin Ez-Epbx [Retacrit] 1,000 unit IJ EVERY 7TH DAY 12/07/21 Ibrutinib [Imbruvica] 280 mg PO DAILY 12/07/21 Ondansetron [Zofran (Odt)*] 4 mg PO Q6H PRN 12/07/21 Sulfamethoxazole/Trimethoprim [Sulfamethoxazole-Tmp Ds Tablet] See Rx Instructions .ROUTE .COMPLEX 12/07/21 Valacyclovir HCl [Valacyclovir] 1 tab PO DAILY 12/07/21 Amiodarone HCl [Cordarone*] 200 mg PO BID #60 tab 12/08/21 Metoprolol Succinate [Toprol Xl*] 50 mg PO DAILY #30 tab 12/08/21 Levothyroxine [Synthroid*] 0.1 mg PO DAILYAC tab 12/15/21 Followup: Db Hartley MD [Primary Care Provider] - 1 Week (Call for appointment.) Deven Poole MD [ACTIVE - CAN ADMIT] - 1-2 Weeks (Call for appointment.)
--- NOTE | 2021-12-16 02:08 | PN ---
Date of Progress Note: 12/15/2021 Subjective: Seen by bedside, going very well. No shortness of breath and he converted to sinus rhyt hm. Review of Systems: No chest pain, shortness of breath, orthopnea, or cough. No nausea, vomiting, or diarrhea. All othe r systems were reviewed and they were negative. Physical Examination: Vital Signs: Reviewed. Head And Neck: Pupils are equal and reactive to light. Intact eye movements. No JVD. No cervical lymphadenopathy. Neck is supple. Thyroid is not enlarged. Lungs: Clear to auscultation bilaterally. No rhonchi, wheezing, or crackles. No accessory muscle u se. Heart: Regular rate and rhythm. No extra sounds. Abdomen: Soft, nontender. Bowel sounds positive. No organomegaly. No masses or hernia. No rigidi ty or rebound. Extremities: No edema, clubbing, or cyanosis. Intact pulses. Skin: No rash. Neurologic: Alert, awake, and oriented x3. No acute focal deficits appreciated. Investigations: BUN 55, creatinine 2.2. Assessment And Recommendation: 1.Dlals-sl-ersjylx systolic heart failure exacerbation. He was over diuresed during this hospital s [place]. Lasix was held. I will keep the Lasix on hold until creatinine approaches normal limits and th en resume at 20 mg daily. 2.Atrial fibrillation. He went into atrial fibrillation and then he is back into sinus rhythm now. Continue current treatment with amiodarone and apixaban as well as metoprolol. 3.Acute renal failure due to overdiuresis and it is getting better. Keep the Lasix on hold and reev aluate labs on Saturday. SR/MODL Voice ID: [id number] Report ID: [id number]
[2021-12-16] MEDS ORDERED: VANCOMYCIN 1.5 GM in NA CHLORIDE 0.9% 500 ML IVPB SCH (06:00)
[2021-12-19] MEDS ORDERED: EPOETIN ALFA EPBX SQ SCH (09:00)
== END 2021-12-15 13:15 | disposition home or self-care (01) | DRG 291 ==
LOC: ER 13:25 → ERHOLD 16:03 → 2ND 20:13
PROVIDERS: ADMIT Hospitalist; ATTEND Internal Medicine
DX: I13.0 Hypertensive heart and chronic kidney disease with heart failure and stage 1 through stage 4 chronic kidney disease, or unspecified chronic kidney disease (principal); I50.33 Acute on chronic diastolic (congestive) heart failure; N17.9 Acute kidney failure, unspecified; C91.10 Chronic lymphocytic leukemia of B-cell type not having achieved remission; N18.9 Chronic kidney disease, unspecified; E11.22 Type 2 diabetes mellitus with diabetic chronic kidney disease; D46.9 Myelodysplastic syndrome, unspecified; I80.9 Phlebitis and thrombophlebitis of unspecified site; I42.0 Dilated cardiomyopathy; E78.5 Hyperlipidemia, unspecified; I48.91 Unspecified atrial fibrillation; J44.9 Chronic obstructive pulmonary disease, unspecified; I25.10 Atherosclerotic heart disease of native coronary artery without angina pectoris; T50.2X5A Adverse effect of carbonic-anhydrase inhibitors, benzothiadiazides and other diuretics, initial encounter; Z95.1 Presence of aortocoronary bypass graft; Z79.01 Long term (current) use of anticoagulants; Z90.49 Acquired absence of other specified parts of digestive tract; Z79.82 Long term (current) use of aspirin; Z79.84 Long term (current) use of oral hypoglycemic drugs; Z79.890 Hormone replacement therapy; Z87.891 Personal history of nicotine dependence; Z79.899 Other long term (current) drug therapy; Z20.822 Contact with and (suspected) exposure to COVID-19
CPT/HCPCS: 36415; 71045; 71275; 80048; 80202; 81001; 82565; 82947; 83735; 83880; 84132; 84484; 85025; 85379; 87811; 93005; 96374; 96375; 99285; J1940; J2920; J3370; J7040; J7050; Q9967

== ENCOUNTER 2022-02-02 12:35 | Emergency (ER) | payer OTHER ==
--- OUTSIDE RECORDS SUMMARY | 2022-02-02 12:41 | XMS REPORT | Continuity of Care Document ---
:1940 Author Organization [facility] t Address [address] [place] [address] Care Team Providers Name Role Phone Db Hartley MD Primary Care Physician ARDEN SANTIAGO Attending Clinician Unavailable ZACHERY SEPULVEDA Attending Clinician Unavailable Zachery Sepulveda II Attending Clinician HAL HOGAN Attending Clinician Unavailable DISHA RAMIREZ Attending Clinician Unavailable ZACHERY SEPULVEDA Admitting Clinician Unavailable Zacheyr Sepulveda II Admitting Clinician DISHA RAMIREZ Admitting Clinician Unavailable Problems Condition Condition Condition Status Onset Resolution Last Treating Co mments Source Name Details Category Date Date Treatment Clinician Date SPINE SPINE Diagnosis Active 2020-09-01 Mem oria LUMBAR LUMBAR - 21:45:00 l LAMINECTOM LAMINECTOM 00:00: Toby rodarte Y Y Active 08/09/2020 [facility] LUMBAR LUMBAR Diagnosis Active 2020-08-11 Me moria DECOMPRESS DECOMPRESS -22 10:14:00 l ION, L3-4 ION, L3-4 00:00: Herm heidi Active 00 08/09/2020 [facility] Diabetes Diabetes Problem Active 2020-08-19 Memoria mellitus mellitus 22:12:26 l (disorder) (disorder) Toby rodarte Active Problem 08/19/2020 Timmy Hyperlipid Hyperlipi Problem Active 2020-08-19 Memoria emia demia 22:12:26 l (disorder) (disorder) He rmann Active Problem 08/19/2020 [facility] Hypertensi Hypertens Problem Active 2020-08-19 Memoria ve keaton 22:12:26 l disorder, disorder, Herm heidi systemic systemic arterial arterial (disorder) (disorder) Active Problem 08/19/2020 [facility] 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" [facility] Thyroid Thyroid Problem Resolve 2020-08-19 Memoria function function d 22:12:26 l tests tests Uri abnormal abnormal (finding) (finding) Resolved Problem 08/19/2020 [facility] Chronic Chronic Problem Active 2020-08-19 Me moria back pain back pain 22:12:26 l (disorder) (disorder) He rmann Active Problem 08/19/2020 [facility] Coronary Coronary Problem Active 2020-08-19 Memoria arterioscl arterioscl 22:12:26 l erosis erosis [place] (disorder) (disorder) Active Problem 08/19/2020 [facility] Allergies, Adverse Reactions, Alerts This patient has no known allergies or adverse reactions. Social History Social Habit Start Date Stop Date Quantity Comments Source History of Occasional tobacco Method ist tobacco use smoker [facility] Social History 2020-08[facility]10 [facility] 15:24:59 Sex Ass[birth year] At [birth year] [employer] 00:00:00 00:00:00 Hospital Smoking Status Start Date Stop Date Source Occasional tobacco smoker 2019-10-07 00:00:00 [facility] Medications Ordered Filled Start Stop Current Ordering [...] D3 No Notes: Memor ia 2000 intl 30 Same as : l units oral 14:00: Vitamin D3 H ermann tablet Farxiga No 10 mg, 1 Memori a 6-30 tab, l 14:00: Route: PO, [place] Drug form: TAB, Daily, Dosing Weight 81.051, [...] 6-30 (Same as: l 14:00: K-Dur 10) [place] 00 "Do Not Crush" With food and full [...] 6-30 (Same as: l 14:00: K-Dur 10) Uri 00 "Do Not Crush" With food and full [...] a 6-30 Take 1 l 11:30: hour [place] 00 before or 2 hours after meal; [...] 0 Glucagon 2020- No 1 mg, Memoria 6-30 Route: IM, l 03:53: Drug form: PDR/INJ, PRN, Dosing Weight 81, kg, PRN Blood Glucose Results, Start date: 08/16/20 22:53:00 CDT, Duration: 30 day, Stop date: 09/15/20 22:52:00 CDT, 0 Insulin 2020- No Notes: Memoria Lispro -30 (Same as: [...] 08-17 Route: PO, l 00:24: Drug form: [place] 00 TAB, ONCE, Dosing Weight 81.051, kg, PRN Pain Score 1-3, Start date: 08/16/20 19:24:00 CDT Fentanyl 2020-0 No 25 Memoria 6-30 microgram, l 00:24: Route: [place] 00 IVP, Q5Min, Dosing Weight 81.051, kg, PRN Pain Score 4-6, Priority: Routine, Start date: 08/16/20 19:24:00 CDT, Duration: 4 doses or times, Stop date: Limited # of times Hydromorpho 2020-0 No 0.5 mg, Mem oria ne 08-17 Route: l 00:24: IVP, [place] 00 Q5Min, Dosing Weight 81.051, kg, PRN Pain Score 7-10, Start date: 08/16/20 19:24:00 CDT, Duration: 4 doses or times, Stop date: Limited # of times Flumazenil 2020-0 No 0.2 mg, Lorenzo [place] 08-17 Route: l 00:24: IVP, PRN, Uri 00 Dosing Weight 81.051, kg, PRN Benzodiaze pine Reversal, Initial dose, Start date: 08/16/20 19:24:00 CDT, Duration: 30 day, Stop date: 09/15/20 19:23:00 CDT Naloxone 2020-0 No 0.4 mg, Memori a 08-17 Route: l 00:24: IVP, [place] 00 Q2MIN, Dosing Weight 81.051, kg, PRN Narcotic Reversal, Start date: 08/16/20 19:24:00 CDT, Duration: 8 doses or times, Stop date: Limited # of times Ondansetron 2020-0 No 4 mg, Memor ia 630 Route: l 00:24: IVP, ONCE, [place] 00 Dosing Weight 81.051, kg, PRN Nausea & Vomiting, Start date: 08/16/20 19:24:00 CDT Acetaminoph 2020-0 No 1,000 mg, M emoria en 30 Route: PO, l 00:24: Drug form: Uri 00 TAB, ONCE, Dosing Weight 81.051, kg, PRN Pain Score 1-3, Start date: 08/16/20 19:24:00 CDT Fentanyl 2020-0 No 25 Memoria 6-30 microgram, l 00:24: Route: [place] 00 IVP, Q5Min, Dosing Weight 81.051, kg, PRN Pain Score 4-6, Priority: Routine, Start date: 08/16/20 19:24:00 CDT, Duration: 4 doses or times, Stop date: Limited # of times Hydromorpho 2020-0 No 0.5 mg, Mem oria ne 30 Route: l 00:24: IVP, Uri 00 Q5Min, Dosing Weight 81.051, kg, PRN Pain Score 7-10, Start date: 08/16/20 19:24:00 CDT, Duration: 4 doses or times, Stop date: Limited # of times Flumazenil 2020-0 No 0.2 mg, Lorenzo [place] 630 Route: l 00:24: IVP, PRN, [place] 00 Dosing Weight 81.051, kg, PRN Benzodiaze pine Reversal, Initial dose, Start date: 08/16/20 19:24:00 CDT, Duration: 30 day, Stop date: 09/15/20 19:23:00 CDT Naloxone 2020-0 No 0.4 mg, Memori a 30 Route: l 00:24: IVP, [place] 00 Q2MIN, Dosing Weight 81.051, kg, PRN Narcotic Reversal, Start date: 08/16/20 19:24:00 CDT, Duration: 8 doses or times, Stop date: Limited # of times Ondansetron 0 No 4 mg, Memor ia 6-30 Route: l 00:24: IVP, ONCE, Dosing Weight 81.051, kg, PRN Nausea & Vomiting, Start date: 08/16/20 19:24:00 CDT propofol 2020-0 No Route: IV, Mem oria (ANES) 6-29 Drug form: l 23:47: INJ, ONCE, Stop date: 08/16/20 18:47:00 CDT ondansetron 0 No Route: IV, Memoria (ANES) 6-29 Drug form: l 23:47: INJ, ONCE, Stop date: 08/16/20 18:47:00 CDT dexamethaso 0 No Route: IV, Memoria ne (ANES) 6-29 Drug form: l 23:47: INJ, ONCE, Stop date: 08/16/20 18:47:00 CDT propofol 2020-0 No Route: IV, Mem oria (ANES) 6-29 Drug form: l 23:47: INJ, ONCE, Stop date: 08/16/20 18:47:00 CDT ondansetron 0 No Route: IV, Memoria (ANES) 6-29 Drug form: l 23:47: INJ, ONCE, Stop date: 08/16/20 18:47:00 CDT dexamethaso 2020-0 No Route: IV, Memoria ne (ANES) 6-29 Drug form: l 23:47: INJ, ONCE, Stop [...] 6-29 (Same as: l oral 22:46: Glucotrol) [place] tablet, 00 30 min extended before release meals. GlipiZIDE No Notes: Memori a XL 10 mg 6-29 (Same as: l oral 22:46: Glucotrol) [place] tablet, 00 30 min extended before release meals. normal No 1,000 mL, Memori a saline 0.9% - Rate: 75 l IV 1,000 mL 22:40: [...] not exceed l Hydrocodone 22:40: 4gm/day of [place] Bitartrate 00 acetaminop 10 MG Oral hen. (Same Tablet as: [place] [[place] 325/10) 10/325] Zofran No Notes: Memoria 6-29 (Same as: l 22:40: Zofran) [place] 00 MEDICATION WASTE Product Size: 4 mg Product Wasted: ___ mg normal No 1,000 mL, Memori a saline 0.9% 08-16 Rate: 75 l IV 1,000 mL 22:40: ml/hr, Herm heidi Infuse over: 13.3 hr, Route: IV, Dosing Weight 81.051 kg, Total Volume: 1,000, Start date: 08/16/20 17:40:00 CDT, Duration: 30 day, Stop date: 09/15/20 17:39:00 CDT, BSA: 2.02 m2, 0 Morphine No 2 mg, 1 Memori a -29 mL, Route: l 22:40: IVP, Drug form: SOLN, Q2H, Dosing Weight 81.051, kg, PRN Pain Score 7-10, Start date: 08/16/20 17:40:00 CDT, Duration: 30 day, Stop date: 09/15/20 17:39:00 CDT, 0 Acetaminoph No Notes: Do M emoria en 325 MG / 08-16 not exceed l Hydrocodone 22:40: 4gm/day of Uri Bitartrate 00 acetaminop 10 MG Oral hen. (Same Tablet as: [place] [[place] 325/10) 10/325] Zofran No Notes: Memoria 08-16 [...] 08-16 Rate: 75 l 0.0014 20:16: ml/hr, [place] MEQ/ML / 00 Infuse Potassium over: 13.3 [...] 0 Yes 2,000 Memori a 2000 intl - IntlUnit = l units oral 15:12: 1 cap, PO, H ermann capsule 00 Daily Vitamin C Yes 500 mg = 1 Me moria 500 mg oral 6-23 tab, PO, l tablet 15:12: Daily Vitamin D3 0 Yes 2,000 Memori a 2000 intl 08-10 IntlUnit = l units oral 15:12: 1 cap, PO, H ermann capsule 00 Daily Vitamin C Yes 500 mg = 1 Me moria 500 mg oral 6-23 tab, PO, l tablet 15:12: Daily [place] 00 Klor-Con 10 Yes 10 mEq, Mem oria - PO, Daily l 15:11: 00 dapaglifloz Yes 10 mg = 1 M emoria in -23 tab, PO, l propanediol 15:11: Daily Feli [...] tab, PO, l Tablet 15:10: Daily Uri sacubitril Yes 1 tab, PO, M emoria 49 MG / 6-23 BID l valsartan 15:10: Uri 51 MG Oral 00 Tablet [Entresto] Furosemide Yes 40 mg = 1 Me moria 40 MG Oral 6-23 tab, PO, l Tablet 15:10: Daily [place] sacubitril Yes 1 tab, PO, M emoria 49 MG / 6-23 BID l valsartan 15:10: [place] 51 MG Oral 00 Tablet [Entresto] Fenofibrate [...] 6-23 tab, PO, l Tablet 15:09: Daily [place] 00 GlipiZIDE Yes 10 mg = 1 Mem oria XL 10 mg 6-23 tab, PO, l oral 15:09: Daily, PRN [place] tablet, 00 GLUCOSE, extended WHEN BS IS [...] 6-23 tab, PO, l Coated 15:08: Daily [place] Tablet 00 carvedilol Yes 12.5 mg = [...] Comments Source Heart Rate 2020-08-17 17:48:35 [facility] [place] Diastolic (mm Hg) 2020-08-17 17:48:28 Mem orial Uri Heart Rate 2020-08-17 17:48:28 [facility] [place] Systolic (mm Hg) 2020-08-17 17:48:28 Lorenzo rial Uri Respitory Rate 2020-08-17 17:48:00 Memori al [place] Temperature Oral (F) 2020-08-17 17:47:51 97.6 F [facility] Uri Heart Rate 2020-08-17 13:10:21 [facility] [place] Systolic (mm Hg) 2020-08-17 13:10:14 Lorenzo rial Uri Diastolic (mm Hg) 2020-08-17 13:10:14 Mem orial [place] Temperature Oral (F) 2020-08-17 13:10:10 98.1 F [facility] [place] Systolic (mm Hg) 2020-08-17 09:11:00 Lorenzo rial Uri Diastolic (mm Hg) 2020-08-17 09:11:00 Mem orial Uri Respitory Rate 2020-08-17 09:03:40 Memori al Uri Temperature Oral (F) 2020-08-17 09:02:43 97.9 F [facility] [place] Respitory Rate 2020-08-17 04:39:50 Memori al Uri Height 2020-08-17 03:19:00 180.34 cm [facility] [place] Weight 2020-08-17 03:19:00 [facility] [place] BMI Calculated 2020-08-17 03:19:00 Memori al [place] Height 2020-08-12 18:18:00 180.34 cm Memorial [place] Weight 2020-08-12 18:18:00 [facility] [place] BMI Calculated 2020-08-12 18:18:00 Memori al [place] Height 2020-08-10 14:46:00 180.34 cm [facility] [place] Weight 2020-08-10 14:46:00 [facility] [place] BMI Calculated 2020-08-10 14:46:00 Memori al [place] Procedures Procedure Date / Time Performing Clinician Source Performed CABG x 2 - Coronary artery 2004-02-19 00:00:00 M emorial [place] bypass grafts x 2 Chemotherapy 2003-02-18 00:00:00 [facility] Neck procedure [facility] Procedure on back Tila Edmond nn Partial lobectomy of [facility] thyroid Cholecystectomy [facility] of [facility] Planned Activity Planned Date Details Comments Source Future Scheduled 2022-02-02 65+ [facility] 02:[facility]:08 VACCINE (1 - PCV) [code = 65+ PNEUMOCOCCAL VACCINE (1 - PCV)] Future Scheduled 2022-02-02 SHINGLES VACCINES (1 Met [facility] Test 02:36:08 of 2) [code = SHINGLES VACCINES (1 of 2)] Future Scheduled 2022-02-02 INFLUENZA VACCINE Method [facility] Test 02:36:08 [code = INFLUENZA VACCINE] Future Scheduled 2022-02-02 COVID-19 VACCINE (#1) [facility] Test 02:36:08 [code = COVID-19 VACCINE (#1)] Future Scheduled 2021-10-18 SHINGLES VACCINES (1 [facility] Test 22:25:36 of 2) [code = SHINGLES VACCINES (1 of 2)] Future Scheduled 2021-10-18 INFLUENZA VACCINE Method [facility] Test 22:25:36 [code = INFLUENZA VACCINE] Future Scheduled 2021-10-18 HEPATITIS B VACCINES [facility] Test 22:25:36 (1 of 3 - 3-dose series) [code = HEPATITIS B VACCINES (1 of 3 - 3-dose series)] Future Scheduled 2021-10-18 COVID-19 VACCINE (#1) [facility] Test 22:25:36 [code = COVID-19 VACCINE (#1)] Future Scheduled 2021-10-18 65+ [facility] 22:25:36 VACCINE (1 - PCV) [code = 65+ PNEUMOCOCCAL VACCINE (1 - PCV)] Future Scheduled 2021-10-18 SHINGLES VACCINES (1 Met [facility] Test 22:25:36 of 2) [code = SHINGLES VACCINES (1 of 2)] Future Scheduled 2021-10-18 INFLUENZA VACCINE [facility] Test 22:25:36 [code = INFLUENZA VACCINE] Future Scheduled 2021-10-18 HEPATITIS B VACCINES Met [facility] Test 22:25:36 (1 of 3 - 3-dose series) [code = HEPATITIS B VACCINES (1 of 3 - 3-dose series)] Future Scheduled 2021-10-18 COVID-19 VACCINE (#1) [facility] Test 22:25:36 [code = COVID-19 VACCINE (#1)] Future Scheduled 2021-10-18 65+ [facility] Test 22:25:36 VACCINE (1 - PCV) [code = 65+ PNEUMOCOCCAL VACCINE (1 - PCV)] Future Scheduled 2021-10-18 SHINGLES VACCINES (1 Met [facility] Test 22:25:36 of 2) [code = SHINGLES VACCINES (1 of 2)] Future Scheduled 2021-10-18 INFLUENZA VACCINE [facility] Test 22:25:36 [code = INFLUENZA VACCINE] Future Scheduled 2021-10-18 HEPATITIS B VACCINES [facility] Test 22:25:36 (1 of 3 - 3-dose series) [code = HEPATITIS B VACCINES (1 of 3 - 3-dose series)] Future Scheduled 2021-10-18 COVID-19 VACCINE (#1) [facility] Test 22:25:36 [code = COVID-19 VACCINE (#1)] Future Scheduled 2021-10-18 65+ [facility] Test 22:25:36 VACCINE (1 - PCV) [code = 65+ PNEUMOCOCCAL VACCINE (1 - PCV)] Encounters Start End Encounter Admission Attending Care Care Encounter Source Date/Time Date/Time Type Type Clinicians Facility Department ID 2021-09-19 2021-09-19 Outpatient ELIJAH SANTIAGO [facility] [id number] [facility] 09:36:00 23:59:00 ARDEN 2020-08-16 2020-08-17 [id number] Memoria 22:40:00 18:50:00 n r Uri 00 l [facility] 2020-08-16 2020-08-17 [facility] [id number] Memoria 22:40:00 18:50:00 n r Uri 00 l [facility] 2020-08-16 2020-08-17 Outpatient ELIJAH SEPULVEDA MED 7500 [facility]BL 17:40:00 13:50:00 ZACHERY 2020-08-16 2020-08-17 Outpatient Juan Manuel, [place] [id number] 17:40:00 13:50:00 Zachery 00 2019-10-07 2019-10-07 Outpatient AGLIECO, [facility] [id number] [place] 00:00:00 00:00:00 HAL [address] 2019-10-05 2019-10-05 Outpatient AGLIECO, [facility] [id number] [place] 00:00:00 00:00:00 HAL 621 Method i 2016-03-27 2016-03-27 Outpatient NAYUMIKOANDNC, [facility] 012 [id number] [place] 00:00:00 00:00:00 DISHA 508 Method i 2015-11-16 2015-11-16 [facility] 012 [id number] [place] 00:00:00 00:00:00 DISHA 906 Method i 2015-11-11 2015-11-11 [facility] 012 [id number] [place] 00:00:00 00:00:00 DISHA 282 Method i Results Test Description Test Time Test Comments Results Result Comments Source HEMATOLOGY 2020-08-12 18:08:00 Test Item Value Reference Range Interpretation Comme nts RBC Morph (test code = RBC Morph) See Note (08/12/20 1:08 PM) [facility] 18:08:00 Test Item Value Reference Range Interpretation Comments Plt Morph (test code = Clumped 1(08/12/20 1:08 Plt Morph) PM) [facility]BEOVPFAITA2058-73-90 18:08:00 Test Item Value Reference Range Interpretation Comments Segs (test code = Segs) 48.2 45.0-75.0 [facility]hum[facility]mmLIYYCWAWBK1114-24-32 18:08:00 Test Item Value Reference Range Interpretation Comments Lymphocytes (test code = Lymphocytes) 39.0 20.0-40.0 [facility]svazjwWCRNNANFAX3972-96-46 18:08:00 Test Item Value Reference Range Interpretation Comments Monocytes (test code = Monocytes) 11.6 2.0-12.0 [facility]mpivtqJREVVLEUZR2138-96-25 18:08:00 Test Item Value Reference Range Interpretation Comments Eosinophils (test code = 0.9 See_Comment [A utomated message] The Eosinophils) system which ge nerated this result tra nsmitted reference range : <=4.0. The reference r daniele was not used to int erpret this result as normal/abnormal . [facility] TylerTflkrzlETGEFBMTWP6203-59-34 18:08:00 Test Item Value Reference Range Interpretation Comments Basophils (test code = 0.3 See_Comment [Aut omated message] The Basophils) system which ge nerated this result tra nsmitted reference range : <=1.0. The reference r daniele was not used to int erpret this result as normal/abnormal . [place] [id number] 18:08:00 Test Item Value Reference Range Interpretation Comments Neutrophils # (test code = Neutrophils 2.0 1.5-8.1 #) [place] [id number] 18:08:00 Test Item Value Reference Range Interpretation Comments Lymphocytes # (test code = Lymphocytes 1.6 1.0-5.5 #) [place] 255841-06-25 18:08:00 Test Item Value Reference Range Interpretation Comments Monocytes # (test code 0.5 See_Comment [Aut omated message] The = Monocytes #) system which generated this result tra nsmitted reference range : <=0.8. The reference r daniele was not used to int erpret this result as normal/abnormal . [facility] Tyler[facility]atmltYNXKPIRPKE4541-25-57 18:08:00 Test Item Value Reference Range Interpretation Comments Schistocyte (test code = 1-3 per HPF Schistocyte) (08/12/20 1:08 PM) [place] [id number] 18:08:00 Test Item Value Reference Range Interpretation Comments WBC (test code = WBC) 4.1 3.7-10.4 [place] 255841-06-25 18:08:00 Test Item Value Reference Range Interpretation Comments RBC (test code = RBC) 3.74 4.70-6.10 [place] 255841-06-25 18:08:00 Test Item Value Reference Range Interpretation Comments Hgb (test code = Hgb) 11.6 14.0-18.0 [place] 255841-06-25 18:08:00 Test Item Value Reference Range Interpretation Comments Hct (test code = Hct) 36.3 42.0-54.0 [facility]JGPFU[facility]OBG7218-92-54 18:08:00 Test Item Value Reference Range Interpretation Comments MCV (test code = MCV) 97.0 80.0-94.0 [facility]fsurjdEWUWUKKOAL7536-50-82 18:08:00 Test Item Value Reference Range Interpretation Comments MCH (test code = MCH) 31.0 pg 27.0-31.0 [facility]ijmjuqJHTKAQVLWS1564-86-27 18:08:00 Test Item Value Reference Range Interpretation Comments MCHC (test code = MCHC) 32.0 32.0-36.0 [facility]JVD[facility]UDJ2811-42-78 18:08:00 Test Item Value Reference Range Interpretation Comments RDW (test code = RDW) 18.7 11.5-14.5 [facility]enAjoypcbANMLEXMRFN5047-89-72 18:08:00 Test Item Value Reference Range Interpretation Comments Platelet (test code = Platelet) 34 133-450 [facility]oniaUzqedjuUQUTHQGZJT8371-44-09 18:08:00 Test Item Value Reference Range Interpretation Comments MPV (test code = MPV) 10.1 7.4-10.4 [facility] [id number] 18:08:00 Test Item Value Reference Range Interpretation Comments Hgb A1C (test code = Hgb A1C) 6.9 [facility] [id number] 18:08:00 Test Item Value Reference Range Interpretation Comments Glucose Lvl (test code = Glucose Lvl) 175 70-99 [facility] [id number] 18:08:00 Test Item Value Reference Range Interpretation Comments BUN (test code = BUN) 27 7-22 [facility] [id number] 18:08:00 Test Item Value Reference Range Interpretation Comments Creatinine Lvl (test code = Creatinine 1.28 0.50-1.40 Lvl) [facility] [id number] 18:08:00 Test Item Value Reference Range Interpretation Comments Sodium Lvl (test code = Sodium Lvl) 141 135-145 [facility] [id number] 18:08:00 Test Item Value Reference Range Interpretation Comments Potassium Lvl (test code = Potassium 5.0 3.5-5.1 Lvl) [place] 841521-06-25 18:08:00 Test Item Value Reference Range Interpretation Comments Chloride Lvl (test code = Chloride Lvl) 106 95-109 [place] 841521-06-25 18:08:00 Test Item Value Reference Range Interpretation Comments CO2 (test code = CO2) 31 24-32 [place] 841521-06-25 18:08:00 Test Item Value Reference Range Interpretation Comments Calcium Lvl (test code = Calcium Lvl) 9.2 8.5-10.5 [place] 841521-06-25 18:08:00 Test Item Value Reference Range Interpretation Comments AGAP (test code = AGAP) 9.0 10.0-20.0 [place] 841521-06-25 18:08:00 Test Item Value Reference Range Interpretation Comments eGFR (test code = eGFR) 52 [place] 255841-06-25 18:08:00 Test Item Value Reference Range Interpretation Comments RBC Morph (test code = See Note (08/12/20 1:08 RBC Morph) PM) [place] 255841-06-25 18:08:00 Test Item Value Reference Range Interpretation Comments Plt Morph (test code = Clumped 1(08/12/20 1:08 Plt Morph) PM) [place] 255841-06-25 18:08:00 Test Item Value Reference Range Interpretation Comments Segs (test code = Segs) 48.2 45.0-75.0 [place] 255841-06-25 18:08:00 Test Item Value Reference Range Interpretation Comments Lymphocytes (test code = Lymphocytes) 39.0 20.0-40.0 [place] 255841-06-25 18:08:00 Test Item Value Reference Range Interpretation Comments Monocytes (test code = Monocytes) 11.6 2.0-12.0 [place] 255841-06-25 18:08:00 Test Item Value Reference Range Interpretation Comments Eosinophils (test code = 0.9 See_Comment [A utomated message] The Eosinophils) system which ge nerated this result tra nsmitted reference range : <=4.0. The reference r daniele was not used to int erpret this result as normal/abnormal . [place] 255841-06-25 18:08:00 Test Item Value Reference Range Interpretation Comments Basophils (test code = 0.3 See_Comment [Aut omated message] The Basophils) system which ge nerated this result tra nsmitted reference range : <=1.0. The reference r daniele was not used to int erpret this result as normal/abnormal . [place] 255841-06-25 18:08:00 Test Item Value Reference Range Interpretation Comments Neutrophils # (test code = Neutrophils 2.0 1.5-8.1 #) [place] 255841-06-25 18:08:00 Test Item Value Reference Range Interpretation Comments Lymphocytes # (test code = Lymphocytes 1.6 1.0-5.5 #) [place] 255841-06-25 18:08:00 Test Item Value Reference Range Interpretation Comments Monocytes # (test code 0.5 See_Comment [Aut omated message] The = Monocytes #) system which generated this result tra nsmitted reference range : <=0.8. The reference r daniele was not used to int erpret this result as normal/abnormal . [place] 255841-06-25 18:08:00 Test Item Value Reference Range Interpretation Comments Schistocyte (test code = 1-3 per HPF Schistocyte) (08/12/20 1:08 PM) [place] 255841-06-25 18:08:00 Test Item Value Reference Range Interpretation Comments WBC (test code = WBC) 4.1 3.7-10.4 [place] 255841-06-25 18:08:00 Test Item Value Reference Range Interpretation Comments RBC (test code = RBC) 3.74 4.70-6.10 [place] 255841-06-25 18:08:00 Test Item Value Reference Range Interpretation Comments Hgb (test code = Hgb) 11.6 14.0-18.0 [place] [address]395-06-25 18:08:00 Test Item Value Reference Range Interpretation Comments Hct (test code = Hct) 36.3 42.0-54.0 [place] [address]-06-25 18:08:00 Test Item Value Reference Range Interpretation Comments MCV (test code = MCV) 97.0 80.0-94.0 [place] 255841-06-25 18:08:00 Test Item Value Reference Range Interpretation Comments MCH (test code = MCH) 31.0 pg 27.0-31.0 [facility] [id number] 18:08:00 Test Item Value Reference Range Interpretation Comments MCHC (test code = MCHC) 32.0 32.0-36.0 [id number] 18:08:00 Test Item Value Reference Range Interpretation Comments RDW (test code = RDW) 18.7 11.5-14.5 [id number] 18:08:00 Test Item Value Reference Range Interpretation Comments Platelet (test code = Platelet) 34 133-450 [id number] 18:08:00 Test Item Value Reference Range Interpretation Comments MPV (test code = MPV) 10.1 7.4-10.4 [facility] [id number] 18:08:00 Test Item Value Reference Range Interpretation Comments Hgb A1C (test code = Hgb A1C) 6.9 [facility] [id number] 18:08:00 Test Item Value Reference Range Interpretation Comments Glucose Lvl (test code = Glucose Lvl) 175 70-99 [facility]2021-06-25 18:08:00 Test Item Value Reference Range Interpretation Comments BUN (test code = BUN) 27 7-22 [facility]2021-06-25 18:08:00 Test Item Value Reference Range Interpretation Comments Creatinine Lvl (test code = Creatinine 1.28 0.50-1.40 Lvl) [facility]2021-06-25 18:08:00 Test Item Value Reference Range Interpretation Comments Sodium Lvl (test code = Sodium Lvl) 141 135-145 [facility]2021-06-25 18:08:00 Test Item Value Reference Range Interpretation Comments Potassium Lvl (test code = Potassium 5.0 3.5-5.1 Lvl) [facility]2021-06-25 18:08:00 Test Item Value Reference Range Interpretation Comments Chloride Lvl (test code = Chloride Lvl) 106 95-109 [facility]2021-06-25 18:08:00 Test Item Value Reference Range Interpretation Comments CO2 (test code = CO2) 31 24-32 [facility]2021-06-25 18:08:00 Test Item Value Reference Range Interpretation Comments Calcium Lvl (test code = Calcium Lvl) 9.2 8.5-10.5 [facility]2021-06-25 18:08:00 Test Item Value Reference Range Interpretation Comments AGAP (test code = AGAP) 9.0 10.0-20.0 [facility]2021-06-25 18:08:00 Test Item Value Reference Range Interpretation Comments eGFR (test code = eGFR) 52 [facility] [place]
[2022-02-02 13:59] LABS: Urine Blood Negative (Negative); Urine Glucose Negative (Negative); Urine Protein 1+ (Negative); Urine Specific Gravity 1.015 (1.005-1.030)
[2022-02-02 14:17] LABS: Absolute Lymphocytes (CBC) 1.1 K/uL (0.7-4.9); Lymphocytes % 58.3 % (15.3-44.8); MCV 98.9 fL (80-100); MPV 8.5 fL (7.6-11.3); RBC Red Blood Cell Count 2.83 M/uL (4.33-5.43)
[2022-02-02 14:21] LABS: Platelet Estimate DECR; White Blood Cell Scan OK (OK)
[2022-02-02 14:22] LABS: Anisocytosis 2+; Blood Morphology Comment NOTED (NOT SEEN)
[2022-02-02 14:25] LABS: Urine Bacteria None Seen /HPF (<20); Urine RBC <5 /HPF (None Seen)
[2022-02-02 14:47] LABS: Albumin 3.3 g/dL (3.4-5.0); Potassium 4.7 mmol/L (3.5-5.1); Protein, Total 6.2 g/dL (6.4-8.2)
--- NOTE | 2022-02-02 15:25 | RAD REPORT ---
EXAM DESCRIPTION: CT - Stone Protocol - 02/02/2022 3:16 pm CLINICAL HISTORY: Flank pain. back pain COMPARISON: Chest Single View dated 10/20/2021 TECHNIQUE: Axial images were obtained without oral or IV contrast. Lack of contrast limits solid org an and vascular assessment. The [id number] spans the entirety of the system partially obscuring uppermost abdomen and lung bases. Coronal reformatted images were obtained and reviewed. All CT scans are performed using dose optimization technique as appropriate and may include automated exposure control or mA/KV adjustment according to patient size. FINDINGS: Small bilateral pleural effusions are noted with loculation on the left. Round atelectasis is suspected in the left lung base. Several cysts are present in the liver.Spleen is normal sized. Calcifications are present pancreas co mpatible chronic pancreatitis. Cholecystectomy clips. No pathologic lymphadenopathy in the abdomen or pelvis. Bilateral renal cysts are present. Small nonobstructing calculi are present both kidneys without hydr onephrosis. Generalized anasarca pattern is present. Mild free fluid is seen in the abdomen and pelvis. Mildly prominent lymph nodes are seen para-aortic region bilaterally. Normal appendix noted.Atherosclerosis is present. Mild lower lumbar degenerative changes. IMPRESSION: Generalized fluid retention pattern is seen with bilateral small pleural effusions, mild free fluid in the abdomen and mild anasarca. Small nonobstructing calculi are present in both kidneys without hydronephrosis. Chronic pancreatitis.
--- NOTE | 2022-02-02 15:58 | ER ---
Nurse's Notes [facility] Name: Harry Almendarez Age: 81 yrs Sex: Male : 1940 Arrival Date: 02/02/2022 Time: 12:39 Bed 14 Private MD: Db Hartley V Diagnosis: Low back pain;Dysuria Presentation: 02/02 13:26 Chief complaint: Patient states: burning with urination and bilateral flank pain x2-3 kb3 days. Coronavirus screen: Vaccine status: Patient reports receiving the 2nd dose of the covid vaccine. Client denies travel out of the [place] in the last 14 days. Ebola Screen: Patient negative for fever greater than or equal to 101.5 degrees Fahrenheit, and additional compatible Ebola Virus Disease symptoms Patient denies exposure to infectious person. Patient denies travel to an Ebola-affected area in the 21 days before illness onset. Initial Sepsis Screen: Does the patient meet any 2 criteria? No. Patient's initial sepsis screen is negative. Does the patient have a suspected source of infection? No. Patient's initial sepsis screen is negative. Risk Assessment: Do you want to hurt yourself or someone else? Patient reports no desire to harm self or others. Onset of symptoms was January 30, 2022. 13:26 Method Of Arrival: Wheelchair kb3 13:26 Acuity: QUINTIN 3 kb3 Triage Assessment: 13:28 General: Appears in no apparent distress. Behavior is calm, cooperative. Pain: Denies kb3 pain. : Reports burning with urination, urgency, urinary frequency. Historical: - Allergies: 13:28 No Known Allergies; kb3 - PMHx: 13:28 CHF; diabetes mellitus; kidney problems; Leukemia; LYMPHOMA; kb3 - PSHx: 13:28 Cholecystectomy; Double Bypass; Thyroidectomy; kb3 - Immunization history:: Adult Immunizations up to date, Client reports receiving the 2nd dose of the Covid vaccine. - Social history:: Smoking status: Patient denies any tobacco usage or history of. Screenin:51 Abuse screen: Denies threats or abuse. Denies injuries from another. Nutritional db screening: No deficits noted. Tuberculosis screening: No symptoms or risk factors identified. Fall Risk No secondary diagnosis (0 pts). No IV (0 pts). Ambulatory Aid- None/Bed Rest/Nurse Assist (0 pts). Gait- Normal/Bed Rest/Wheelchair (0 pts) Mental Status- Oriented to own ability (0 pts). Total Barksdale Fall Scale indicates No Risk (0-24 pts). Assessment: 13:50 Reassessment: Patient appears in no apparent distress at this time. Patient is alert, db oriented x 3, equal unlabored respirations, skin warm/dry/pink. urinary burning x 3 days. 14:12 General: Appears in no apparent distress. comfortable, Behavior is calm, cooperative, db appropriate for age, quiet. Pain: Complains of pain in flank. Neuro: No deficits noted. Level of Consciousness is awake, alert, obeys commands, Oriented to person, place, time, situation, Appropriate for age Speech is normal, Facial symmetry appears normal. Cardiovascular: No deficits noted. Capillary refill < 3 seconds. Respiratory: No deficits noted. Airway is patent Respiratory effort is even, unlabored, Respiratory pattern is regular, symmetrical. GI: No deficits noted. No signs and/or symptoms were reported involving the gastrointestinal system. : Reports burning with urination, since 3 days. EENT: No deficits noted. No signs and/or symptoms were reported regarding the EENT system. Derm: No deficits noted. No signs and/or symptoms reported regarding the dermatologic system. Vital Signs: 13:26 BP 110 / 66; Pulse 100; Resp 20; Temp 98.1; Pulse Ox 100% ; Weight 93.89 kg; Height 5 kb3 ft. 11 in. (180.34 cm); Pain 0/10; 13:51 BP 103 / 65; Pulse 103; Resp 18; Pulse Ox 99% on R/A; db 16:21 BP 109 / 63; Pulse 95; Resp 18; Pulse Ox 99% on R/A; db 13:26 Body Mass Index 28.87 (93.89 kg, 180.34 cm) kb3 ED Course: 12:39 Patient arrived in ED. rg4 12:39 Db Hartley MD is Private Physician. rg4 13:13 Star Morris PA is PHCP. cp 13:13 Andrea Quinonez MD is Attending Physician. cp 13:28 Triage completed. kb3 13:28 Arm band placed on left wrist. kb3 13:41 Aditi Lieberman, ANGELLA is Primary Nurse. db 13:51 Patient has correct armband on for positive identification. Bed in low position. Call db light in reach. Side rails up X 1. Pulse ox on. NIBP on. Door closed. Warm blanket given. 14:08 Inserted saline lock: 20 gauge in left antecubital area, using aseptic technique. Blood db collected. 15:18 CT Stone Protocol In Process Unspecified. EDMS Administered Medications: No medications were administered Medication: 13:51 VIS not applicable for this client. db Outcome: 15:57 Discharge ordered by . delta 16:21 Patient left the ED. mm9 Signatures: Dispatcher [employer] EDMS Star Morris PA PA cp Garcia, Rubi rg4 Maren Scott, RN RN kb3 Aditi Lieberman, RN RN Vicky Marquis mm9
--- NOTE | 2022-02-02 15:58 | EDPHYS ---
Physician Documentation [facility] Name: Harry Almendarez Age: 81 yrs Sex: Male : 1940 Arrival Date: 02/02/2022 Time: 12:39 Bed 14 Private MD: Db Hartley V ED Physician Andrea Quinonez HPI: 02/02 13:35 This 81 yrs old Male presents to ER via Wheelchair with complaints of Urinary Problem. cp 13:35 The patient presents with pain that is acute, with no known mechanism of injury. The cp symptoms are located in the mid back area. 13:35 Onset: The symptoms/episode began/occurred 3 day(s) ago. The pain does not radiate. cp Associated signs and symptoms: Pertinent positives: dysuria, Pertinent negatives: abdominal pain, constipation, fever, headache, incontinence, numbness, tingling, vomiting, weakness. Severity of symptoms: in the emergency department the symptoms are unchanged, despite home interventions. Historical: - Allergies: 13:28 No Known Allergies; kb3 - PMHx: 13:28 CHF; diabetes mellitus; kidney problems; Leukemia; LYMPHOMA; kb3 - PSHx: 13:28 Cholecystectomy; Double Bypass; Thyroidectomy; kb3 - Immunization history:: Adult Immunizations up to date, Client reports receiving the 2nd dose of the Covid vaccine. - Social history:: Smoking status: Patient denies any tobacco usage or history of. ROS: 13:40 Constitutional: Negative for body aches, chills, fever, poor PO intake. cp 13:40 Eyes: Negative for injury, pain, redness, and discharge. cp 13:40 ENT: Negative for drainage from ear(s), ear pain, sore throat, difficulty swallowing, difficulty handling secretions. 13:40 Cardiovascular: Negative for chest pain, palpitations. 13:40 Respiratory: Negative for cough, shortness of breath, wheezing. 13:40 Abdomen/GI: Negative for abdominal pain, nausea, vomiting, and diarrhea, constipation. 13:40 Back: Positive for pain at rest, of the mid back area. 13:40 Skin: Negative for rash. 13:40 Neuro: Negative for altered mental status, headache, numbness, weakness. 13:40 : Positive for burning with urination, Negative for hematuria, testicular pain cp 13:40 All other systems are negative. cp Exam: 13:45 Constitutional: The patient appears in no acute distress, alert, awake, comfortable, cp non-toxic, well developed, well nourished. 13:45 Head/Face: Normocephalic, atraumatic. cp 13:45 Eyes: Periorbital structures: appear normal, Conjunctiva: normal, no exudate, no injection, Sclera: no appreciated abnormality, Lids and lashes: appear normal, bilaterally. 13:45 ENT: External ear(s): are unremarkable, Nose: is normal, Mouth: Lips: moist, Oral mucosa: moist, Posterior pharynx: Airway: no evidence of obstruction, patent. 13:45 Neck: ROM/movement: is normal, is supple, without pain, no range of motions limitations. 13:45 Chest/axilla: Inspection: normal. 13:45 Cardiovascular: Rate: tachycardic, Rhythm: regular, Edema: ankle edema, that is very mild, JVD: is not appreciated. 13:45 Respiratory: the patient does not display signs of respiratory distress, Respirations: normal, no use of accessory muscles, no retractions, labored breathing, is not present, Breath sounds: are clear throughout, no decreased breath sounds, no stridor, no wheezing. 13:45 Abdomen/GI: Inspection: abdomen appears normal, Bowel sounds: active, all quadrants, Palpation: abdomen is soft and non-tender, in all quadrants. 13:45 Back: pain, that is very mild, of the mid back area, ROM is normal. 13:45 Neuro: Orientation: to person, place \T\ time. Mentation: is normal, Motor: moves all fours, strength is normal, Sensation: is normal. Vital Signs: 13:26 BP 110 / 66; Pulse 100; Resp 20; Temp 98.1; Pulse Ox 100% ; Weight 93.89 kg; Height 5 kb3 ft. 11 in. (180.34 cm); Pain 0/10; 13:51 BP 103 / 65; Pulse 103; Resp 18; Pulse Ox 99% on R/A; db 16:21 BP 109 / 63; Pulse 95; Resp 18; Pulse Ox 99% on R/A; db 13:26 Body Mass Index 28.87 (93.89 kg, 180.34 cm) kb3 MDM: 13:30 Patient medically screened. cp 15:55 Data reviewed: vital signs, nurses notes, lab test result(s), radiologic studies, CT cp scan. 15:55 Differential diagnosis: Pyelonephritis Ureterolithiasis uti. Counseling: I had a cp detailed discussion with the patient and/or guardian regarding: the historical points, exam findings, and any diagnostic results supporting the discharge/admit diagnosis, lab results, radiology results, to return to the emergency department if symptoms worsen or persist or if there are any questions or concerns that arise at home. ED course: VSS. Recommend OTC meds for pain. UA and urine micro negative for infection. Will discharge to home for continued monitoring. 02/02 13:30 Order name: CBC with Diff; Complete Time: 14:22 02/02 14:38 Interpretation: Normal except: WBC 1.80; RBC 2.83; HGB 8.8; HCT 28.0; MCHC 31.5; PLT cp 16; RDW 22.6; NICHELLE% 29.8; LYM% 58.3; NEUT A 0.5. 02/02 13:30 Order name: CMP; Complete Time: 14:59 02/02 14:59 Interpretation: Normal except: GLUC 131; BUN 33; CRE 1.85; GFR 36; CA 8.4; TP 6.2; ALB cp 3.3. 02/02 13:30 Order name: Lipase; Complete Time: 14:59 02/02 13:30 Order name: Urine Microscopic Only; Complete Time: 14:33 02/02 14:34 Interpretation: Reviewed. 02/02 13:59 Order name: Urine Dipstick-Ancillary; Complete Time: 14:06 EDWA 02/02 14:06 Interpretation: Normal except: UPH 8.0; UPROT 1+. 02/02 14:22 Order name: CBC Smear Scan; Complete Time: 14:22 EDWA 02/02 13:30 Order name: IV Saline Lock; Complete Time: 14:12 02/02 13:30 Order name: Labs collected and sent; Complete Time: 14:12 02/02 13:30 Order name: Urine Dipstick-Ancillary (obtain specimen); Complete Time: 14:12 02/02 15:01 Order name: CT Stone Protocol; Complete Time: 15:26 cp Administered Medications: No medications were administered Disposition Summary: 02/02/22 15:57 Discharge Ordered Location: Home cp Problem: new cp Symptoms: have improved cp Condition: Stable cp Diagnosis - Low back pain cp - Dysuria cp Followup: cp - With: Private Physician - When: 2 - 3 days - Reason: Recheck today's complaints Discharge Instructions: - Discharge Summary Sheet cp - Acute Back Pain, Adult cp - Dysuria cp Forms: - Medication Reconciliation Form cp - Thank You Letter cp - Antibiotic Education cp - Prescription Opioid Use cp Signatures: Dispatcher [employer] EDMS Star Morris PA PA cp Maren Scott, RN RN kb3 Corrections: (The following items were deleted from the chart) 15:24 15:10 Urine Test ordered. cp cp 02/03 15:45 02/02 13:40 All other systems are negative, cp cp
[2022-02-02 16:51] VITALS: TEMP 98.1
[2022-02-02 16:57] VITALS: O2SAT 99
[2022-02-02 17:03] VITALS: BP 109/63
== END 2022-02-02 16:21 | disposition home or self-care (01) ==
LOC: ER 12:35
DX: M54.50 Low back pain, unspecified (principal); R30.0 Dysuria; E11.9 Type 2 diabetes mellitus without complications; I50.9 Heart failure, unspecified; Z95.1 Presence of aortocoronary bypass graft
CPT/HCPCS: 36415; 74176; 76377; 80053; 81003; 81015; 83690; 85025; 99284

== ENCOUNTER 2022-03-28 07:18 | Day surgery (SDC) | payer OTHER ==
[2022-03-28] MEDS ORDERED: NA CHLORIDE 0.9% 250 ML ONE (07:49)
[2022-03-28 08:58] VITALS: BP 106/53; TEMP 97.8; O2SAT 100; BMI 24.1
[2022-03-28 15:13] LABS: Hematocrit 28.5 % (39.6-49.0)
== END 2022-03-28 15:00 | disposition home or self-care (01) ==
LOC: DS 07:18
PROVIDERS: ATTEND Internal Medicine Hematology & Oncology
DX: C83.08 Small cell B-cell lymphoma, lymph nodes of multiple sites (principal); D69.59 Other secondary thrombocytopenia; D72.828 Other elevated white blood cell count; D63.0 Anemia in neoplastic disease
CPT/HCPCS: 36415; 86900; 86850; 86901; 85018; 85014; 36430; P9016 ×2; J7050